=== PATIENT | female | born 1950 | race Caucasian/White ===

== ENCOUNTER → 2020-03-12 12:50 | Outpatient (BNVA) | payer MEDICARE, SELFPAY | PROVIDERS: PCP Internal Medicine; Visit Provider Anesthesiology | DX: M17.0 Bilateral primary osteoarthritis of knee (principal); M47.816 Spondylosis without myelopathy or radiculopathy, lumbar region; G89.4 Chronic pain syndrome | CPT/HCPCS: 99202 ==

== ENCOUNTER 2020-03-24 09:38 | Outpatient (REF) | payer MEDICARE, SELFPAY ==
--- NOTE | 2020-03-24 10:48 | XR_ITS ---
EXAMINATION: BILATERAL KNEE X-RAY CLINICAL INFORMATION: Bilateral osteoarthritis COMPARISON: None TECHNIQUE: 3 views of each knee FINDINGS: Right: Bone alignment is normal. No fracture or dislocation is seen. There is mild medial femoral tibial joint space narrowing. Joint spaces are otherwise normal. There is no joint effusion. Left: Bone alignment is normal. No fracture or dislocation is seen. There is mild medial femoral tibial joint space narrowing. Joint spaces are otherwise normal. There is no joint effusion. XR/XR knee RT 3V IMPRESSION: Mild bilateral medial femoral tibial joint space narrowing.
--- NOTE | 2020-03-24 10:48 | XR_ITS ---
EXAMINATION: BILATERAL KNEE X-RAY CLINICAL INFORMATION: Bilateral osteoarthritis COMPARISON: None TECHNIQUE: 3 views of each knee FINDINGS: Right: Bone alignment is normal. No fracture or dislocation is seen. There is mild medial femoral tibial joint space narrowing. Joint spaces are otherwise normal. There is no joint effusion. Left: Bone alignment is normal. No fracture or dislocation is seen. There is mild medial femoral tibial joint space narrowing. Joint spaces are otherwise normal. There is no joint effusion. XR/XR knee LT 3V IMPRESSION: Mild bilateral medial femoral tibial joint space narrowing.
== END 2020-03-24 09:39 | disposition home or self-care (01) ==
LOC: HO.XRAY 09:38
PROVIDERS: PCP Internal Medicine; Visit Provider Anesthesiology
DX: M17.0 Bilateral primary osteoarthritis of knee (principal)
CPT/HCPCS: 73562; 99212

== ENCOUNTER 2020-04-08 07:41 | Outpatient (REF) | payer MEDICARE, SELFPAY ==
--- NOTE | 2020-04-08 08:02 | FL_ITS ---
EXAMINATION: XR FLUOROSCOPY WITH IMAGES CLINICAL INFORMATION: Spondylosis without myelopathy or radiculopathy, lumbar region COMPARISON: None. TECHNIQUE: Fluoroscopy time: 0.9 minutes DAP: 7.87 Gycm2 Images: 7 FINDINGS: Multiple intraoperative fluoroscopic images are submitted during injection of the lumbar spine. Correlation with operative report. Evaluation is limited secondary to fluoroscopic technique. FL/FL guidance in treatment room IMPRESSION: Intra-operative fluoroscopic imaging provided by radiology during injection of the lumbar spine. Please refer to operative note for further information.
== END 2020-04-08 07:42 | disposition home or self-care (01) ==
LOC: HO.RADIR 07:41
PROVIDERS: Visit Provider Anesthesiology
DX: M47.816 Spondylosis without myelopathy or radiculopathy, lumbar region (principal); M17.0 Bilateral primary osteoarthritis of knee; G89.4 Chronic pain syndrome; Z88.1 Allergy status to other antibiotic agents; Z88.2 Allergy status to sulfonamides
CPT/HCPCS: 64493; 64494; 64495; Q9967

== ENCOUNTER → 2020-04-09 10:18 | Outpatient (BNVA) | payer MEDICARE, SELFPAY | PROVIDERS: PCP Internal Medicine; Visit Provider Anesthesiology | DX: M17.0 Bilateral primary osteoarthritis of knee (principal); M47.816 Spondylosis without myelopathy or radiculopathy, lumbar region; G89.4 Chronic pain syndrome | CPT/HCPCS: 99212 ==

== ENCOUNTER → 2020-04-14 11:31 | Outpatient (BNVA) | payer MEDICARE, SELFPAY | PROVIDERS: PCP Internal Medicine; Visit Provider Anesthesiology | DX: M17.0 Bilateral primary osteoarthritis of knee (principal); M47.816 Spondylosis without myelopathy or radiculopathy, lumbar region; G89.4 Chronic pain syndrome | CPT/HCPCS: Q3014 ==

== ENCOUNTER → 2020-05-07 09:41 | Outpatient (BNVA) | payer MEDICARE, SELFPAY | PROVIDERS: PCP Internal Medicine; Visit Provider Anesthesiology | DX: M17.0 Bilateral primary osteoarthritis of knee (principal); M47.816 Spondylosis without myelopathy or radiculopathy, lumbar region; G89.4 Chronic pain syndrome; Z79.899 Other long term (current) drug therapy | CPT/HCPCS: 99212 ==

== ENCOUNTER → 2020-06-27 09:59 | Outpatient (BNVA) | payer MEDICARE, SELFPAY | PROVIDERS: PCP Internal Medicine; Visit Provider Nurse Practitioner Family | DX: M17.0 Bilateral primary osteoarthritis of knee (principal); M47.816 Spondylosis without myelopathy or radiculopathy, lumbar region; G89.4 Chronic pain syndrome | CPT/HCPCS: 99212 ==

== ENCOUNTER 2020-07-15 06:20 | Outpatient (REF) | payer MEDICARE, SELFPAY ==
--- NOTE | ~2020-07-15 | FL_ITS ---
EXAMINATION: XR FLUOROSCOPY WITH IMAGES CLINICAL INFORMATION: M47.816 - Spondylosis without myelopathy or radiculopathy COMPARISON: Fluoroscopic images 04/08/2020 TECHNIQUE: Fluoroscopy performed by Siena Bearden NP. Fluoroscopy time: 0.6 minutes DAP: 4.23 Gycm2 Images: 8 FINDINGS: There may be lumbar segmentation anomaly with transitional vertebrae lumbosacral junction. There are lumbar degenerative disc changes. There are surgical clips seen and possibly lumbosacral disc spacer again noted. There are spinal needles overlying the outer aspect left neural foramina at the first through fourth presacral disc spaces and also on the right fourth presacral disc space outer neural foramen. There is associated contrast in the nerve sheaths. FL/FL guidance in treatment room IMPRESSION: Fluoroscopy for pain management procedures.
== END 2020-07-15 06:21 | disposition home or self-care (01) ==
LOC: HO.RADIR 06:20
PROVIDERS: Visit Provider Anesthesiology
DX: M47.816 Spondylosis without myelopathy or radiculopathy, lumbar region (principal)
CPT/HCPCS: 64493; 64494; 64495; Q9967

== ENCOUNTER → 2020-07-21 10:58 | Outpatient (BNVA) | payer MEDICARE, SELFPAY | PROVIDERS: PCP Internal Medicine; Visit Provider Anesthesiology | DX: M54.5 Low back pain (principal) | CPT/HCPCS: 99211 ==

== ENCOUNTER → 2020-07-25 09:52 | Outpatient (BNVA) | payer MEDICARE, SELFPAY | PROVIDERS: PCP Internal Medicine; Visit Provider Nurse Practitioner Family | DX: M17.0 Bilateral primary osteoarthritis of knee (principal); M47.816 Spondylosis without myelopathy or radiculopathy, lumbar region; G89.4 Chronic pain syndrome | CPT/HCPCS: 99212 ==

== ENCOUNTER → 2020-08-22 09:27 | Outpatient (BNVA) | payer MEDICARE, SELFPAY | PROVIDERS: PCP Internal Medicine; Visit Provider Nurse Practitioner Family | DX: M47.816 Spondylosis without myelopathy or radiculopathy, lumbar region (principal); M17.0 Bilateral primary osteoarthritis of knee; G89.4 Chronic pain syndrome; Z79.899 Other long term (current) drug therapy | CPT/HCPCS: 99212 ==

== ENCOUNTER → 2020-09-18 10:12 | Outpatient (BNVA) | payer MEDICARE, SELFPAY | PROVIDERS: PCP Internal Medicine; Visit Provider Anesthesiology | DX: M17.0 Bilateral primary osteoarthritis of knee (principal); M47.816 Spondylosis without myelopathy or radiculopathy, lumbar region; G89.4 Chronic pain syndrome | CPT/HCPCS: 99212 ==

== ENCOUNTER → 2020-10-14 10:37 | Outpatient (BNVA) | payer MEDICARE, SELFPAY | PROVIDERS: PCP Internal Medicine; Visit Provider Nurse Practitioner Family | DX: M17.0 Bilateral primary osteoarthritis of knee (principal); M47.816 Spondylosis without myelopathy or radiculopathy, lumbar region; G89.4 Chronic pain syndrome | CPT/HCPCS: 99212 ==

== ENCOUNTER → 2020-11-12 09:55 | Outpatient (BNVA) | payer MEDICARE, SELFPAY | PROVIDERS: PCP Internal Medicine; Visit Provider Anesthesiology | DX: M17.0 Bilateral primary osteoarthritis of knee (principal); M47.816 Spondylosis without myelopathy or radiculopathy, lumbar region; G89.4 Chronic pain syndrome | CPT/HCPCS: 99212 ==

== ENCOUNTER 2020-12-05 11:24 | Day surgery (SDC) | payer MEDICARE, SELFPAY ==
[2020-12-01 14:21] VITALS: BMI 23.8
--- NOTE | ~2020-12-05 | FL_ITS ---
EXAMINATION: XR FLUOROSCOPY WITH IMAGES CLINICAL INFORMATION: Back pain. MBB ablation. COMPARISON: Fluoroscopic spot views 07/15/2020 TECHNIQUE: Fluoroscopy performed by Dr. Goran Crook. Fluoroscopy time: 1.14 minutes DAP: 9.43 Gycm2 Images: 3 FINDINGS: There are needles/electrodes overlying the bilateral outer L2, L3, L4, and L5 neural foramen. There are degenerative changes again noted lower lumbar spine. Surgical clips and probable lumbosacral disc space are again noted. FL/FL guidance in OR IMPRESSION: Fluoroscopy for pain management procedures.
--- NOTE | 2020-12-05 07:20 | MHC.SHP ---
Pre-Procedural Eval Section A Date of Service: 12/05/20 The patient is an INPATIENT: No Changes since office visit: Yes Patient answered all questions The History & Physical has been completed within 30 days and I have reviewed it.: No Section B Chief Complaint: Spondylosis of Lumbar Spine Details of Present Illness: as above Relevant Family History (Specify if Yes): No Relevant Social History: None Present Medications: see Short Stay Collaborative assessment Medical History: No relevant PMH History of Previous Operations: No relevant previous surgery Allergies: Allergies Allergy/AdvReac Type Severity Reaction Status Date / Time sulfamethoxazole Allergy anaphylaxis Verified 11/12/20 10:17 [From Bactrim] trimethoprim [From Bactrim] Allergy anaphylaxis Verified 11/12/20 10:17 Review of Systems Sugical H&P ROS: Negative: Constitution, Cardiovascular, Respiratory, Neurological, Psychiatric, Hem-Onc, Allergic/Immunologic, Gastrointestinal, Genitourinary, Musculoskeletal, Integumentary, Endocrine and Eyes/Ears/Nose/Throat Exam Surgical H&P Exam: Normal: HEENT, Normal: Heart, Normal: Lungs, Normal: Extremities, Normal: Abdomen, Normal: Skin and Normal: Neurological Plan Diagnosis/Plan: Unchanged I have reviewed the history and physical and performed a pertinent physical examination on my patient. No changes have occurred unless specified.
--- NOTE | 2020-12-05 07:35 | P.OP_ITS ---
Operative Note Operative Note Date of Service: 12/05/20 Narrative: ? Informed consent was explained to the patient. All questions were explained and answered.? The patient was taken inside of the operating room where she was positioned prone on the operating table.?ASA monitors applied and the patient was deeply sedated. ? Time-out was performed delineating patient's name and date of , correct site, side, the nature of the procedure, patient's allergy, preoperative antibiotic if needed.? All operating room staff was participating in OR time-out procedure.?? ? Her lower back was prepped with duraprep and draped with sterile towels.? Sterilely draped C-arm was brought over the operating field and sq picture of L3,L4-5 vertebra as and S1 vertebra were delineated on the screen.Significant scolyotic rotation of the spine was noted on the images.? Points of interest were delineated as connection of superior articular process of L3, L4 and L5 vertebra bilaterally with corresponding transverse processes as well as connection of the sacral alae bilaterally with superior articular process of S1.? The projection of the point of interest to the skin were injected with the small amount of local anesthetic lidocaine 2% 1-1.5 cc.? And after that 18 gauge 100 mm radiofrequency cannulas were driven to the point of interest in tunnel vision fashion under oblique view .? After needles gently contacted the bone at the point of interests the stylets were removed from the needles and electrodes were inserted into the needles.? Electrodes were connected to the radiofrequency machine and testing was performed for the patient's motor function.? There were no pathological motor response indicating stimulation of somatic nerves.? After that electrodes were removed and each needle was injected with small amount of bupivacaine 0.5% 1-1.5 cc mixed with trace amount of Kenalog.? Upon completion of the injections the electrodes were reinserted and energy of 80 degree centigrade for 90 seconds- was applied to each needle 1st on the left side and then on the right.? Upon completion of the energy application the needles were rotated 180? and energy applied with the same temperature and with the same time.? Upon completion of the injections needles were removed and sterile dress ings were applied. After performing procedure on the right side the procedure was repeated on the left. The technique was used the same. Patient recovered uneventfully and went home without immediate complications.
[2020-12-05 11:59] VITALS: BP 137/73; PULSE 74; RESP 15; TEMP 36.6; O2SAT 96; BMI 23.8
--- NOTE | 2020-12-05 12:11 | HO.ANESPROP2 ---
[facility] Active Problems Active Problems: All Active Problems (Updated 12/01/20 @ 14:15 by Silke Lara RN) Chronic pain syndrome (Acute) Spondylosis of lumbar spine (Acute) Osteoarthritis of knees, bilateral (Acute) Past Medical History Medical History Chronic pain syndrome HTN (hypertension) Hypothyroid Migraine Osteoarthritis of knees, bilateral Spondylosis of lumbar spine Surgical History History of Problems with Anesthesia: No Social History Social History Advance Directives Information Provided: Yes (informational brochure mailed to patient) Meds Allergies Allergy/AdvReac Type Severity Reaction Status Date / Time sulfamethoxazole Allergy anaphylaxis Verified 11/12/20 10:17 [From Bactrim] trimethoprim [From Bactrim] Allergy anaphylaxis Verified 11/12/20 10:17 Home Medications Medication Instructions Recorded Confirmed Last Taken Type cyclobenzaprine 10 mg tablet 10 mg PO TID 06/27/20 10/14/20 Unknown History amlodipine 5 mg tablet 5 mg PO DAILY tab 10/14/20 10/14/20 Unknown History [id number]-gnlqfgwx 1 cap PO ONCE PRN cap 10/14/20 10/14/20 Unknown History 50 mg-300 mg-40 mg capsule levothyroxine 125 mcg tablet 125 mcg PO DAILY tab 10/14/20 10/14/20 12/05/20 History 125 mcg trazodone 100 mg tablet 100 mg PO BEDTIME tab 10/14/20 10/14/20 Unknown History lisinopril 10 mg tablet mg PO 11/12/20 Unknown History Exam Exam Date and Time: December 05, 2020 1211 Height,Weight and Vital Signs: Height 5 ft 2 in Weight 58.967 kg Last Vital Signs Temp 97.9 F 12/05/20 11:59 Pulse 74 12/05/20 11:59 Resp 15 12/05/20 11:59 BP 137/73 12/05/20 11:59 Pulse Ox 96 12/05/20 11:59 Airway Mallampati Class: II TM Dist: >3cm Neck ROM: Full Loose/Missing/Broken Teeth: No Heart: RRR Lungs: CTA Assessment and Plan Assessment Anesthesia Assessment: Anesthesia Plan Discussed and Chart Reviewed Final Anesthetic Review History of Problems with Anesthesia: No NPO: Yes ASA Class: II Final Preanesthetic Review: Meds/Allgs Chart Reviewed, Consent Obtained/Reviewed and Anes Risks/Benef Reviewed Patient Risk: Low Procedure Risk: Intermediate Anesthetic Plan Anesthetic Plan: MAC: Disposition: Standard PACU
[2020-12-05 14:00] VITALS: BP 110/59; PULSE 79; RESP 11; TEMP 36.2; O2SAT 96
--- NOTE | 2020-12-05 14:06 | P.BOP_ITS ---
Brief Operative Note Date of Service: 12/05/20 Pre-op diagnosis: spondylosis and scoliosis lumbar spine. Post-op diagnosis: same Procedure: RFA L2, L3, L4, L5 bilateral median branches. Surgeon: Goran Crook MD Anesthesia: MAC Was an Anode Rebuilder used for this Procedure?: No Estimated blood loss (mL): 6 Pathology: none sent Condition: stable Disposition: PACU
[2020-12-05 14:15] VITALS: BP 121/69; PULSE 75; RESP 16; O2SAT 96
[2020-12-05 14:30] VITALS: BP 136/74; PULSE 77; RESP 16; TEMP 36.2; O2SAT 96
== END 2020-12-05 14:45 | disposition home or self-care (01) ==
PROVIDERS: PCP Internal Medicine; Visit Provider Anesthesiology
PROC: (CPT 64635; principal; 2020-12-05 12:50)
DX: M47.816 Spondylosis without myelopathy or radiculopathy, lumbar region (principal); G89.4 Chronic pain syndrome; M17.0 Bilateral primary osteoarthritis of knee; Z79.899 Other long term (current) drug therapy; Z88.2 Allergy status to sulfonamides; Z88.1 Allergy status to other antibiotic agents
CPT/HCPCS: 64635; 64636; J2250; J3010; J3300

== ENCOUNTER → 2020-12-10 10:14 | Outpatient (BNVA) | payer MEDICARE, SELFPAY | PROVIDERS: PCP Internal Medicine; Visit Provider Anesthesiology | DX: Z51.81 Encounter for therapeutic drug level monitoring (principal); M17.0 Bilateral primary osteoarthritis of knee; M47.816 Spondylosis without myelopathy or radiculopathy, lumbar region; G89.4 Chronic pain syndrome | CPT/HCPCS: 99212 ==

== ENCOUNTER → 2021-01-07 10:28 | Outpatient (BNVA) | payer MEDICARE, SELFPAY | PROVIDERS: PCP Internal Medicine; Visit Provider Anesthesiology | DX: Z51.81 Encounter for therapeutic drug level monitoring (principal); M17.0 Bilateral primary osteoarthritis of knee; M47.816 Spondylosis without myelopathy or radiculopathy, lumbar region; G89.4 Chronic pain syndrome | CPT/HCPCS: 99212 ==

== ENCOUNTER → 2021-02-11 10:22 | Outpatient (BNVA) | payer MEDICARE, SELFPAY | PROVIDERS: PCP Internal Medicine; Visit Provider Anesthesiology | DX: Z51.81 Encounter for therapeutic drug level monitoring (principal); M17.0 Bilateral primary osteoarthritis of knee; M47.816 Spondylosis without myelopathy or radiculopathy, lumbar region; G89.4 Chronic pain syndrome | CPT/HCPCS: 99212 ==

== ENCOUNTER → 2021-03-16 12:25 | Outpatient (BNVA) | payer MEDICARE, SELFPAY | PROVIDERS: PCP Internal Medicine; Visit Provider Anesthesiology | DX: Z51.81 Encounter for therapeutic drug level monitoring (principal); F11.20 Opioid dependence, uncomplicated | CPT/HCPCS: 99211 ==

== ENCOUNTER → 2021-04-13 13:57 | Outpatient (BNVA) | payer MEDICARE, SELFPAY | PROVIDERS: PCP Internal Medicine; Visit Provider Anesthesiology | DX: Z51.81 Encounter for therapeutic drug level monitoring (principal); F11.20 Opioid dependence, uncomplicated; M17.0 Bilateral primary osteoarthritis of knee; M47.816 Spondylosis without myelopathy or radiculopathy, lumbar region; G89.4 Chronic pain syndrome | CPT/HCPCS: 99212 ==

== ENCOUNTER → 2021-05-11 10:52 | Outpatient (BNVA) | payer MEDICARE, SELFPAY | PROVIDERS: PCP Internal Medicine; Visit Provider Anesthesiology | DX: Z51.81 Encounter for therapeutic drug level monitoring (principal); F11.20 Opioid dependence, uncomplicated; M17.0 Bilateral primary osteoarthritis of knee; M47.816 Spondylosis without myelopathy or radiculopathy, lumbar region; G89.4 Chronic pain syndrome | CPT/HCPCS: 99212 ==

== ENCOUNTER 2021-06-12 10:06 | Day surgery (SDC) | payer MEDICARE, SELFPAY ==
--- NOTE | 2021-06-11 12:37 | P.CONAN_ITS ---
Documented by User: Lynsey Polanco NP 06/11/21 12:42 HPI - Anesthesia Eval Consult details Narrative: 70yo F for Bilateral Medial Branch Radiofrequency AB s/p same 12/2020 with MAC Chronic opioids PMFSH Active Problems Active Problems: All Active Problems (Updated 12/01/20 @ 14:15 by Silke Lara RN) Chronic pain syndrome (Acute) Spondylosis of lumbar spine (Acute) Osteoarthritis of knees, bilateral (Acute) Past Medical History Medical History Chronic pain syndrome HTN (hypertension) Hypothyroid Migraine Osteoarthritis of knees, bilateral Spondylosis of lumbar spine Surgical History History of Problems with Anesthesia: No Social History Social History Patient Tobacco Use Status: Never used Tobacco Second Hand Smoke Exposure: No Use of substances other than those prescribed or required for medical reasons: No Are you DNR?: No Advance Directives: No Advance Directives Information Provided: Yes Advance Directives on File: No Meds Allergies Allergy/AdvReac Type Severity Reaction Status Date / Time sulfamethoxazole Allergy anaphylaxis Verified 05/11/21 11:11 [From Bactrim] trimethoprim [From Bactrim] Allergy anaphylaxis Verified 05/11/21 11:11 Home Medications Medication Instructions Recorded Confirmed Last Taken Type cyclobenzaprine 10 mg tablet 10 mg PO TID 06/27/20 03/16/21 Unknown History amlodipine 5 mg tablet 5 mg PO DAILY tab 10/14/20 03/16/21 06/12/21 History levothyroxine 125 mcg tablet 125 mcg PO DAILY tab 10/14/20 03/16/21 06/12/21 History trazodone 100 mg tablet 100 mg PO BEDTIME tab 10/14/20 03/16/21 Unknown History lisinopril 10 mg tablet mg PO 11/12/20 03/16/21 Unknown History Exam Exam Date and Time: June 11, 2021 123 Assessment and Plan Assessment Anesthesia Assessment: Chart Reviewed Final Anesthetic Review History of Problems with Anesthesia: No Documented by User: Kiara Mcnally MD 06/12/21 11:02 [facility] Past Medical History Medical History Chronic pain syndrome HTN (hypertension) Hypothyroid Migraine Osteoarthritis of knees, bilateral Spondylosis of lumbar spine Social History Social History Patient Tobacco Use Status: Never used Tobacco Second Hand Smoke Exposure: No Use of substances other than those prescribed or required for medical reasons: No Are you DNR?: No Advance Directives: No Advance Directives Information Provided: Yes Advance Directives on File: No Meds Allergies Allergy/AdvReac Type Severity Reaction Status Date / Time sulfamethoxazole Allergy anaphylaxis Verified 05/11/21 11:11 [From Bactrim] trimethoprim [From Bactrim] Allergy anaphylaxis Verified 05/11/21 11:11 Home Medications Medication Instructions Recorded Confirmed Last Taken Type cyclobenzaprine 10 mg tablet 10 mg PO TID 06/27/20 03/16/21 Unknown History amlodipine 5 mg tablet 5 mg PO DAILY tab 10/14/20 03/16/21 06/12/21 History levothyroxine 125 mcg tablet 125 mcg PO DAILY tab 10/14/20 03/16/21 06/12/21 History trazodone 100 mg tablet 100 mg PO BEDTIME tab 10/14/20 03/16/21 Unknown History lisinopril 10 mg tablet mg PO 11/12/20 03/16/21 Unknown History Exam Airway Mallampati Class: II TM Dist: >3cm Neck ROM: Full Loose/Missing/Broken Teeth: No Heart: RRR Lungs: CTA Assessment and Plan Final Anesthetic Review NPO: Yes ASA Class: II Final Preanesthetic Review: Meds/Allgs Chart Reviewed, Consent Obtained/Reviewed and Anes Risks/Benef Reviewed Patient Risk: Low Procedure Risk: Low Anesthetic Plan Anesthetic Plan: MAC: Disposition: Standard PACU
--- NOTE | ~2021-06-12 | FL_ITS ---
EXAMINATION: XR FLUOROSCOPY WITH IMAGES CLINICAL INFORMATION: Lumbar medial branch RFA COMPARISON: Fluoroscopic spot views lumbar spine 12/05/2020. TECHNIQUE: Fluoroscopy performed by Dr. Goran Crook. Fluoroscopy time: 0.9 minutes DAP: 5.12 Gycm2 Images: 3 FINDINGS: There are spinal needles/electrodes overlying the outer right L3, L4, and L5 neural foramen and the outer left L4, L5, and S1 neural foramen. There are degenerative changes in the lower lumbar spine with disc narrowing and vertebral spurring. FL/FL guidance in OR IMPRESSION: Fluoroscopy for pain management procedures.
[2021-06-12 10:20] VITALS: BMI 23.8
[2021-06-12 10:34] VITALS: BP 124/75; PULSE 78; RESP 16; TEMP 36.7; O2SAT 93
--- NOTE | 2021-06-12 10:41 | MHC.SHP ---
Pre-Procedural Eval Section A Date of Service: 06/12/21 Section B Chief Complaint: spondylosis Details of Present Illness: spondylosis lumbar spine without myelopathy or radiculopathy Relevant Family History (Specify if Yes): No Relevant Social History: None Present Medications: see Short Stay Collaborative assessment Medical History: No relevant PMH History of Previous Operations: No relevant previous surgery Allergies: Allergies Allergy/AdvReac Type Severity Reaction Status Date / Time sulfamethoxazole Allergy anaphylaxis Verified 05/11/21 11:11 [From Bactrim] trimethoprim [From Bactrim] Allergy anaphylaxis Verified 05/11/21 11:11 Review of Systems Sugical H&P ROS: Negative: Constitution, Cardiovascular, Respiratory, Neurological, Psychiatric, Hem-Onc, Allergic/Immunologic, Gastrointestinal, Genitourinary, Musculoskeletal, Integumentary, Endocrine and Eyes/Ears/Nose/Throat Exam Surgical H&P Exam: Normal: HEENT, Normal: Heart, Normal: Lungs, Normal: Extremities, Normal: Abdomen, Normal: Skin and Normal: Neurological Plan Diagnosis/Plan: Unchanged I have reviewed the history and physical and performed a pertinent physical examination on my patient. No changes have occurred unless specified.
[2021-06-12] MEDS: Lactated Ringers 1,000 ML 100 ML IVCONT (10:49)
--- NOTE | 2021-06-12 11:00 | W.PM.OPN ---
Operative Note Operative Note Date of Service: 06/12/21 Narrative: ? Informed consent was explained to the patient. All questions were explained and answered.? The patient was taken inside of the operating room where she was positioned prone on the operating table.?ASA monitors applied and the patient was deeply sedated. ? Time-out was performed delineating patient's name and date of , correct site, side, the nature of the procedure, patient's allergy, preoperative antibiotic if needed.? All operating room staff was participating in OR time-out procedure.?? ? Her lower back was prepped with duraprep and draped with sterile towels.? Sterilely draped C-arm was brought over the operating field and sq picture of L3,L4-5 vertebra as and S1 vertebra were delineated on the screen.Significant scolyotic rotation of the spine was noted on the images.? Points of interest were delineated as connection of superior articular process of L3, L4 and L5 vertebra bilaterally with corresponding transverse processes as well as connection of the sacral alae bilaterally with superior articular process of S1.? The projection of the point of interest to the skin were injected with the small amount of local anesthetic lidocaine 2% 1-1.5 cc.? And after that 18 gauge 100 mm radiofrequency cannulas were driven to the point of interest in tunnel vision fashion under oblique view .? After needles gently contacted the bone at the point of interests the stylets were removed from the needles and electrodes were inserted into the needles.? Electrodes were connected to the radiofrequency machine and testing was performed for the patient's motor function.? There were no pathological motor response indicating stimulation of somatic nerves.? After that electrodes were removed and each needle was injected with small amount of mixture of lidocain 2% and bupivacaine 0.5% 1:1 mixed with trace amount of Kenalog.? Upon completion of the injections the electrodes were reinserted and energy of 80 degree centigrade for 90 seconds- was applied to each needle 1st on the right side and then on the left.?Upon completion of the first application the cannulas were rotated 180 degrees and energy application were repeated at the same setting. Upon completion of the injections needles were removed and sterile dressings were applied. . Patient recovered uneventfully and went home without immediate complications.
[2021-06-12 12:30] VITALS: BP 102/58; PULSE 71; RESP 12; TEMP 36.3; O2SAT 98
--- NOTE | 2021-06-12 12:35 | PM.OP ---
Brief Operative Note Date of Service: 06/12/21 Pre-op diagnosis: Spondylosis lumbar spine without myolopathy or radiculopathy Post-op diagnosis: same Procedure: RFA b/l MB L3- L4- DRL5. Surgeon: Goran Crook MD Anesthesia: MAC Was an Information Security used for this Procedure?: No Estimated blood loss (mL): 1 Pathology: none sent Condition: stable Disposition: PACU
[2021-06-12 12:45] VITALS: BP 130/75; PULSE 68; RESP 16; O2SAT 98
[2021-06-12 13:00] VITALS: BP 130/76; PULSE 67; RESP 16; TEMP 36.7; O2SAT 98
== END 2021-06-12 14:00 | disposition home or self-care (01) ==
PROVIDERS: PCP Internal Medicine; Visit Provider Anesthesiology
PROC: (CPT 64635; principal; 2021-06-12 12:40)
DX: M47.816 Spondylosis without myelopathy or radiculopathy, lumbar region (principal); M54.50 Low back pain, unspecified; G89.4 Chronic pain syndrome; M51.46 Schmorl's nodes, lumbar region; M41.26 Other idiopathic scoliosis, lumbar region; M17.0 Bilateral primary osteoarthritis of knee; Z79.891 Long term (current) use of opiate analgesic; Z88.2 Allergy status to sulfonamides; I10 Essential (primary) hypertension
CPT/HCPCS: 64635; 64636 ×2; J2250; J2370; J3010; J3300

== ENCOUNTER → 2021-06-15 10:25 | Outpatient (BNVA) | payer MEDICARE, SELFPAY | PROVIDERS: PCP Internal Medicine; Visit Provider Anesthesiology | DX: M47.816 Spondylosis without myelopathy or radiculopathy, lumbar region (principal); G89.4 Chronic pain syndrome; M17.0 Bilateral primary osteoarthritis of knee; Z79.899 Other long term (current) drug therapy | CPT/HCPCS: 99212 ==

== ENCOUNTER → 2021-07-15 10:58 | Outpatient (BNVA) | payer MEDICARE, SELFPAY | PROVIDERS: PCP Internal Medicine; Visit Provider Nurse Practitioner Family | DX: Z51.81 Encounter for therapeutic drug level monitoring (principal); F11.20 Opioid dependence, uncomplicated; M17.0 Bilateral primary osteoarthritis of knee; M47.816 Spondylosis without myelopathy or radiculopathy, lumbar region; G89.4 Chronic pain syndrome | CPT/HCPCS: 99212 ==

== ENCOUNTER → 2021-08-12 10:26 | Outpatient (BNVA) | payer MEDICARE, SELFPAY | PROVIDERS: PCP Internal Medicine; Visit Provider Anesthesiology | DX: Z51.81 Encounter for therapeutic drug level monitoring (principal); F11.20 Opioid dependence, uncomplicated | CPT/HCPCS: 99211 ==

== ENCOUNTER → 2021-09-16 10:28 | Outpatient (BNVA) | payer MEDICARE, SELFPAY | PROVIDERS: PCP Internal Medicine; Visit Provider Anesthesiology | DX: Z51.81 Encounter for therapeutic drug level monitoring (principal); F11.20 Opioid dependence, uncomplicated; M17.0 Bilateral primary osteoarthritis of knee; M47.816 Spondylosis without myelopathy or radiculopathy, lumbar region; G89.4 Chronic pain syndrome | CPT/HCPCS: 99212 ==

== ENCOUNTER → 2021-10-14 10:09 | Outpatient (BNVA) | payer MEDICARE, SELFPAY | PROVIDERS: PCP Internal Medicine; Visit Provider Anesthesiology | DX: G89.4 Chronic pain syndrome (principal); M17.0 Bilateral primary osteoarthritis of knee; M47.816 Spondylosis without myelopathy or radiculopathy, lumbar region; Z79.891 Long term (current) use of opiate analgesic | CPT/HCPCS: 99212 ==

== ENCOUNTER → 2021-11-11 10:14 | Outpatient (BNVA) | payer MEDICARE, SELFPAY | PROVIDERS: PCP Internal Medicine; Visit Provider Anesthesiology | DX: Z51.81 Encounter for therapeutic drug level monitoring (principal); F11.20 Opioid dependence, uncomplicated | CPT/HCPCS: 99211 ==

== ENCOUNTER 2021-11-24 08:09 | Day surgery (SDC) | payer MEDICARE, SELFPAY ==
--- NOTE | ~2021-11-24 | FL_ITS ---
EXAMINATION: XR FLUOROSCOPY WITH IMAGES CLINICAL INFORMATION: Sprint lumbar L5 stimulator implant . COMPARISON: None. TECHNIQUE: Fluoroscopy performed by Dr.Yuri Crook. Fluoroscopy time: 0.3 minutes. Cumulative Dose: 3.40 mGy. DAP: 0.927 Gy-cm2. Images: 1. FINDINGS: There is a single image obtained under fluoroscopy revealing probes positioned inferior and medial to L5 pedicles. There is loss of L4-L5 disc height with endplate sclerosis and endplate spondylosis. FL/FL guidance in OR IMPRESSION: Fluoroscopy guidance was provided to referring physician for pain management.
--- NOTE | 2021-11-24 07:26 | MHC.SHP ---
Pre-Procedural Eval Section A Date of Service: 11/24/21 The patient is an INPATIENT: No Changes since office visit: Yes Patient answered all questions The History & Physical has been completed within 30 days and I have reviewed it.: No Section B Chief Complaint: Spondylosis without myelopathy or radiculopathy, l Details of Present Illness: as above Relevant Family History (Specify if Yes): No Relevant Social History: None Present Medications: see Short Stay Collaborative assessment Medical History: No relevant PMH History of Previous Operations: No relevant previous surgery Allergies: Allergies Allergy/AdvReac Type Severity Reaction Status Date / Time sulfamethoxazole Allergy anaphylaxis Verified 11/11/21 10:37 [From Bactrim] trimethoprim [From Bactrim] Allergy anaphylaxis Verified 11/11/21 10:37 Review of Systems Sugical H&P ROS: Negative: Constitution, Cardiovascular, Respiratory, Neurological, Psychiatric, Hem-Onc, Allergic/Immunologic, Gastrointestinal, Genitourinary, Musculoskeletal, Integumentary, Endocrine and Eyes/Ears/Nose/Throat Exam Surgical H&P Exam: Normal: HEENT, Normal: Heart, Normal: Lungs, Normal: Extremities, Normal: Abdomen, Normal: Skin and Normal: Neurological Plan Diagnosis/Plan: Unchanged I have reviewed the history and physical and performed a pertinent physical examination on my patient. No changes have occurred unless specified.
--- NOTE | 2021-11-24 08:32 | W.PM.OPN ---
Operative Note Operative Note Date of Service: 11/24/21 Narrative: Percutaneous implantation of peripheral nerve stimulation Sprint system. After the risks, benefits and alternatives were discussed with the patient and informed consent was obtained, patient was brought to the operating room and placed in the prone position. ? Time out was performed delineating correct site and side of the procedure , name and of the patient, patient participated in time out procedure.? Patient received antibiotics 2 g cefazolin approximately 30 minutes before the onset of the procedure. C-arm was brought over the operating field and clear picture of the L5 lamina on the right was delineated on the screen.? The lower back of the patient was prepped with ChloraPrep and draped with full body fenestrated drape. The upper central portion of the lamina was chosen as a target of the needle tip insertion . After identifying and marking the intended target, the skin around the planned entry point and the subcutaneous tissues were injected with local anesthetic forming skin wheal..A percutaneous sleeve and stimulating probe lead introduction system were assembled, inserted and advanced through the skin wheal to the? point of interest under C-arm view in tunnel vision fashion, the introducer needle was delivered to a location in proximity to the nerve. multiple stimulations were performed and? Nerve target acquisition was confirmed noting generation of? in the? corresponding to the nerve being stimulated. Various electrical parameter combinations were tested overlapping the distribution of the patient?s typical region of pain. After that the procedure was repeated at the left K5 lamina in the same very fashion The patient reported the timulation covering the painful area. The stimulating probes wereremoved from the introducer and a percutaneous leads was guided through the needle and delivered to a location in similar proximity to the nerve. Final location was verified with electrical stimulation. The introducer needle was removed, and the exposed end of the percutaneous lead was attached to an external stimulator unit. Various electrical parameter combinations were again tested until the patient indicated paresthesia or muscle tension overlapping the distribution of the patient?s typical region of pain. After confirming that lead impedance was in the normal range, the external unit was detached, the needle was removed, and the lead was anchored at the skin. The lead was threaded into the connector block and electrical continuity and desired patient response was confirmed. The connector block was attached to the external stimulator unit. ? The site was covered with a sterile occlusive dressing . Upon completion of the procedure the patient was taken outside the OR where she recovered uneventfully she went home without immediate complications.
[2021-11-24 08:53] VITALS: BP 131/70; PULSE 80; RESP 18; TEMP 36.6; O2SAT 98; BMI 23.8
--- NOTE | 2021-11-24 10:04 | P.BOP_ITS ---
Brief Operative Note Date of Service: 11/24/21 Pre-op diagnosis: spondylosis lumbar spine Post-op diagnosis: same Procedure: SPRINT PNS L5 bilateral Surgeon: Goran Crook MD Anesthesia: local Was an Sound Technician Supervisor used for this Procedure?: No Estimated blood loss (mL): 0 Pathology: none sent Condition: stable Disposition: PACU
[2021-11-24 10:11] VITALS: BP 127/64; PULSE 74; RESP 20; TEMP 36.6; O2SAT 97
== END 2021-11-24 10:40 | disposition home or self-care (01) ==
PROVIDERS: PCP Internal Medicine; Visit Provider Anesthesiology
PROC: (CPT 64555; principal; 2021-11-24 09:50)
DX: M47.816 Spondylosis without myelopathy or radiculopathy, lumbar region (principal); G89.4 Chronic pain syndrome; M17.0 Bilateral primary osteoarthritis of knee; I10 Essential (primary) hypertension; E03.9 Hypothyroidism, unspecified; G43.909 Migraine, unspecified, not intractable, without status migrainosus; Z79.899 Other long term (current) drug therapy; Z88.2 Allergy status to sulfonamides
CPT/HCPCS: 64555; C1778; J0690

== ENCOUNTER → 2021-12-02 14:25 | Outpatient (BNVA) | payer MEDICARE, SELFPAY | PROVIDERS: PCP Internal Medicine; Visit Provider Anesthesiology | DX: G89.4 Chronic pain syndrome (principal); M17.0 Bilateral primary osteoarthritis of knee; M47.816 Spondylosis without myelopathy or radiculopathy, lumbar region | CPT/HCPCS: 99212 ==

== ENCOUNTER → 2021-12-17 08:41 | Outpatient (BNVA) | payer MEDICARE, SELFPAY | PROVIDERS: PCP Internal Medicine; Visit Provider Anesthesiology | DX: Z51.81 Encounter for therapeutic drug level monitoring (principal); F11.20 Opioid dependence, uncomplicated; M17.0 Bilateral primary osteoarthritis of knee; M47.816 Spondylosis without myelopathy or radiculopathy, lumbar region; G89.4 Chronic pain syndrome | CPT/HCPCS: 99212 ==

== ENCOUNTER → 2022-01-25 13:25 | Outpatient (BNVA) | payer MEDICARE, SELFPAY | PROVIDERS: PCP Internal Medicine; Visit Provider Anesthesiology | DX: Z45.89 Encounter for adjustment and management of other implanted devices (principal) | CPT/HCPCS: 99211 ==

== ENCOUNTER → 2022-02-24 13:06 | Outpatient (BNVA) | payer MEDICARE, SELFPAY | PROVIDERS: PCP Internal Medicine; Visit Provider Anesthesiology | DX: G89.4 Chronic pain syndrome (principal); M17.0 Bilateral primary osteoarthritis of knee; M47.816 Spondylosis without myelopathy or radiculopathy, lumbar region; Z79.891 Long term (current) use of opiate analgesic | CPT/HCPCS: 99212 ==

== ENCOUNTER → 2022-03-31 09:09 | Outpatient (BNVA) | payer MEDICARE, SELFPAY | PROVIDERS: PCP Internal Medicine; Visit Provider Anesthesiology | DX: Z51.81 Encounter for therapeutic drug level monitoring (principal); F11.20 Opioid dependence, uncomplicated; M17.0 Bilateral primary osteoarthritis of knee; M47.816 Spondylosis without myelopathy or radiculopathy, lumbar region; G89.4 Chronic pain syndrome | CPT/HCPCS: 99212 ==

== ENCOUNTER → 2022-04-30 09:50 | Outpatient (BNVA) | payer MEDICARE, SELFPAY | PROVIDERS: PCP Internal Medicine; Visit Provider Anesthesiology | DX: Z13.89 Encounter for screening for other disorder (principal) ==

== ENCOUNTER 2022-05-23 22:22 | Emergency (ER) | payer OTHER, SELFPAY ==
[2022-05-23 22:33] VITALS: BP 160/80; BP 176/83; PULSE 100; PULSE 107; RESP 18; TEMP 36.3; O2SAT 100; O2SAT 94; BMI 24.7
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
[2022-05-23] MEDS: Ibuprofen 400 MG TABLET PO (23:36)
== END 2022-05-23 23:51 | disposition home or self-care (01) ==
PROVIDERS: Emergency Provider Emergency Medicine Emergency Medical Services; PCP Internal Medicine
DX: S09.90XA Unspecified injury of head, initial encounter (principal); M79.10 Myalgia, unspecified site; V43.52XA Car driver injured in collision with other type car in traffic accident, initial encounter; Y93.9 Activity, unspecified; Y92.410 Unspecified street and highway as the place of occurrence of the external cause; Y99.9 Unspecified external cause status; Z79.899 Other long term (current) drug therapy
CPT/HCPCS: 99283

== ENCOUNTER → 2022-05-27 09:15 | Outpatient (BNVA) | payer MEDICARE, SELFPAY | PROVIDERS: PCP Internal Medicine; Visit Provider Anesthesiology | DX: Z51.81 Encounter for therapeutic drug level monitoring (principal); F11.20 Opioid dependence, uncomplicated; M17.0 Bilateral primary osteoarthritis of knee; M47.816 Spondylosis without myelopathy or radiculopathy, lumbar region; G89.4 Chronic pain syndrome | CPT/HCPCS: 99212 ==

== ENCOUNTER → 2022-06-24 09:27 | Outpatient (BNVA) | payer MEDICARE, SELFPAY | PROVIDERS: PCP Internal Medicine; Visit Provider Anesthesiology | DX: Z51.81 Encounter for therapeutic drug level monitoring (principal); F11.20 Opioid dependence, uncomplicated | CPT/HCPCS: 99211 ==

== ENCOUNTER → 2022-08-04 14:56 | Outpatient (BNVA) | payer MEDICARE, SELFPAY | PROVIDERS: PCP Internal Medicine; Visit Provider Anesthesiology | DX: G89.4 Chronic pain syndrome (principal); M17.0 Bilateral primary osteoarthritis of knee; M47.816 Spondylosis without myelopathy or radiculopathy, lumbar region; Z79.891 Long term (current) use of opiate analgesic | CPT/HCPCS: 99212 ==

== ENCOUNTER → 2022-09-01 10:01 | Outpatient (BNVA) | payer MEDICARE, SELFPAY | PROVIDERS: PCP Internal Medicine; Visit Provider Anesthesiology | DX: G89.4 Chronic pain syndrome (principal); M17.0 Bilateral primary osteoarthritis of knee; M47.816 Spondylosis without myelopathy or radiculopathy, lumbar region | CPT/HCPCS: 99212 ==

== ENCOUNTER 2022-09-22 10:07 | Outpatient (AMB) | payer MEDICARE, SELFPAY ==
--- NOTE | 2022-09-22 10:19 | A.OFFVIS_ITS ---
Intake Vital Signs 09/22/22 10:25 Height 5 ft 2 in Weight 139 lb 2 oz BMI 25.4 BP 140/78 H Blood Pressure Location Rt brachial Position Sitting Pulse 78 Pulse Source Pulse Oximeter Pulse Oximetry (%) 94 Oxygen Delivery Method Room Air Intake Visit Reasons: Pill count, counted and correct Intake Note: Pt here for pill count. She presents Oxy 5mg tabs #31/should have #24, last taken this am 0700, pain rating 4/10 on pain scale Allergies sulfamethoxazole [From Bactrim] Allergy (Verified 09/22/22 10:27) anaphylaxis trimethoprim [From Bactrim] Allergy (Verified 09/22/22 10:27) anaphylaxis Medication List - Last Reconciled 09/22/22 by Kiara Mckenna RN amlodipine 5 mg PO DAILY cyclobenzaprine 10 mg PO TID ibuprofen 400 mg PO Q6H PRN levothyroxine 125 mcg PO DAILY lisinopril mg PO oxycodone 5 mg PO TID PRN 30 days trazodone 100 mg PO BEDTIME HPI HPI Comments History of Present Illness Details Marilyn is a pleasant 69-year-old female who is treated in my office chronic low back pain. She had good results from bilateral L5 sprint PNS she still enjoys reduced pain level which is reflected on the pill count as below. She had this procedure in January. She reports now that her pain is coming back she wants to repeat the procedure she wants to do it in November. Today she is here for a pill count. She is supposed to have 24 pills in her possession she presented with 31 pills. Her pill count is correct and demonstrates responsible attitude to were the opioid medications. She reports improved function and decrease in pain, with no noted side effects. Denies any constipation, sedation, nausea, dizziness or urinary retention. She states they have an increased ability to perform activities of daily living, interact socially and be more functional. [facility] Medical History Chronic pain syndrome HTN (hypertension) Hypothyroid Migraine Osteoarthritis of knees, bilateral Patent foramen ovale Spondylosis of lumbar spine Social History Patient Tobacco Use Status: Never used Tobacco Second Hand Smoke Exposure: No Review of Systems Const All systems reviewed & are unremarkable except as noted in HPI and below ENT Reports Normal hearing present Neuro Reports Normal hearing present, Denies Abnormal speech present and Denies confusion Psych Denies confusion Physical Exam Vital Signs: Last Vital Signs Pulse 78 09/22/22 10:25 BP 140/78 H 09/22/22 10:25 Pulse Ox 94 09/22/22 10:25 Oxygen Delivery Method Room Air 09/22/22 10:25 BMI result Body Mass Index 25.4 Const General: No confusion Orientation/consciousness: No confusion Limitations: no limitations HEENT Head: Yes normocephalic and Yes atraumatic Ears: hearing grossly normal bilaterally Eyes General: appearance normal, both eyes and all related structures Eyelids: Yes eyelids normal Pupils: Equal, round and reactive pupils present EOM: EOMs intact bilaterally Neck Neck: Yes normal visual inspection and Yes no JVD Resp Effort & Inspection: normal respiratory effort, able to speak in complete sentences and no audible wheezes Cardio Jugular venous distension: no JVD Back/Spine/Pelvis Other: Tenderness on palpation on paraspinal spinal region of the lumbar spine. Loading test is positive. Flexing forward and flexing backwards are painful however flexing backwards is more aggravating than flexing forward. Symmetrical bilateral strength of bilateral lower extremities. Neuro General: No confusion Cranial nerves: Yes Equal, round and reactive pupils present and Yes Normal hearing present Speech: No Abnormal speech present Assessment & Plan Assessment & Plan (1) Osteoarthritis of knees, bilateral: Code(s): M17.0 - Bilateral primary osteoarthritis of knee (2) Spondylosis of lumbar spine: Code(s): M47.816 - Spondylosis without myelopathy or radiculopathy, lumbar region (3) Chronic pain syndrome: Code(s): G89.4 - Chronic pain syndrome Plan Marilyn reports increased pain and decreased results of PNS print. She would like to schedule an appointment with me. I would need to schedule her for the procedure in November. It will be right- sided and 2 weeks after will be left-sided procedure. She is compliant with her opioid regimen her pill count is correct today. She has already the prescription in her pharmacy waiting for her to be picked up on 09/29/2022 Reported CBD oil intake, she reports that helps her with pain a little bit. Coding Level of Care Code Est Pt Level 4 (47821) Diagnoses Osteoarthritis of knees, bilateral M17.0 Spondylosis of lumbar spine M47.816 Chronic pain syndrome G89.4
[2022-09-22 10:25] VITALS: BP 140/78; PULSE 78; O2SAT 94; BMI 25.4
== END 2022-09-22 10:49 | disposition home or self-care (01) ==
PROVIDERS: PCP Internal Medicine; Visit Provider Anesthesiology
DX: M17.0 Bilateral primary osteoarthritis of knee (principal); M47.816 Spondylosis without myelopathy or radiculopathy, lumbar region; G89.4 Chronic pain syndrome; Z79.891 Long term (current) use of opiate analgesic
CPT/HCPCS: 99214

== ENCOUNTER → 2022-09-22 10:07 | Outpatient (BNVA) | payer MEDICARE, SELFPAY | PROVIDERS: PCP Internal Medicine; Visit Provider Anesthesiology | DX: Z51.81 Encounter for therapeutic drug level monitoring (principal); F11.20 Opioid dependence, uncomplicated; M17.0 Bilateral primary osteoarthritis of knee; M47.816 Spondylosis without myelopathy or radiculopathy, lumbar region; G89.4 Chronic pain syndrome | CPT/HCPCS: 99212 ==

== ENCOUNTER 2022-10-20 10:21 | Outpatient (AMB) | payer MEDICARE, SELFPAY ==
--- NOTE | 2022-10-20 10:25 | A.OFFVIS_ITS ---
Intake Vital Signs 10/20/22 10:35 Height 5 ft 2 in Weight 141 lb BMI 25.8 BP 140/72 H Blood Pressure Location Lt brachial Position Sitting Respiration 18 Pulse 75 Pulse Source Pulse Oximeter Pulse Oximetry (%) 96 Oxygen Delivery Method Room Air Intake Visit Reasons: Pill count Intake Note: Patient comes in for pill count to oxycodone. Allergies sulfamethoxazole [From Bactrim] Allergy (Verified 10/20/22 10:35) anaphylaxis trimethoprim [From Bactrim] Allergy (Verified 10/20/22 10:35) anaphylaxis HPI HPI Comments History of Present Illness Details Marilyn is a pleasant 69-year-old female who is treated in my office chronic low back pain. She had good results from bilateral L5 sprint PNS however now she reports that her pain is coming back. She had about 8 months of good pain relief. She is scheduled for the repeat of the procedure on November 05 and November 19 in the operating room. Today she is here for a pill count. She is supposed to have 30 pills in her possession she presented with 34 pills. Her pill count is correct and demonstrates responsible attitude to were the opioid medications. She r still demonstrates responsible attitude to were the opioid medications. Denies any constipation, sedation, nausea, dizziness or urinary retention. She states they have an increased ability to perform activities of daily living, interact socially and be more functional. [facility] Medical History Chronic pain syndrome HTN (hypertension) Hypothyroid Migraine Osteoarthritis of knees, bilateral Patent foramen ovale Spondylosis of lumbar spine Social History Patient Tobacco Use Status: Never used Tobacco Second Hand Smoke Exposure: No Review of Systems Const All systems reviewed & are unremarkable except as noted in HPI and below ENT Reports Normal hearing present Neuro Reports Normal hearing present and Denies Abnormal speech present Physical Exam Vital Signs: Last Vital Signs Pulse 75 10/20/22 10:35 Resp 18 10/20/22 10:35 BP 140/72 H 10/20/22 10:35 Pulse Ox 96 10/20/22 10:35 Oxygen Delivery Method Room Air 10/20/22 10:35 BMI result Body Mass Index 25.8 Const General: cooperative, healthy appearing, comfortable and no acute distress Orientation/consciousness: oriented to person, oriented to place and oriented to time Limitations: no limitations HEENT Head: Yes normocephalic and Yes atraumatic Ears: hearing grossly normal bilaterally Eyes General: appearance normal, both eyes and all related structures Eyelids: Yes eyelids normal Pupils: Equal, round and reactive pupils present EOM: EOMs intact bilaterally Neck Neck: Yes normal visual inspection and Yes no JVD Resp Effort & Inspection: normal respiratory effort, able to speak in complete sentences and no audible wheezes Cardio Jugular venous distension: no JVD GI Inspection: Yes normal to inspection Back/Spine/Pelvis Other: Tenderness on palpation on paraspinal spinal region of the lumbar spine. Loading test is positive. Flexing forward and flexing backwards are painful however flexing backwards is more aggravating than flexing forward. Symmetrical bilateral strength of bilateral lower extremities. Neuro General: oriented to person, oriented to place and oriented to time Cranial nerves: Yes Equal, round and reactive pupils present and Yes Normal hearing present Speech: No Abnormal speech present Results Reviewed Results Reviewed: MRI lumbar spine 08/24/2018.: Upper lumbar dextroscoliosis. Lower worst lumbar like vertebral body is a transitional segment and is being referred to as S1. S1 is to is a transitional intervertebral disc space and there is no significant canal or neural foraminal compromise at S1-S2 level. Lumbar spine is relative anatomic alignment in sagittal plane. Vertebral body heights are well maintained. There is no spondylosis or spondylolisthesis. The conus terminates at L1-L2 and unremarkable in morphology. No evidence of arachnoiditis the feel inter min alley and intradural nerves roots appear within normal limits. L5-S1: There is evidence of previous a LIF procedure at this level with metallic artifact in the intervertebral disc space with extensive type 2 marrow signal changes along the endplates. There is no significant facet arthrosis and there is no significant canal or neural foraminal stenosis. Mild and planed osteophyte noted on the right minimally encroaching on the inferior right neural foraminal is noted. L4-5: Severe disc space narrowing is noted with diffuse intradiscal high T2 signal intensity with extensive Schmorl's nodes for may hansen and endplate marrow edema with enhancement along the endplates within the adjustment bone marrow which could be secondary to type 1 marrow signal changes. This finding could be secondary to severe discogenic degenerative changes but they also can be spondyloarthropathy spondyloarthritis. Infectious decide is osteomyelitis is considered less likely. There is concentric disc osteophyte complex slightly asymmetric to the right with [id number] flattening of the dural sac and there is prominent dural epidural fat pad and ligamentum flavum thickening with moderate right-sided and mild left-sided facet arthrosis. There is jrrb-[id number] central canal stenosis without significant lateral recess stenosis and there is mqzk-[id number]-[id number] bilateral neural foraminal stenosis without neural impingement. There is some marrow edema on both sides of the right L4-L5 facet joints consistent with active facet inflammatory changes. There are small bilateral facet joint effusions. L3-L4 disc space height is mildly narrowed on the left with normal disc signal. There is a mild left paramedial disc protrusion with slight flattening of the left side of the dural sac without significant spondylosis. There is mild facet arthrosis and ligamentum flavum thickening with prominent dorsal epidural fat pad without significant canal or neural foraminal stenosis. L2-L3 disc space height is minimally narrowed on the left with normal disc signal and no significant disc bulge or herniation. No significant spondylosis facet arthrosis canal or neural foraminal stenosis. L1-L2 moderate to severe disc space narrowing is noted with Schmorl's nodes disc desiccation and predominantly type 2 degenerative bone marrow signal changes along the endplates with anterior marginal spondylosis. There is a mild left central to left paramedian disc protrusion with slight flattening of the dural sac on the left. No significant facet arthrosis canal or neural foraminal stenosis. Impression 1. Lumbar dextroscoliosis 2. Status post ALIF procedure at L5-S1 with S1 being transitional level with mild right posterior lateral in plane spurring without significant canal or foraminal compromise. 3. Severe disc space narrowing with intradiscal disc changes extensive Schmorl node formation and reactive marrow edema with enhancement along the endplates at L4-5. Concentric endplate spurring is also noted. These findings can be secondary to spondyloarthritis with severe discogenic degenerative changes and are associated with bilateral facet arthrosis right more than left with probable active inflammatory changes in the right facet joint as detailed above. Mild -to-moderate central canal stenosis and [id number] bilateral neural foraminal stenosis at this level without neural impingement. Suggest clinical follow-up and clinical correlation with inflammatory markers and CBC. Discogenic degenerative changes at L1-L2 with spondylosis and mild left paramedial disc protrusion. Mild left paramedial disc protrusion at L3-L4. Assessment & Plan Assessment & Plan (1) Osteoarthritis of knees, bilateral: Code(s): M17.0 - Bilateral primary osteoarthritis of knee (2) Spondylosis of lumbar spine: Code(s): M47.816 - Spondylosis without myelopathy or radiculopathy, lumbar region (3) Chronic pain syndrome: Code(s): G89.4 - Chronic pain syndrome Plan Marilyn reports increased pain and decreased results of PNS print. She reports that knee pains are mild and opioid medications appear to be helpful with knee pain. She is scheduled for an appointment on November 05 and November 19 for implantation of the spring PNS. She had a good month of pain relief on previous sprint PNS application. She reports currently on oxycodone 5 mg t.i.d.. She demonstrates responsible attitude to were the opioid medications. She is due for her medications on 10/30/2022. There is no sign of possible diversions, opioid abuse, opioid misuse, no signs of the addiction. Reported CBD oil intake, she reports that helps her with pain a little bit. Medications: Refilled oxycodone Partial Fill upon patient request. 5 mg PO TID PRN 90 tabs 0RF pain 30 days Coding Level of Care Code Est Pt Level 4 (14683) Diagnoses Osteoarthritis of knees, bilateral M17.0 Spondylosis of lumbar spine M47.816 Chronic pain syndrome G89.4
[2022-10-20 10:35] VITALS: BP 140/72; PULSE 75; RESP 18; O2SAT 96; BMI 25.8
== END 2022-10-20 10:48 | disposition home or self-care (01) ==
PROVIDERS: PCP Internal Medicine; Visit Provider Anesthesiology
DX: M17.0 Bilateral primary osteoarthritis of knee (principal); M47.816 Spondylosis without myelopathy or radiculopathy, lumbar region; G89.4 Chronic pain syndrome
CPT/HCPCS: 99214

== ENCOUNTER → 2022-10-20 10:21 | Outpatient (BNVA) | payer MEDICARE, SELFPAY | PROVIDERS: PCP Internal Medicine; Visit Provider Anesthesiology | DX: G89.4 Chronic pain syndrome (principal); M17.0 Bilateral primary osteoarthritis of knee; M47.816 Spondylosis without myelopathy or radiculopathy, lumbar region; Z79.891 Long term (current) use of opiate analgesic | CPT/HCPCS: 99212 ==

== ENCOUNTER 2022-11-05 12:06 | Day surgery (SDC) | payer MEDICARE, SELFPAY ==
--- NOTE | ~2022-11-05 | FL_ITS ---
EXAMINATION: XR FLUOROSCOPY WITH IMAGES CLINICAL INFORMATION: Lumbar sprint PNS COMPARISON: None available. TECHNIQUE: Fluoroscopy Supervised By: Dr. Goran Crook. Fluoroscopy Time: 0.1 minute. Cumulative Dose: 2.85 mGy. DAP: 0.487 Gycm2. Images: 1. FINDINGS: On this single image there is a radiopaque instrument projecting over the lower lumbar level in the right. FL/FL guidance in OR IMPRESSION: Fluoroscopic guidance over the lower lumbar spine. Please refer to procedural report for further information.
[2022-11-05 08:47] VITALS: BMI 26.3
[2022-11-05 12:49] VITALS: BP 134/79; PULSE 78; RESP 18; TEMP 36.6; O2SAT 95
--- NOTE | 2022-11-05 13:47 | P.BOP_ITS ---
Brief Operative Note Date of Service: 11/05/22 Pre-op diagnosis: spondylosis lumbar Post-op diagnosis: same Procedure: sprint PNS L5 on the right Implants: 60 days implant of sprint PNS Surgeon: Goran Crook MD Anesthesia: local Was an Patcher [employer]der used for this Procedure?: No Estimated blood loss (mL): 0 Condition: stable Disposition: PACU
--- NOTE | 2022-11-05 13:47 | W.PM.OPN ---
Operative Note Operative Note Date of Service: 11/05/22 Narrative: Percutaneous implantation of peripheral nerve stimulation Sprint system L5 right side. After the risks, benefits and alternatives were discussed with the patient and informed consent was obtained, patient was placed in the prone position and padded to foster comfort. Time out was performed delineating correct site and side of the procedure , name and of the patient, patient participated in time out procedure. Sterily draped C-arm was brought over the operating field and clear picture of the L5 lamina on the right was delineated on the screen. The upper central portion of the lamina was chosen as a target of the needle tip insertion . After identifying and marking the intended target, the skin around the planned entry point and the subcutaneous tissues were injected with local anesthetic forming skin wheal.. A percutaneous sleeve and stimulating probe lead introduction system were assembled, inserted and advanced through the skin wheal to the point of interest under C-arm view [id number] lamina., the introducer needle was delivered to a location in proximity to the nerve. Multiple stimulation parameters were used to deliver stimulation to the nerve in concert with stimulating at multiple positions around the nerve. The nerve target acquisition was confirmed noting generation of in the corresponding to the nerve being stimulated. Various electrical parameter combinations were tested, and the lead location was adjusted (physically relocated) until the patient indicated overlapping the distribution of the patient?s typical region of pain. The stimulating probe was removed from the introducer and a percutaneous lead was guided through the needle and delivered to a location in similar proximity to the nerve. Final location was verified with electrical stimulation. The introducer needle was removed, and the exposed end of the percutaneous lead was attached to an external stimulator unit. At the end of the case various electrical parameter combinations were again tested until the patient indicated paresthesia or muscle tension overlapping the distribution of the patient?s typical region of pain. After confirming that lead impedance was in the normal range, the external unit was detached, the needle was removed, and the lead was anchored at the skin. The lead was threaded into the connector block and electrical continuity and desired patient response was confirmed. The connector block was attached to the external stimulator unit. The site was covered with a sterile occlusive dressing and a image was taken to document final placement. Upon completion of the procedure the patient was taken outside the OR where she recovered uneventfully she went home without immediate complications.
[2022-11-05 13:52] VITALS: BP 123/59; PULSE 77; RESP 16; TEMP 36.9; O2SAT 97
== END 2022-11-05 14:11 | disposition home or self-care (01) ==
PROVIDERS: PCP Internal Medicine; Visit Provider Anesthesiology
PROC: (CPT 64555; principal; 2022-11-05 13:40)
DX: M47.816 Spondylosis without myelopathy or radiculopathy, lumbar region (principal); G89.4 Chronic pain syndrome; M17.0 Bilateral primary osteoarthritis of knee; M54.50 Low back pain, unspecified; I10 Essential (primary) hypertension; Q21.12 Patent foramen ovale; Z98.890 Other specified postprocedural states; Z88.2 Allergy status to sulfonamides
CPT/HCPCS: 64555; C1778

== ENCOUNTER → 2022-11-05 12:06 | Outpatient (BNV) | payer MEDICARE, SELFPAY | PROVIDERS: PCP Internal Medicine; Visit Provider Anesthesiology | DX: M47.816 Spondylosis without myelopathy or radiculopathy, lumbar region (principal) | CPT/HCPCS: 64555 ==

== ENCOUNTER 2022-11-10 09:33 | Outpatient (AMB) | payer MEDICARE, SELFPAY ==
--- NOTE | 2022-11-10 09:54 | MHC.OFFVIS ---
Intake Vital Signs 11/10/22 10:08 Height 5 ft 2 in Weight 139 lb 8 oz BMI 25.5 BP 140/72 H Blood Pressure Location Lt brachial Position Sitting Respiration 18 Pulse 75 Pulse Source Pulse Oximeter Pulse Oximetry (%) 94 Oxygen Delivery Method Room Air Intake Visit Reasons: S/p RIGHT L5 PNS Sprint 11/05/22 Intake Note: Site was cleared no redness/drainage/swelling at site. Site cleaned with alcohol prep pad, and new dsd/tegaderm applied. Allergies sulfamethoxazole [From Bactrim] Allergy (Verified 11/10/22 10:06) anaphylaxis trimethoprim [From Bactrim] Allergy (Verified 11/10/22 10:06) anaphylaxis HPI HPI Comments History of Present Illness Details Marilyn is a pleasant 69-year-old female who is treated in my office chronic low back pain. She had good results 8 months from bilateral L5 sprint PNS however now she reports that her pain is coming back. She went for right-sided implantation of the sprint PNS 2nd time around, she reports already pain improvement, her pain is 4/10. She is going for left-sided procedure on 11/19/2022. We will organized her pill count around that time as a nursing visit in the office. [facility] Medical History (Updated 11/05/22 @ 12:58 by Zulay Raygoza RN) Chronic pain syndrome Finger pain, left HTN (hypertension) Hypothyroid Migraine Osteoarthritis of knees, bilateral Patent foramen ovale Spondylosis of lumbar spine Surgical History (Updated 11/05/22 @ 12:58 by Zulay Raygoza RN) History of back surgery Hx laparoscopic cholecystectomy Hx of section Social History Patient Tobacco Use Status: Never used Tobacco Second Hand Smoke Exposure: No Review of Systems Const All systems reviewed & are unremarkable except as noted in HPI and below ENT Reports Normal hearing present Neuro Reports Normal hearing present and Denies Abnormal speech present Physical Exam Const General: cooperative, healthy appearing, comfortable and no acute distress Orientation/consciousness: oriented to person, oriented to place and oriented to time Limitations: no limitations HEENT Head: Yes normocephalic and Yes atraumatic Ears: hearing grossly normal bilaterally Eyes General: appearance normal, both eyes and all related structures Eyelids: Yes eyelids normal Pupils: Equal, round and reactive pupils present EOM: EOMs intact bilaterally Neck Neck: Yes normal visual inspection and Yes no JVD Resp Effort & Inspection: normal respiratory effort, able to speak in complete sentences and no audible wheezes Cardio Jugular venous distension: no JVD GI Inspection: Yes normal to inspection Back/Spine/Pelvis Other: Tenderness on palpation on paraspinal spinal region of the lumbar spine. Loading test is positive. Flexing forward and flexing backwards are painful however flexing backwards is more aggravating than flexing forward. Symmetrical bilateral strength of bilateral lower extremities. Neuro General: oriented to person, oriented to place and oriented to time Cranial nerves: Yes Equal, round and reactive pupils present and Yes Normal hearing present Speech: No Abnormal speech present Assessment & Plan Assessment & Plan (1) Osteoarthritis of knees, bilateral: Code(s): M17.0 - Bilateral primary osteoarthritis of knee (2) Spondylosis of lumbar spine: Code(s): M47.816 - Spondylosis without myelopathy or radiculopathy, lumbar region (3) Chronic pain syndrome: Code(s): G89.4 - Chronic pain syndrome Plan She is doing okay after right PNS insertion 2nd time around. The dressing was changed today. The insertion site is clean no pathological discharge and no redness, no swelling. She is scheduled for left-sided PNS insertion 11/19/2022. Nursing pill count on the same very day. Coding Level of Care Code Est Pt Level 3 (40226) Diagnoses Osteoarthritis of knees, bilateral M17.0 Spondylosis of lumbar spine M47.816 Chronic pain syndrome G89.4
[2022-11-10 10:08] VITALS: BP 140/72; PULSE 75; RESP 18; O2SAT 94; BMI 25.5
== END 2022-11-10 10:09 | disposition home or self-care (01) ==
PROVIDERS: PCP Internal Medicine; Visit Provider Anesthesiology
DX: M17.0 Bilateral primary osteoarthritis of knee (principal); M47.816 Spondylosis without myelopathy or radiculopathy, lumbar region; G89.4 Chronic pain syndrome
CPT/HCPCS: 99024

== ENCOUNTER → 2022-11-10 09:33 | Outpatient (BNVA) | payer MEDICARE, SELFPAY | PROVIDERS: PCP Internal Medicine; Visit Provider Anesthesiology | DX: G89.4 Chronic pain syndrome (principal); M17.0 Bilateral primary osteoarthritis of knee; M47.816 Spondylosis without myelopathy or radiculopathy, lumbar region; Z98.890 Other specified postprocedural states | CPT/HCPCS: 99212 ==

== ENCOUNTER 2022-11-19 11:32 | Day surgery (SDC) | payer MEDICARE, SELFPAY ==
--- NOTE | ~2022-11-19 | FL_ITS ---
EXAMINATION: XR FLUOROSCOPY WITH IMAGES CLINICAL INFORMATION: L5 medial branch SPRINT, left. COMPARISON: None available. TECHNIQUE: Fluoroscopy Supervised By: Dr. Goran Crook. Fluoroscopy Time: 0.1 minute. Cumulative Dose: 5.50 mGy. DAP: 0.684 Gycm2. Images: 2. FINDINGS: 2 views of the lower lumbar spine are submitted. One image demonstrates a surgical instrument projecting over the left lower lumbar spine FL/FL guidance in OR IMPRESSION: Fluoroscopy guidance for pain management procedure.
[2022-11-19 12:41] VITALS: BMI 24.7
--- NOTE | 2022-11-19 13:17 | MHC.SHP ---
Pre-Procedural Eval Section A Date of Service: 11/19/22 The patient is an INPATIENT: No Changes since office visit: Yes Patient answered all questions The History & Physical has been completed within 30 days and I have reviewed it.: No Section B Chief Complaint: Spondylosis without myelopathy or radiculopathy, Details of Present Illness: Spondylosis without myelo or radiculopathy Relevant Family History (Specify if Yes): No Relevant Social History: None Present Medications: None Medical History: No relevant PMH History of Previous Operations: No relevant previous surgery Allergies: Allergies Allergy/AdvReac Type Severity Reaction Status Date / Time sulfamethoxazole Allergy anaphylaxis Verified 11/10/22 10:06 [From Bactrim] trimethoprim [From Bactrim] Allergy anaphylaxis Verified 11/10/22 10:06 Review of Systems Sugical H&P ROS: Negative: Constitution, Cardiovascular, Respiratory, Neurological, Psychiatric, Hem-Onc, Allergic/Immunologic, Gastrointestinal, Genitourinary, Musculoskeletal, Integumentary, Endocrine and Eyes/Ears/Nose/Throat Exam Surgical H&P Exam: Normal: HEENT, Normal: Heart, Normal: Lungs, Normal: Extremities, Normal: Abdomen, Normal: Skin and Normal: Neurological Plan Diagnosis/Plan: Unchanged I have reviewed the history and physical and performed a pertinent physical examination on my patient. No changes have occurred unless specified. Time Spent With Patient Time: Total time managing care of this patient today ____ minutes.
--- NOTE | 2022-11-19 13:21 | P.BOP_ITS ---
Brief Operative Note Date of Service: 11/19/22 Pre-op diagnosis: spondylosis lumbar Post-op diagnosis: same Procedure: sprint PNS L5 on the left Implants: 60 days implant of sprint PNS Surgeon: Goran Crook MD Anesthesia: local Was an Elementary Teacher used for this Procedure?: No Estimated blood loss (mL): 0 Condition: stable Disposition: PACU
--- NOTE | 2022-11-19 13:25 | W.PM.OPN ---
Operative Note Operative Note Date of Service: 11/19/22 Narrative: Percutaneous implantation of peripheral nerve stimulation Sprint system L5 left side. After the risks, benefits and alternatives were discussed with the patient and informed consent was obtained, patient was placed in the prone position and padded to foster comfort. Time out was performed delineating correct site and side of the procedure , name and of the patient, patient participated in time out procedure. Sterily draped C-arm was brought over the operating field and clear picture of the L5 lamina on the left was delineated on the screen. The upper central portion of the lamina was chosen as a target of the needle tip insertion . After identifying and marking the intended target, the skin around the planned entry point and the subcutaneous tissues were injected with local anesthetic forming skin wheal.. A percutaneous sleeve and stimulating probe lead introduction system were assembled, inserted and advanced through the skin wheal to the point of interest under C-arm view L5 left lamina., the introducer needle was delivered to a location in proximity to the nerve. Multiple stimulation parameters were used to deliver stimulation to the nerve in concert with stimulating at multiple positions around the nerve. The nerve target acquisition was confirmed noting generation of in the corresponding to the nerve being stimulated. Various electrical parameter combinations were tested, and the lead location was adjusted (physically relocated) until the patient indicated overlapping the distribution of the patient?s typical region of pain. The stimulating probe was removed from the introducer and a percutaneous lead was guided through the needle and delivered to a location in similar proximity to the nerve. Final location was verified with electrical stimulation. The introducer needle was removed, and the exposed end of the percutaneous lead was attached to an external stimulator unit. At the end of the case various electrical parameter combinations were again tested until the patient indicated paresthesia or muscle tension overlapping the distribution of the patient?s typical region of pain. After confirming that lead impedance was in the normal range, the external unit was detached, the needle was removed, and the lead was anchored at the skin. The lead was threaded into the connector block and electrical continuity and desired patient response was confirmed. The connector block was attached to the external stimulator unit. The site was covered with a sterile occlusive dressing and a image was taken to document final placement. Upon completion of the procedure the patient was taken outside the OR where she recovered uneventfully she went home without immediate complications.
[2022-11-19 14:05] VITALS: BP 127/72; PULSE 68; RESP 20; TEMP 36.8; O2SAT 97
== END 2022-11-19 14:35 | disposition home or self-care (01) ==
PROVIDERS: PCP Internal Medicine; Visit Provider Anesthesiology
PROC: (CPT 64555; principal; 2022-11-19 13:20)
DX: M47.816 Spondylosis without myelopathy or radiculopathy, lumbar region (principal); G89.4 Chronic pain syndrome; I10 Essential (primary) hypertension; M54.50 Low back pain, unspecified; M17.0 Bilateral primary osteoarthritis of knee; G43.909 Migraine, unspecified, not intractable, without status migrainosus; E03.9 Hypothyroidism, unspecified; Q21.12 Patent foramen ovale; Z98.890 Other specified postprocedural states; Z88.2 Allergy status to sulfonamides
CPT/HCPCS: 64555; C1778; J2795

== ENCOUNTER → 2022-11-19 11:32 | Outpatient (BNV) | payer MEDICARE, SELFPAY | PROVIDERS: PCP Internal Medicine; Visit Provider Anesthesiology | DX: M47.816 Spondylosis without myelopathy or radiculopathy, lumbar region (principal) | CPT/HCPCS: 64555 ==

== ENCOUNTER 2022-11-25 09:40 | Outpatient (AMB) | payer MEDICARE, SELFPAY ==
--- NOTE | 2022-11-25 09:56 | A.OFFVIS_ITS ---
Intake Vital Signs 11/25/22 10:24 Height 5 ft 2 in Weight 141 lb BMI 25.8 BP 133/68 Blood Pressure Location Rt brachial Position Sitting Respiration 16 Pulse 65 Pulse Source Pulse Oximeter Pulse Oximetry (%) 97 Oxygen Delivery Method Room Air Intake Visit Reasons: S/p LEFT L5 PNS Sprint 11/19/22/Confirmed Intake Note: patient comes for post-op appointment. Site was cleared no redness/drainage/swelling at site. Site cleaned with alcohol prep pad, and new dsd/tegaderm applied. I notice right sided lead was a little longer than the left side. patient still feels stimulation, has setting set to 60. Allergies sulfamethoxazole [From Bactrim] Allergy (Verified 12/17/22 10:14) anaphylaxis trimethoprim [From Bactrim] Allergy (Verified 12/17/22 10:14) anaphylaxis HPI HPI Comments History of Present Illness Details Marilyn is a pleasant 69-year-old female who is treated in my office chronic low back pain. She is here today for dressing change for bilateral PNS print. She reports good stimulation from bilateral wires. She reports better mobility and better activities of daily living. She observes a mobility limitations related to the procedure. This is her 2nd sprint PNS insertion. She has someone at home who will be able to change her dressings in the future. Her right lead appears to be slightly longer than the left 1 however she feel stimulation on both sides appropriately. She is here today for the follow-up her last pill count was performed in the operating room and the pills will be sent to her pharmacy today as below. She had good results 8 months from bilateral L5 sprint PNS however now she reports that her pain is coming back. She went for right-sided implantation of the sprint PNS 2nd time around, she reports already pain improvement, her pain is 4/10. She is going for left-sided procedure on 11/19/2022. [facility] Medical History (Updated 11/05/22 @ 12:58 by Zulya Raygoza RN) Finger pain, left Patent foramen ovale Migraine Hypothyroid HTN (hypertension) Chronic pain syndrome Spondylosis of lumbar spine Osteoarthritis of knees, bilateral Surgical History (Updated 11/05/22 @ 12:58 by Zulay Raygoza RN) History of back surgery Hx of section Hx laparoscopic cholecystectomy Social History Patient Tobacco Use Status: Never used Tobacco Second Hand Smoke Exposure: No Review of Systems Const All systems reviewed & are unremarkable except as noted in HPI and below ENT Reports Normal hearing present Neuro Reports Normal hearing present and Denies Abnormal speech present Physical Exam Vital Signs: Last Vital Signs Pulse 65 11/25/22 10:24 Resp 16 11/25/22 10:24 BP 133/68 11/25/22 10:24 Pulse Ox 97 11/25/22 10:24 Oxygen Delivery Method Room Air 11/25/22 10:24 BMI result Body Mass Index 25.8 Const General: cooperative, healthy appearing, comfortable and no acute distress Orientation/consciousness: oriented to person, oriented to place and oriented to time Limitations: no limitations HEENT Head: Yes normocephalic and Yes atraumatic Ears: hearing grossly normal bilaterally Eyes General: appearance normal, both eyes and all related structures Eyelids: Yes eyelids normal Pupils: Equal, round and reactive pupils present EOM: EOMs intact bilaterally Neck Neck: Yes normal visual inspection and Yes no JVD Resp Effort & Inspection: normal respiratory effort, able to speak in complete se ntences and no audible wheezes Cardio Jugular venous distension: no JVD GI Inspection: Yes normal to inspection Back/Spine/Pelvis Other: Tenderness on palpation on paraspinal spinal region of the lumbar spine. Loading test is positive. Flexing forward and flexing backwards are painful however flexing backwards is more aggravating than flexing forward. Symmetrical bilateral strength of bilateral lower extremities. Neuro General: oriented to person, oriented to place and oriented to time Cranial nerves: Yes Equal, round and reactive pupils present and Yes Normal hearing present Speech: No Abnormal speech present Assessment & Plan Assessment & Plan (1) Osteoarthritis of knees, bilateral: Code(s): M17.0 - Bilateral primary osteoarthritis of knee (2) Spondylosis of lumbar spine: Code(s): M47.816 - Spondylosis without myelopathy or radiculopathy, lumbar region (3) Chronic pain syndrome: Code(s): G89.4 - Chronic pain syndrome Plan She is doing okay after right PNS insertion 2nd time around. The dressing was changed today. The insertion site is clean no pathological discharge and no redness, no swelling. Right-sided cable is slightly longer than the left 1 but she feels stimulation bilaterally. Next dressing changes at home. She will continue for next 6 weeks with PNS. After that it will be removed. Next appointment in December 19 or before for her next pill count.. The medication was sent to her pharmacy to be filled on 12/01/2022. Medications: New oxycodone Partial Fill upon patient request. 5 mg PO TID PRN 90 tabs 0RF pain 30 days Coding Level of Care Code Est Pt Level 3 (26632) Diagnoses Osteoarthritis of knees, bilateral M17.0 Spondylosis of lumbar spine M47.816 Chronic pain syndrome G89.4
[2022-11-25 10:24] VITALS: BP 133/68; PULSE 65; RESP 16; O2SAT 97; BMI 25.8
== END 2022-11-25 10:16 | disposition home or self-care (01) ==
PROVIDERS: PCP Internal Medicine; Visit Provider Anesthesiology
DX: G89.4 Chronic pain syndrome (principal); M47.816 Spondylosis without myelopathy or radiculopathy, lumbar region; Z96.82 Presence of neurostimulator
CPT/HCPCS: 99024

== ENCOUNTER → 2022-11-25 09:40 | Outpatient (BNVA) | payer MEDICARE, SELFPAY | PROVIDERS: PCP Internal Medicine; Visit Provider Anesthesiology | DX: M17.0 Bilateral primary osteoarthritis of knee (principal); M47.816 Spondylosis without myelopathy or radiculopathy, lumbar region; G89.4 Chronic pain syndrome | CPT/HCPCS: 99212 ==

== ENCOUNTER 2022-12-17 10:04 | Outpatient (AMB) | payer MEDICARE, SELFPAY ==
[2022-12-17 10:14] VITALS: BP 148/73; PULSE 80; RESP 16; O2SAT 97; BMI 25.7
--- NOTE | 2022-12-17 10:14 | MHC.OFFVIS ---
Intake Vital Signs 12/17/22 10:14 Height 5 ft 2 in Weight 140 lb 8 oz BMI 25.7 BP 148/73 H Blood Pressure Location Lt brachial Position Left Lateral Respiration 16 Pulse 80 Pulse Source Pulse Oximeter Pulse Oximetry (%) 97 Oxygen Delivery Method Room Air Intake Visit Reasons: Medication Count/random UDS Allergies sulfamethoxazole [From Bactrim] Allergy (Verified 12/17/22 10:14) anaphylaxis trimethoprim [From Bactrim] Allergy (Verified 12/17/22 10:14) anaphylaxis HPI HPI Comments History of Present Illness Details Marilyn is a very pleasant 71 year old female who presents to the office for follow up chronic pain and chronic opioid therapy management. Patient is prescribed Oxycodone 5mg po TID PRN. Patient arrived today with the expectation of having 42 pills, she presented 52 pills which were counted in the presence of two staff members and returned to the patient in the original prescription bottle. This demonstrates responsible attitude toward patient's opioid medications. Pain is reported today as 3/10 and last dose of pain medication was taken at 08:00 this morning. Pain is adequately managed on current opioid regimen. Patient denies any recent changes or exacerbations of chronic back pain and states she is able to engage in activities of daily living with minimal interruption due to chronic pain. Patient denies side effects including somnolence, constipation, itching, dyspnea, rash, dizziness or weakness. Patient was given req for random UDS today. Patient s/p Bilateral L5 PNS Sprint, she reports improvement in her pain, mobility and function with Sprint. She is able to titrate the stimulation and perform dressing changes without difficulty. Prior: Marilyn is a pleasant 69-year-old female who is treated in my office chronic low back pain. She is here today for dressing change for bilateral PNS print. She reports good stimulation from bilateral wires. She reports better mobility and better activities of daily living. She observes a mobility limitations related to the procedure. This is her 2nd sprint PNS insertion. She has someone at home who will be able to change her dressings in the future. Her right lead appears to be slightly longer than the left 1 however she feel stimulation on both sides appropriately. She is here today for the follow-up her last pill count was performed in the operating room and the pills will be sent to her pharmacy today as below. She had good results 8 months from bilateral L5 sprint PNS however now she reports that her pain is coming back. She went for right-sided implantation of the sprint PNS 2nd time around, she reports already pain improvement, her pain is 4/10. She is going for left-sided procedure on 11/19/2022. 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, bilateral Surgical History (Updated 11/05/22 @ 12:58 by Zulay Raygoza RN) History of back surgery Hx of section Hx laparoscopic cholecystectomy Social History Patient Tobacco Use Status: Never used Tobacco Second Hand Smoke Exposure: No Review of Systems Const All systems reviewed & are unremarkable except as noted in HPI and below Physical Exam Vital Signs: Last Vital Signs Pulse 80 12/17/22 10:14 Resp 16 12/17/22 10:14 BP 148/73 H 12/17/22 10:14 Pulse Ox 97 12/17/22 10:14 Oxygen Delivery Method Room Air 12/17/22 10:14 BMI result Body Mass Index 25.7 General: awake, alert, oriented. Answers questions appropriately. Fully engaged in examination. Skin: warm, dry, intact HEENT: Normocephalic. Hearing intact. Cardiac: External chest normal in appearance. Respiratory: No cough, audible wheezing or stridor. Abdomen: without gross distension. MS: No obvious swelling or deformities. Able to transition from sit to stand unassisted. Ambulates with bilaterally normal heel strike and toe off Neurological: Oriented to person, place, time and situation. Thought process intact. No gait abnormalities appreciated. Psychiatric: Appropriate mood and affect. Good judgment and insight. Assessment & Plan Assessment & Plan (1) Osteoarthritis of knees, bilateral: Code(s): M17.0 - Bilateral primary osteoarthritis of knee (2) Spondylosis of lumbar spine: Code(s): M47.816 - Spondylosis without myelopathy or radiculopathy, lumbar region (3) Chronic pain syndrome: Code(s): G89.4 - Chronic pain syndrome [facility]. No obvious signs of diversion, abuse or misuse of the opioid medications. Will send in prescription for Oxycodone 5mg po TID with an advanced date of 12/31/2022. Req provided for random uds, patient advised to complete after visit. Patient to follow-up in the office as scheduled for Sprint removal, sooner if needed. All questions and concerns have been answered and patient agrees with the plan. Medications: Refilled oxycodone Partial Fill upon patient request. 5 mg PO TID 30 days PRN 90 tabs 0RF pain Coding Level of Care Code Est Pt Level 3 (30400) Diagnoses Osteoarthritis of knees, bilateral M17.0 Spondylosis of lumbar spine M47.816 Chronic pain syndrome G89.4
== END 2022-12-17 10:19 | disposition home or self-care (01) ==
PROVIDERS: PCP Internal Medicine; Visit Provider Registered Nurse Emergency
DX: G89.4 Chronic pain syndrome (principal); M17.0 Bilateral primary osteoarthritis of knee; M47.816 Spondylosis without myelopathy or radiculopathy, lumbar region
CPT/HCPCS: 99213

== ENCOUNTER → 2022-12-17 10:04 | Outpatient (BNVA) | payer MEDICARE, SELFPAY | PROVIDERS: PCP Internal Medicine; Visit Provider Registered Nurse Emergency | DX: Z51.81 Encounter for therapeutic drug level monitoring (principal); F11.20 Opioid dependence, uncomplicated; M17.0 Bilateral primary osteoarthritis of knee; M47.816 Spondylosis without myelopathy or radiculopathy, lumbar region; G89.4 Chronic pain syndrome | CPT/HCPCS: 99212 ==

== ENCOUNTER → 2022-12-23 08:54 | Outpatient (BNVA) | payer MEDICARE, SELFPAY | PROVIDERS: PCP Internal Medicine; Visit Provider Anesthesiology ==

== ENCOUNTER 2023-01-03 09:31 | Outpatient (AMB) | payer MEDICARE, SELFPAY ==
--- NOTE | 2023-01-03 09:35 | A.OFFVIS_ITS ---
Intake Vital Signs 01/03/23 09:45 Height 5 ft 2 in Weight 140 lb BMI 25.6 BP 138/72 Blood Pressure Location Rt brachial Position Sitting Respiration 16 Pulse 94 Pulse Source Pulse Oximeter Pulse Oximetry (%) 97 Oxygen Delivery Method Room Air Intake Visit Reasons: 60 Day Sprint REMOVAL (RIGHT)/CONFIRMED Allergies sulfamethoxazole [From Bactrim] Allergy (Verified 01/03/23 09:46) anaphylaxis trimethoprim [From Bactrim] Allergy (Verified 01/03/23 09:46) anaphylaxis HPI HPI Comments History of Present Illness Details Marilyn is a very pleasant 71 year old female who presents to the office for follow up chronic pain and chronic opioid therapy management. Patient s/p Bilateral L5 PNS Sprint, she reports improvement in her pain, mobility and function with Sprint. She is able to titrate the stimulation and perform dressing changes without difficulty. She is here today to remove the stimulating leads. She reports her pain 3/10. She reports better mobility better activities of daily living better social interactions. Next appointment for pill count is on 01/19/2023. The relating leads and the dressings were removed without complications. No evidence of infection, no drainage, no redness, no swelling. Prior: Marilyn is a pleasant 69-year-old female who is treated in my office chronic low back pain. She is here today for dressing change for bilateral PNS print. She reports good stimulation from bilateral wires. She reports better mobility and better activities of daily living. She observes a mobility limitations related to the procedure. This is her 2nd sprint PNS insertion. She has someone at home who will be able to change her dressings in the future. Her right lead appears to be slightly longer than the left 1 however she feel stimulation on both sides appropriately. She is here today for the follow-up her last pill count was performed in the operating room and the pills will be sent to her pharmacy today as below. She had good results 8 months from bilateral L5 sprint PNS however now she reports that her pain is coming back. She went for right-sided implantation of the sprint PNS 2nd time around, she reports already pain improvement, her pain i s 4/10. She is going for left-sided procedure on 11/19/2022. 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, bilateral Surgical History (Updated 11/05/22 @ 12:58 by Zulay Raygoza RN) History of back surgery Hx of section Hx laparoscopic cholecystectomy Social History Patient Tobacco Use Status: Never used Tobacco Second Hand Smoke Exposure: No Review of Systems Const All systems reviewed & are unremarkable except as noted in HPI and below ENT Reports Normal hearing present Neuro Reports Normal hearing present and Denies Abnormal speech present Physical Exam Vital Signs: Last Vital Signs Pulse 94 01/03/23 09:45 Resp 16 01/03/23 09:45 BP 138/72 01/03/23 09:45 Pulse Ox 97 01/03/23 09:45 Oxygen Delivery Method Room Air 01/03/23 09:45 BMI result Body Mass Index 25.6 Const General: cooperative, healthy appearing, comfortable and no acute distress Orientation/consciousness: oriented to person, oriented to place and oriented to time Limitations: no limitations HEENT Head: Yes normocephalic and Yes atraumatic Ears: hearing grossly normal bilaterally Eyes General: appearance normal, both eyes and all related structures Eyelids: Yes eyelids normal Pupils: Equal, round and reactive pupils present EOM: EOMs intact bilaterally Neck Neck: Yes normal visual inspection and Yes no JVD Resp Effort & Inspection: normal respiratory effort, able to speak in complete sentences and no audible wheezes Cardio Jugular venous distension: no JVD GI Inspection: Yes normal to inspection Back/Spine/Pelvis Other: Tenderness on palpation on paraspinal spinal region of the lumbar spine. Loading test is positive. Flexing forward and flexing backwards are painful however flexing backwards is more aggravating than flexing forward. Symmetrical bilateral strength of bilateral lower extremities. Neuro General: oriented to person, oriented to place and oriented to time Cranial nerves: Yes Equal, round and reactive pupils present and Yes Normal hearing present Speech: No Abnormal speech present Assessment & Plan Assessment & Plan (1) Osteoarthritis of knees, bilateral: Code(s): M17.0 - Bilateral primary osteoarthritis of knee (2) Spondylosis of lumbar spine: Code(s): M47.816 - Spondylosis without myelopathy or radiculopathy, lumbar region (3) Chronic pain syndrome: Code(s): G89.4 - Chronic pain syndrome Plan Good results of spleen PNS 2nd time around. Patient enjoys low level of pain. She reports pain is 3/10 today peer Next pill count 01/19/2023. Appointment after that in 1 month. Coding Level of Care Code Est Pt Level 3 (87774) Diagnoses Osteoarthritis of knees, bilateral M17.0 Spondylosis of lumbar spine M47.816 Chronic pain syndrome G89.4
[2023-01-03 09:45] VITALS: BP 138/72; PULSE 94; RESP 16; O2SAT 97; BMI 25.6
== END 2023-01-03 10:02 | disposition home or self-care (01) ==
PROVIDERS: PCP Internal Medicine; Visit Provider Anesthesiology
DX: G89.4 Chronic pain syndrome (principal); M17.0 Bilateral primary osteoarthritis of knee; M47.816 Spondylosis without myelopathy or radiculopathy, lumbar region
CPT/HCPCS: 64585

== ENCOUNTER → 2023-01-03 09:31 | Outpatient (BNVA) | payer MEDICARE, SELFPAY | PROVIDERS: PCP Internal Medicine; Visit Provider Anesthesiology | DX: M17.0 Bilateral primary osteoarthritis of knee (principal); G89.4 Chronic pain syndrome; M47.816 Spondylosis without myelopathy or radiculopathy, lumbar region | CPT/HCPCS: 64585 ==

== ENCOUNTER → 2023-01-19 09:35 | Outpatient (BNVA) | payer MEDICARE, SELFPAY | PROVIDERS: PCP Internal Medicine; Visit Provider Anesthesiology | DX: Z51.81 Encounter for therapeutic drug level monitoring (principal); F11.20 Opioid dependence, uncomplicated | CPT/HCPCS: 99211 ==

== ENCOUNTER 2023-02-16 09:55 | Outpatient (AMB) | payer MEDICARE, SELFPAY ==
--- NOTE | 2023-02-16 10:18 | MHC.OFFVIS ---
Intake Vital Signs 02/16/23 10:19 Height 5 ft 2 in Weight 141 lb 2 oz BMI 25.8 BP 144/70 H Blood Pressure Location Lt brachial Position Sitting Respiration 16 Pulse 88 Pulse Source Pulse Oximeter Pulse Oximetry (%) 95 Oxygen Delivery Method Room Air Intake Visit Reasons: Medication Count/confirmed Intake Note: Patient comes in for pill count to Oxycodone 5 mg tablets. She reports pain level of 3/10. Allergies sulfamethoxazole [From Bactrim] Allergy (Verified 02/16/23 10:18) anaphylaxis trimethoprim [From Bactrim] Allergy (Verified 02/16/23 10:18) anaphylaxis HPI HPI Comments History of Present Illness Details Marilyn is a very pleasant 71 year old female who presents to the office for follow up chronic pain and chronic opioid therapy management. Patient is prescribed Oxycodone 5mg po TID PRN. Patient arrived today with the expectation of having 42 pills, she presented 55 pills which were counted in the presence of two staff members and returned to the patient in the original prescription bottle. This demonstrates responsible attitude toward patient's opioid medications. Pain is reported today as 3/10 and last dose of pain medication was taken at 07:30 this morning. Pain is adequately managed on current opioid regimen. Patient denies any recent changes or exacerbations of chronic back pain and states she is able to engage in activities of daily living with minimal interruption due to chronic pain. Patient denies side effects including somnolence, constipation, itching, dyspnea, rash, dizziness or weakness. Patient had recent L5 Sprint PNS, was removed last month. She reports continued improvement in her pain since device removal. Prior visit with Dr Crook: Marilyn is a very pleasant 71 year old female who presents to the office for follow up chronic pain and chronic opioid therapy management. Patient s/p Bilateral L5 PNS Sprint, she reports improvement in her pain, mobility and function with Sprint. She is able to titrate the stimulation and perform dressing changes without difficulty. She is here today to remove the stimulating leads. She reports her pain 3/10. She reports better mobility better activities of daily living better social interactions. Next appointment for pill count is on 01/19/2023. The relating leads and the dressings were removed without complications. No evidence of infection, no drainage, no redness, no swelling. Prior: Marilyn is a pleasant 69-year-old female who is treated in my office chronic low back pain. She is here today for dressing change for bilateral PNS print. She reports good stimulation from bilateral wires. She reports better mobility and better activities of daily living. She observes a mobility limitations related to the procedure. This is her 2nd sprint PNS insertion. She has someone at home who will be able to change her dressings in the future. Her right lead appears to be slightly longer than the left 1 however she feel stimulation on both sides appropriately. She is here today for the follow-up her last pill count was performed in the operating room and the pills will be sent to her pharmacy today as below. She had good results 8 months from bilateral L5 sprint PNS however now she reports that her pain is coming back. She went for right-sided implantation of the sprint PNS 2nd time around, she reports already pain improvement, her pain is 4/10. She is going for left-sided procedure on 11/19/2022. [facility] Medical History (Updated 11/05/22 @ 12:58 by Zulay Raygoza RN) Finger pain, left Patent foramen ovale Migraine Hypothyroid HTN (hypertension) Chronic pain syndrome Spondylosis of lumbar spine Osteoarthritis of knees, bilateral Surgical History (Updated 11/05/22 @ 12:58 by Zulay Raygoza RN) History of back surgery Hx of section Hx laparoscopic cholecystectomy Social History Patient Tobacco Use Status: Never used Tobacco Second Hand Smoke Exposure: No Review of Systems Const All systems reviewed & are unremarkable except as noted in HPI and below Physical Exam Vital Signs: Last Vital Signs Pulse 88 02/16/23 10:19 Resp 16 02/16/23 10:19 BP 144/70 H 02/16/23 10:19 Pulse Ox 95 02/16/23 10:19 Oxygen Delivery Method Room Air 02/16/23 10:19 BMI result Body Mass Index 25.8 General: awake, alert, oriented. Answers questions appropriately. Fully engaged in examination. Skin: warm, dry, intact HEENT: Normocephalic. Hearing intact. Cardiac: External chest normal in appearance. Respiratory: No cough, audible wheezing or stridor. Abdomen: without gross distension. MS: No obvious swelling or deformities. Able to transition from sit to stand unassisted. Ambulates with bilaterally normal heel strike and toe off Neurological: Oriented to person, place, time and situation. Thought process intact. No gait abnormalities appreciated. Psychiatric: Appropriate mood and affect. Good judgment and insight. Assessment & Plan Assessment & Plan (1) Osteoarthritis of knees, bilateral: Code(s): M17.0 - Bilateral primary osteoarthritis of knee (2) Spondylosis of lumbar spine: Code(s): M47.816 - Spondylosis without myelopathy or radiculopathy, lumbar region (3) Chronic pain syndrome: Code(s): G89.4 - Chronic pain syndrome Plan Masspat was reviewed and without concerns. No obvious signs of diversion, abuse or misuse of the opioid medications. Will send in prescription for Oxycodone 5mg po TID with an advanced date of 03/01/2023. Req provided for random uds, patient advised to complete after visit. Patient to follow-up in the office in 1 month, sooner if needed. All questions and concerns have been answered and patient agrees with the plan. Medications: Refilled oxycodone Partial Fill upon patient request. 5 mg PO TID PRN 90 tabs 0RF pain 30 days Coding Level of Care Code Est Pt Level 4 (37472) Diagnoses Osteoarthritis of knees, bilateral M17.0 Spondylosis of lumbar spine M47.816 Chronic pain syndrome G89.4
[2023-02-16 10:19] VITALS: BP 144/70; PULSE 88; RESP 16; O2SAT 95; BMI 25.8
== END 2023-02-16 10:36 | disposition home or self-care (01) ==
PROVIDERS: PCP Internal Medicine; Visit Provider Anesthesiology
DX: M17.0 Bilateral primary osteoarthritis of knee (principal); M47.816 Spondylosis without myelopathy or radiculopathy, lumbar region; G89.4 Chronic pain syndrome
CPT/HCPCS: 99214

== ENCOUNTER → 2023-02-16 09:55 | Outpatient (BNVA) | payer MEDICARE, SELFPAY | PROVIDERS: PCP Internal Medicine; Visit Provider Anesthesiology | DX: Z51.81 Encounter for therapeutic drug level monitoring (principal); M17.0 Bilateral primary osteoarthritis of knee; M47.816 Spondylosis without myelopathy or radiculopathy, lumbar region; G89.4 Chronic pain syndrome | CPT/HCPCS: 99212 ==

== ENCOUNTER 2023-03-16 10:13 | Outpatient (AMB) | payer MEDICARE, SELFPAY ==
--- NOTE | 2023-03-16 10:15 | A.OFFVIS_ITS ---
Intake Vital Signs 03/16/23 10:26 Height 5 ft 2 in Weight 142 lb 4 oz BMI 26.0 BP 114/62 Blood Pressure Location Lt brachial Position Sitting Respiration 14 Pulse 94 Pulse Source Pulse Oximeter Pulse Oximetry (%) 95 Oxygen Delivery Method Room Air Intake Visit Reasons: Medication Count/confirmed Intake Note: Patient comes in for pill count to Oxycodone 5 mg tablets. Allergies sulfamethoxazole [From Bactrim] Allergy (Verified 03/16/23 10:25) anaphylaxis trimethoprim [From Bactrim] Allergy (Verified 03/16/23 10:25) anaphylaxis HPI HPI Comments History of Present Illness Details Marilyn is a very pleasant 71 year old female who presents to the office for follow up chronic pain and chronic opioid therapy management. Patient is prescribed Oxycodone 5mg po TID PRN. Patient arrived today with the expectation of having 51 pills, she presented 66 pills which were counted in the presence of two staff members and returned to the patient in the original prescription bottle. This demonstrates responsible attitude toward patient's opioid medications. Last time she was sent for urine drug screen we received the results and the results are concordant with the medications she is receiving. She denies side effects of the opioid medications. She presents herself today with complains on new pain generator. She is complaining on pain in bilateral shoulders. Physical exam is as below. She complains on pain in the neck as well but does not feel that pain in the neck is increased when shoulder pain is increased. I will send her for the x-ray of bilateral shoulders. I can offer her intra-articular shoulder injections. Patient had recent L5 Sprint PNS, was removed last month. She reports continued improvement in her pain since device removal. Prior visit with Dr Crook: Marilyn is a very pleasant 71 year old female who presents to the office for follow up chronic pain and chronic opioid therapy management. Patient s/p Bilateral L5 PNS Sprint, she reports improvement in her pain, mobility and function with Sprint. She is able to titrate the stimulation and perform dressing changes without difficulty. She is here today to remove the stimulating leads. She reports her pain 3/10. She reports better mobility better activities of daily living better social interactions. Next appointment for pill count is on 01/19/2023. The relating leads and the dressings were removed without complications. No evidence of infection, no drainage, no redness, no swelling. Prior: Marilyn is a pleasant 69-year-old female who is treated in my office chronic low back pain. She is here today for dressing change for bilateral PNS print. She reports good stimulation from bilateral wires. She reports better mobility and better activities of daily living. She observes a mobility limitations related to the procedure. This is her 2nd sprint PNS insertion. She has someone at home who will be able to change her dressings in the future. Her right lead appears to be slightly longer than the left 1 however she feel stimulation on both sides appropriately. She is here today for the follow-up her last pill count was performed in the operating room and the pills will be sent to her pharmacy today as below. She had good results 8 months from bilateral L5 sprint PNS however now she reports that her pain is coming back. She went for right-sided implantation of the sprint PNS 2nd time around, she reports already pain improvement, her pain is 4/10. She is going for left-sided procedure on 11/19/2022. [facility] Medical History (Updated 03/16/23 @ 10:38 by Goran Crook MD) Finger pain, left Patent foramen ovale Migraine Hypothyroid HTN (hypertension) Chronic pain syndrome Spondylosis of lumbar spine Osteoarthritis of knees, bilateral Surgical History (Updated 11/05/22 @ 12:58 by Zulay Raygoza RN) History of back surgery Hx of section Hx laparoscopic cholecystectomy Social History Patient Tobacco Use Status: Never used Tobacco Second Hand Smoke Exposure: No Review of Systems Const All systems reviewed & are unremarkable except as noted in HPI and below Physical Exam Vital Signs: Last Vital Signs Pulse 94 03/16/23 10:26 Resp 14 03/16/23 10:26 BP 114/62 03/16/23 10:26 Pulse Ox 95 03/16/23 10:26 Oxygen Delivery Method Room Air 03/16/23 10:26 BMI result Body Mass Index 26.0 General: awake, alert, oriented. Answers questions appropriately. Fully engaged in examination. Skin: warm, dry, intact HEENT: Normocephalic. Hearing intact. Cardiac: External chest normal in appearance. Respiratory: No cough, audible wheezing or stridor. Abdomen: without gross distension. MS: No obvious swelling or deformities. Able to transition from sit to stand unassisted. Ambulates with bilaterally normal heel strike and toe off Neurological: Oriented to person, place, time and situation. Thought process intact. No gait abnormalities appreciated. Psychiatric: Appropriate mood and affect. Good judgment and insight. Extrem Other: Good range of motion of bilateral shoulder joints. No signs of shoulder exam evident of rotator cuff tear. No signs of frozen shoulder. No cracking on palpation. No crepitus with motion. Assessment & Plan Assessment & Plan (1) Osteoarthritis of knees, bilateral: Code(s): M17.0 - Bilateral primary osteoarthritis of knee (2) Spondylosis of lumbar spine: Code(s): M47.816 - Spondylosis without myelopathy or radiculopathy, lumbar region (3) Chronic pain syndrome: Code(s): G89.4 - Chronic pain syndrome (4) Bilateral shoulder region arthritis: Code(s): M19.011 - Primary osteoarthritis, right shoulder; M19.012 - Primary osteoarthritis, left shoulder Plan Masspat was reviewed and without concerns. No obvious signs of diversion, abuse or misuse of the opioid medications. Will send in prescription for Oxycodone 5mg po TID with an advanced date of 04/02/2023. UDS is compliant with the medication she is prescribed. New pain generator is presented. Looks like it is shoulder arthritis, I will send her for x-ray of bilateral shoulders. Patient to follow-up in the office in 1 month, sooner if needed. All questions and concerns have been answered and patient agrees with the plan. Orders: Orders XR shoulder LT min 2V Today M19.011 - Primary osteoarthritis, right shoulder, M19.012 - Primary osteoarthritis, left shoulder XR shoulder RT min 2V Today M19.011 - Primary osteoarthritis, right shoulder, M19.012 - Primary osteoarthritis, left shoulder Medications: Refilled oxycodone Partial Fill upon patient request. 5 mg PO TID PRN 90 tabs 0RF pain 30 days Coding Level of Care Code Est Pt Level 3 (63566) Diagnoses Osteoarthritis of knees, bilateral M17.0 Spondylosis of lumbar spine M47.816 Chronic pain syndrome G89.4 Bilateral shoulder region arthritis M19.011; M19.012
[2023-03-16 10:26] VITALS: BP 114/62; PULSE 94; RESP 14; O2SAT 95; BMI 26.0
== END 2023-03-16 10:33 | disposition home or self-care (01) ==
PROVIDERS: PCP Internal Medicine; Visit Provider Anesthesiology
DX: G89.4 Chronic pain syndrome (principal); M17.0 Bilateral primary osteoarthritis of knee; M47.816 Spondylosis without myelopathy or radiculopathy, lumbar region; Z79.891 Long term (current) use of opiate analgesic; M19.011 Primary osteoarthritis, right shoulder; M19.012 Primary osteoarthritis, left shoulder
CPT/HCPCS: 99213

== ENCOUNTER 2023-03-16 10:13 | Outpatient (REF) | payer MEDICARE, SELFPAY ==
--- NOTE | ~2023-03-16 | XR_ITS ---
EXAMINATION: XR SHOULDER, RIGHT CLINICAL INFORMATION: Pain in right shoulder COMPARISON: None available. TECHNIQUE: AP external rotation, Grashey, scapular Y, and axillary views of the right shoulder. FINDINGS: The bones and soft tissues are normal. No fracture. Glenohumeral and acromioclavicular alignment is anatomic with normal joint space. No abnormal soft tissue calcifications. XR/XR shoulder RT min 2V IMPRESSION: Normal right shoulder.
--- NOTE | ~2023-03-16 | XR_ITS ---
EXAMINATION: XR SHOULDER, LEFT CLINICAL INFORMATION: Pain in left shoulder COMPARISON: None available. TECHNIQUE: AP external rotation, Grashey, scapular Y, and axillary views of the left shoulder. FINDINGS: The bones and soft tissues are normal. No fracture. Glenohumeral and acromioclavicular alignment is anatomic with normal joint space. No abnormal soft tissue calcifications. XR/XR shoulder LT min 2V IMPRESSION: Normal left shoulder.
== END 2023-03-16 10:14 | disposition home or self-care (01) ==
LOC: HO.XRAY 10:13
PROVIDERS: PCP Internal Medicine; Visit Provider Anesthesiology
DX: M19.011 Primary osteoarthritis, right shoulder (principal); M19.012 Primary osteoarthritis, left shoulder; M17.0 Bilateral primary osteoarthritis of knee; M47.816 Spondylosis without myelopathy or radiculopathy, lumbar region; G89.4 Chronic pain syndrome
CPT/HCPCS: 73030; 99212

== ENCOUNTER 2023-04-13 10:12 | Outpatient (AMB) | payer MEDICARE, SELFPAY ==
--- NOTE | 2023-04-13 10:17 | A.OFFVIS_ITS ---
Intake Vital Signs 04/13/23 10:26 Height 5 ft 2 in Weight 142 lb BMI 26.0 BP 138/66 Blood Pressure Location Lt brachial Position Sitting Respiration 16 Pulse 91 Pulse Source Pulse Oximeter Pulse Oximetry (%) 95 Oxygen Delivery Method Room Air Intake Visit Reasons: Medication Count/lvm Intake Note: Patient comes in for pill count to Oxycodone 5 mg tablets. Allergies sulfamethoxazole [From Bactrim] Allergy (Verified 04/13/23 10:17) anaphylaxis trimethoprim [From Bactrim] Allergy (Verified 04/13/23 10:17) anaphylaxis HPI HPI Comments History of Present Illness Details Marilyn is a very pleasant 71 year old female who presents to the office for follow up chronic pain and chronic opioid therapy management. Patient is prescribed Oxycodone 5mg po TID PRN. Patient supposed to have 57 pills in her possession, she presented with 72 pills. This demonstrates responsible attitude to were the opioid medications. She was diagnosed with obstructive sleep apnea. Narcan was discussed with the patient. Taking medications no later than 2 hours before HS was explained to the patient. Last time she complained on pain in bilateral shoulders. I sent her for the shoulder x-rays which were completely normal. Most likely it is myofascial pain syndrome, I offered her to go for physical therapy for her shoulders but she refused. Patient had recent L5 Sprint PNS, was removed last month. She reports continued improvement in her pain since device removal. She does not want to repeat sprint PNS. The procedure was done in November of 2022. Prior: Marilyn is a pleasant 69-year-old female who is treated in my office chronic low back pain. She is here today for dressing change for bilateral PNS print. She reports good stimulation from bilateral wires. She reports better mobility and better activities of daily living. She observes a mobility limitations related to the procedure. This is her 2nd sprint PNS insertion. She has someone at home who will be able to change her dressings in the future. Her right lead appears to be slightly longer than the left 1 however she feel stimulation on both sides appropriately. She is here today for the follow-up her last pill count was performed in the operating room and the pills will be sent to her pharmacy today as below. She had good results 8 months from bilateral L5 sprint PNS however now she reports that her pain is coming back. [facility] Medical History (Updated 03/16/23 @ 10:38 by Goran Crook MD) Finger pain, left Patent foramen ovale Migraine Hypothyroid HTN (hypertension) Chronic pain syndrome Spondylosis of lumbar spine Osteoarthritis of knees, bilateral Surgical History (Updated 11/05/22 @ 12:58 by Zulay Raygoza RN) History of back surgery Hx of section Hx laparoscopic cholecystectomy Social History Patient Tobacco Use Status: Never used Tobacco Second Hand Smoke Exposure: No Review of Systems Const All systems reviewed & are unremarkable except as noted in HPI and below Physical Exam Vital Signs: Last Vital Signs Pulse 91 04/13/23 10:26 Resp 16 04/13/23 10:26 BP 138/66 04/13/23 10:26 Pulse Ox 95 04/13/23 10:26 Oxygen Delivery Method Room Air 04/13/23 10:26 BMI result Body Mass Index 26.0 General: awake, alert, oriented. Answers questions appropriately. Fully engaged in examination. Skin: warm, dry, intact HEENT: Normocephalic. Hearing intact. Cardiac: External chest normal in appearance. Respiratory: No cough, audible wheezing or stridor. Abdomen: without gross distension. MS: No obvious swelling or deformities. Able to transition from sit to stand unassisted. Ambulates with bilaterally normal heel strike and toe off Neurological: Oriented to person, place, time and situation. Thought process intact. No gait abnormalities appreciated. Psychiatric: Appropriate mood and affect. Good judgment and insight. Resp Effort & Inspection: normal respiratory effort, able to speak in complete sentences, normal respiratory pattern, no audible wheezes and no cough Cardio Jugular venous distension: no JVD GI Inspection: Yes normal to inspection Extrem Other: Good range of motion of bilateral shoulder joints. No signs of shoulder exam evident of rotator cuff tear. No signs of frozen shoulder. No cracking on palpation. No crepitus with motion. Assessment & Plan Assessment & Plan (1) Osteoarthritis of knees, bilateral: Code(s): M17.0 - Bilateral primary osteoarthritis of knee (2) Spondylosis of lumbar spine: Code(s): M47.816 - Spondylosis without myelopathy or radiculopathy, lumbar region (3) Chronic pain syndrome: Code(s): G89.4 - Chronic pain syndrome (4) Bilateral shoulder region arthritis: Code(s): M19.011 - Primary osteoarthritis, right shoulder; M19.012 - Primary osteoarthritis, left shoulder Plan [facility] was reviewed and without concerns. No obvious signs of diversion, abuse or misuse of the opioid medications. Will send in prescription for Oxycodone 5mg po TID with an advanced date of 05/02/2023 Diagnosed with KYLE. I will issue Narcan. I warned her not to take her opioids 2 hours before HS. New pain generator is presented. Looks like it is shoulder arthritis, I will send her for x-ray of bilateral shoulders. Patient to follow-up in the office in 1 month, sooner if needed. Narcan will be prescribed intranasally. She said that she will speak with her daughter about Narcan application in case of emergency. Medications: New naloxone 4 mg/actuation spray 1 dose into ONE nostril; alternate nostrils w each dose until help arrives 4 mg intranasal Q3M PRN 2 ea 1RF opioid overdose Refilled oxycodone Partial Fill upon patient request. 5 mg PO TID PRN 90 tabs 0RF pain 30 days Patient Instructions: I here by testify that I spent 35 minutes in conversation with this patient as well as evaluating her records planning her care and organizing her note. Coding Level of Care Code Est Pt Level 4 (08870) Diagnoses Osteoarthritis of knees, bilateral M17.0 Spondylosis of lumbar spine M47.816 Chronic pain syndrome G89.4 Bilateral shoulder region arthritis M19.011; M19.012
[2023-04-13 10:26] VITALS: BP 138/66; PULSE 91; RESP 16; O2SAT 95; BMI 26.0
== END 2023-04-13 10:36 | disposition home or self-care (01) ==
PROVIDERS: PCP Internal Medicine; Visit Provider Anesthesiology
DX: G89.4 Chronic pain syndrome (principal); M17.0 Bilateral primary osteoarthritis of knee; M47.816 Spondylosis without myelopathy or radiculopathy, lumbar region; Z79.891 Long term (current) use of opiate analgesic; M19.011 Primary osteoarthritis, right shoulder; M19.012 Primary osteoarthritis, left shoulder
CPT/HCPCS: 99214

== ENCOUNTER → 2023-04-13 10:12 | Outpatient (BNVA) | payer MEDICARE, SELFPAY | PROVIDERS: PCP Internal Medicine; Visit Provider Anesthesiology | DX: Z51.81 Encounter for therapeutic drug level monitoring (principal); F11.20 Opioid dependence, uncomplicated; M17.0 Bilateral primary osteoarthritis of knee; M47.816 Spondylosis without myelopathy or radiculopathy, lumbar region; M19.011 Primary osteoarthritis, right shoulder; M19.012 Primary osteoarthritis, left shoulder | CPT/HCPCS: 99212 ==

== ENCOUNTER 2023-05-11 10:21 | Outpatient (AMB) | payer MEDICARE, SELFPAY ==
--- NOTE | 2023-05-11 10:27 | MHC.OFFVIS ---
Intake Vital Signs 05/11/23 10:31 Height 5 ft 2 in Weight 142 lb BMI 26.0 BP 130/68 Blood Pressure Location Lt brachial Position Sitting Respiration 16 Pulse 87 Pulse Source Pulse Oximeter Pulse Oximetry (%) 95 Oxygen Delivery Method Room Air Intake Visit Reasons: PILL COUNT/CONFIRM Intake Note: Patient comes in for pill count. Reports pain 05/14. Allergies sulfamethoxazole [From Bactrim] Allergy (Verified 05/11/23 10:31) anaphylaxis trimethoprim [From Bactrim] Allergy (Verified 05/11/23 10:31) anaphylaxis HPI HPI Comments History of Present Illness Details Marilyn is a very pleasant 71 year old female who presents to the office for follow up chronic pain and chronic opioid therapy management. Patient is prescribed Oxycodone 5mg po TID PRN. Patient supposed to have 72 pills in her possession, she presented with 80 pills. This demonstrates responsible attitude to were the opioid medications. She was diagnosed with obstructive sleep apnea. Narcan intranasal was prescribed to the patient. She explained her daughter how to use the Narcan. She has an appointment for CPAP machine on . Normal shoulder x-ray no procedures are indicated regarding the shoulder pain. Patient had recent L5 Sprint PNS, was removed last month. She reports continued improvement in her pain since device removal. She does not want to repeat sprint PNS. The procedure was done in November of 2022. Prior: Marilyn is a pleasant 69-year-old female who is treated in my office chronic low back pain. She is here today for dressing change for bilateral PNS print. She reports good stimulation from bilateral wires. She reports better mobility and better activities of daily living. She observes a mobility limitations related to the procedure. This is her 2nd sprint PNS insertion. She has someone at home who will be able to change her dressings in the future. Her right lead appears to be slightly longer than the left 1 however she feel stimulation on both sides appropriately. She is here today for the follow-up her last pill count was performed in the operating room and the pills will be sent to her pharmacy today as below. She had good results 8 months from bilateral L5 sprint PNS however now she reports that her pain is coming back. [facility] Medical History (Updated 03/16/23 @ 10:38 by Goran Crook MD) Finger pain, left Patent foramen ovale Migraine Hypothyroid HTN (hypertension) Chronic pain syndrome Spondylosis of lumbar spine Osteoarthritis of knees, bilateral Surgical History (Updated 11/05/22 @ 12:58 by Zulay Raygoza RN) History of back surgery Hx of section Hx laparoscopic cholecystectomy Social History Patient Tobacco Use Status: Never used Tobacco Second Hand Smoke Exposure: No Review of Systems Const All systems reviewed & are unremarkable except as noted in HPI and below Physical Exam Vital Signs: Last Vital Signs Pulse 87 05/11/23 10:31 Resp 16 05/11/23 10:31 BP 130/68 05/11/23 10:31 Pulse Ox 95 05/11/23 10:31 Oxygen Delivery Method Room Air 05/11/23 10:31 BMI result Body Mass Index 26.0 General: awake, alert, oriented. Answers questions appropriately. Fully engaged in examination. Skin: warm, dry, intact HEENT: Normocephalic. Hearing intact. Cardiac: External chest normal in appearance. Respiratory: No cough, audible wheezing or stridor. Abdomen: without gross distension. MS: No obvious swelling or deformities. Able to transition from sit to stand unassisted. Ambulates with bilaterally normal heel strike and toe off Neurological: Oriented to person, place, time and situation. Thought process intact. No gait abnormalities appreciated. Psychiatric: Appropriate mood and affect. Good judgment and insight. Resp Effort & Inspection: normal respiratory effort, able to speak in complete sentences, normal respiratory pattern, no audible wheezes and no cough Cardio Jugular venous distension: no JVD GI Inspection: Yes normal to inspection Extrem Other: Good range of motion of bilateral shoulder joints. No signs of shoulder exam evident of rotator cuff tear. No signs of frozen shoulder. No cracking on palpation. No crepitus with motion. Assessment & Plan Assessment & Plan (1) Osteoarthritis of knees, bilateral: Code(s): M17.0 - Bilateral primary osteoarthritis of knee (2) Spondylosis of lumbar spine: Code(s): M47.816 - Spondylosis without myelopathy or radiculopathy, lumbar region (3) Chronic pain syndrome: Code(s): G89.4 - Chronic pain syndrome (4) Bilateral shoulder region arthritis: Code(s): M19.011 - Primary osteoarthritis, right shoulder; M19.012 - Primary osteoarthritis, left shoulder Plan [facility] was reviewed and without concerns. No obvious signs of diversion, abuse or misuse of the opioid medications. Will send in prescription for Oxycodone 5mg po TID with an advanced date of 06/03/2023 Diagnosed with KYLE. Narcan is prescribed on 04/13/2023. Shoulder x-rays negative, no follow-up is needed on this her level of pain is 3/10 total anyway. Patient to follow-up in the office in 1 month, sooner if needed. Narcan will be prescribed intranasally. She said that she will speak with her daughter about Narcan application in case of emergency. Medications: Refilled oxycodone Partial Fill upon patient request. 5 mg PO TID 30 days PRN 90 tabs 0RF pain Coding Level of Care Code Est Pt Level 3 (62396) Diagnoses Osteoarthritis of knees, bilateral M17.0 Spondylosis of lumbar spine M47.816 Chronic pain syndrome G89.4 Bilateral shoulder region arthritis M19.011; M19.012
[2023-05-11 10:31] VITALS: BP 130/68; PULSE 87; RESP 16; O2SAT 95; BMI 26.0
== END 2023-05-11 10:49 | disposition home or self-care (01) ==
PROVIDERS: PCP Internal Medicine; Visit Provider Anesthesiology
DX: M17.0 Bilateral primary osteoarthritis of knee (principal); M47.816 Spondylosis without myelopathy or radiculopathy, lumbar region; Z79.891 Long term (current) use of opiate analgesic; G89.4 Chronic pain syndrome; M19.011 Primary osteoarthritis, right shoulder; M19.012 Primary osteoarthritis, left shoulder
CPT/HCPCS: 99213

== ENCOUNTER → 2023-05-11 10:21 | Outpatient (BNVA) | payer MEDICARE, SELFPAY | PROVIDERS: PCP Internal Medicine; Visit Provider Anesthesiology | DX: Z51.81 Encounter for therapeutic drug level monitoring (principal); F11.20 Opioid dependence, uncomplicated; M17.0 Bilateral primary osteoarthritis of knee; M47.816 Spondylosis without myelopathy or radiculopathy, lumbar region; M19.011 Primary osteoarthritis, right shoulder; M19.012 Primary osteoarthritis, left shoulder; G89.4 Chronic pain syndrome | CPT/HCPCS: 99212 ==

== ENCOUNTER 2023-06-15 10:23 | Outpatient (AMB) | payer MEDICARE, SELFPAY ==
--- NOTE | 2023-06-15 10:24 | MHC.OFFVIS ---
Intake Vital Signs 06/15/23 10:31 Height 5 ft 2 in Weight 141 lb 6 oz BMI 25.9 BP 142/72 H Blood Pressure Location Lt brachial Position Sitting Respiration 14 Pulse 82 Pulse Source Pulse Oximeter Pulse Oximetry (%) 96 Oxygen Delivery Method Room Air Intake Visit Reasons: Pill Count Intake Note: Patient comes in for pill count. Reports pain 06/14. Allergies sulfamethoxazole [From Bactrim] Allergy (Verified 06/15/23 10:31) anaphylaxis trimethoprim [From Bactrim] Allergy (Verified 06/15/23 10:31) anaphylaxis HPI HPI Comments History of Present Illness Details Marilyn is a very pleasant 71 year old female who presents to the office for follow up chronic pain and chronic opioid therapy management. Patient is prescribed Oxycodone 5mg po TID PRN. Patient supposed to have 60 pills in her possession, she presented with 69 pills. This demonstrates responsible attitude to were the opioid medications. She was diagnosed with obstructive sleep apnea. Narcan intranasal was prescribed to the patient. She explained her daughter how to use the Narcan. She had an appointment to fit for CPAP machine however the patient was told that she can not have CPAP machine, Medicare will not pay for CPAP because her KYLE is mild Patient had recent L5 Sprint PNS, was removed last month. She reports continued improvement in her pain since device removal. She does not want to repeat sprint PNS. The procedure was done in November of 2022. She reports that with warmer weather coming her pain is better. Prior: Marilyn is a pleasant 69-year-old female who is treated in my office chronic low back pain. She is here today for dressing change for bilateral PNS print. She reports good stimulation from bilateral wires. She reports better mobility and better activities of daily living. She observes a mobility limitations related to the procedure. This is her 2nd sprint PNS insertion. She has someone at home who will be able to change her dressings in the future. Her right lead appears to be slightly longer than the left 1 however she feel stimulation on both sides appropriately. She is here today for the follow-up her last pill count was performed in the operating room and the pills will be sent to her pharmacy today as below. She had good results 8 months from bilateral L5 sprint PNS however now she reports that her pain is coming back. [facility] Medical History (Updated 03/16/23 @ 10:38 by Goran Crook MD) Finger pain, left Patent foramen ovale Migraine Hypothyroid HTN (hypertension) Chronic pain syndrome Spondylosis of lumbar spine Osteoarthritis of knees, bilateral Surgical History (Updated 11/05/22 @ 12:58 by Zulay Raygoza RN) History of back surgery Hx of section Hx laparoscopic cholecystectomy Social History Patient Tobacco Use Status: Never used Tobacco Second Hand Smoke Exposure: No Review of Systems Const All systems reviewed & are unremarkable except as noted in HPI and below Physical Exam Vital Signs: Last Vital Signs Pulse 82 06/15/23 10:31 Resp 14 06/15/23 10:31 BP 142/72 H 06/15/23 10:31 Pulse Ox 96 06/15/23 10:31 Oxygen Delivery Method Room Air 06/15/23 10:31 BMI result Body Mass Index 25.9 General: awake, alert, oriented. Answers questions appropriately. Fully engaged in examination. Skin: warm, dry, intact HEENT: Normocephalic. Hearing intact. Cardiac: External chest normal in appearance. Respiratory: No cough, audible wheezing or stridor. Abdomen: without gross distension. MS: No obvious swelling or deformities. Able to transition from sit to stand unassisted. Ambulates with bilaterally normal heel strike and toe off Neurological: Oriented to person, place, time and situation. Thought process intact. No gait abnormalities appreciated. Psychiatric: Appropriate mood and affect. Good judgment and insight. Resp Effort & Inspection: normal respiratory effort, able to speak in complete sentences, normal respiratory pattern, no audible wheezes and no cough Cardio Jugular venous distension: no JVD GI Inspection: Yes normal to inspection Extrem Other: Good range of motion of bilateral shoulder joints. No signs of shoulder exam evident of rotator cuff tear. No signs of frozen shoulder. No cracking on palpation. No crepitus with motion. Assessment & Plan Assessment & Plan (1) Osteoarthritis of knees, bilateral: Code(s): M17.0 - Bilateral primary osteoarthritis of knee (2) Spondylosis of lumbar spine: Code(s): M47.816 - Spondylosis without myelopathy or radiculopathy, lumbar region (3) Chronic pain syndrome: Code(s): G89.4 - Chronic pain syndrome (4) Bilateral shoulder region arthritis: Code(s): M19.011 - Primary osteoarthritis, right shoulder; M19.012 - Primary osteoarthritis, left shoulder [facility]. No obvious signs of diversion, abuse or misuse of the opioid medications. Will send in prescription for Oxycodone 5mg po TID with an advanced date of 07/05/2023 Diagnosed with KYLE. Medicare does not cover the cost of KYLE because it is mild. Narcan is prescribed on 04/13/2023. Her relatives are aware of function and the way to use it. With warmer weather onset she does not want to repeat sprint PNS. Patient to follow-up in the office in 1 month, sooner if needed. Medications: Refilled oxycodone Partial Fill upon patient request. 5 mg PO TID 30 days PRN 90 tabs 0RF pain Coding Level of Care Code Est Pt Level 3 (82015) Diagnoses Osteoarthritis of knees, bilateral M17.0 Spondylosis of lumbar spine M47.816 Chronic pain syndrome G89.4 Bilateral shoulder region arthritis M19.011; M19.012
[2023-06-15 10:31] VITALS: BP 142/72; PULSE 82; RESP 14; O2SAT 96; BMI 25.9
== END 2023-06-15 10:45 | disposition home or self-care (01) ==
PROVIDERS: PCP Internal Medicine; Visit Provider Anesthesiology
DX: G89.4 Chronic pain syndrome (principal); M17.0 Bilateral primary osteoarthritis of knee; M47.816 Spondylosis without myelopathy or radiculopathy, lumbar region; M19.011 Primary osteoarthritis, right shoulder; M19.012 Primary osteoarthritis, left shoulder
CPT/HCPCS: 99213

== ENCOUNTER → 2023-06-15 10:23 | Outpatient (BNVA) | payer MEDICARE, SELFPAY | PROVIDERS: PCP Internal Medicine; Visit Provider Anesthesiology | DX: Z51.81 Encounter for therapeutic drug level monitoring (principal); F11.20 Opioid dependence, uncomplicated; M17.0 Bilateral primary osteoarthritis of knee; M47.816 Spondylosis without myelopathy or radiculopathy, lumbar region; M19.011 Primary osteoarthritis, right shoulder; M19.012 Primary osteoarthritis, left shoulder; G89.4 Chronic pain syndrome | CPT/HCPCS: 99212 ==

== ENCOUNTER 2023-07-13 10:55 | Outpatient (AMB) | payer MEDICARE, SELFPAY ==
--- NOTE | 2023-07-13 11:00 | MHC.OFFVIS ---
Vital Signs 07/13/23 11:11 Height 5 ft 2 in Weight 142 lb BMI 26.0 BP 134/70 Blood Pressure Location Lt brachial Position Sitting Respiration 16 Pulse 81 Pulse Source Pulse Oximeter Pulse Oximetry (%) 95 Oxygen Delivery Method Room Air Intake Visit Reasons: PILL COUNT Intake Note: Patient comes in for pill count. Reports pain 4/10. Allergies sulfamethoxazole [From Bactrim] Allergy (Verified 07/13/23 11:10) anaphylaxis trimethoprim [From Bactrim] Allergy (Verified 07/13/23 11:10) anaphylaxis HPI Comments Details: Marilyn is a very pleasant 71 year old female who presents to the office for follow up chronic pain and chronic opioid therapy management. Patient is prescribed Oxycodone 5mg po TID PRN. Patient supposed to have 66 pills in her possession, she presented with 71 pills. This demonstrates responsible attitude to were the opioid medications. She reports opioid medications allow her to stay more active perform better activities of daily living performed by the social interactions. She has obstructive sleep apnea. She has Narcan prescribed for her at home. The medication is start in her household and her relatives know how to use it. Patient had recent L5 Sprint PNS. She reports continued improvement in her pain since device removal. She does not want to repeat sprint PNS. The procedure was done in November of 2022. She reports that with warmer weather coming her pain is better. Prior: Marilyn is a pleasant 69-year-old female who is treated in my office chronic low back pain. She is here today for dressing change for bilateral PNS print. She reports good stimulation from bilateral wires. She reports better mobility and better activities of daily living. She observes a mobility limitations related to the procedure. This is her 2nd sprint PNS insertion. She has someone at home who will be able to change her dressings in the future. Her right lead appears to be slightly longer than the left 1 however she feel stimulation on both sides appropriately. She is here today for the follow-up her last pill count was performed in the operating room and the pills will be sent to her pharmacy today as below. She had good results 8 months from bilateral L5 sprint PNS however now she reports that her pain is coming back. [facility] Medical History (Updated 03/16/23 @ 10:38 by Goran Crook MD) Finger pain, left Patent foramen ovale Migraine Hypothyroid HTN (hypertension) Chronic pain syndrome Spondylosis of lumbar spine Osteoarthritis of knees, bilateral Surgical History (Updated 11/05/22 @ 12:58 by Zulay Raygoza RN) History of back surgery Hx of section Hx laparoscopic cholecystectomy Social History Patient Tobacco Use Status: Never used Tobacco Second Hand Smoke Exposure: No Review of Systems Const All systems reviewed & are unremarkable except as noted in HPI and below Physical Exam Vital Signs: Last Vital Signs Pulse 81 07/13/23 11:11 Resp 16 07/13/23 11:11 BP 134/70 07/13/23 11:11 Pulse Ox 95 07/13/23 11:11 Oxygen Delivery Method Room Air 07/13/23 11:11 BMI result Body Mass Index 26.0 General: awake, alert, oriented. Answers questions appropriately. Fully engaged in examination. Skin: warm, dry, intact HEENT: Normocephalic. Hearing intact. Cardiac: External chest normal in appearance. Respiratory: No cough, audible wheezing or stridor. Abdomen: without gross distension. MS: No obvious swelling or deformities. Able to transition from sit to stand unassisted. Ambulates with bilaterally normal heel strike and toe off Neurological: Oriented to person, place, time and situation. Thought process intact. No gait abnormalities appreciated. Psychiatric: Appropriate mood and affect. Good judgment and insight. Resp Effort & Inspection: normal respiratory effort, able to speak in complete sentences, normal respiratory pattern, no audible wheezes and no cough Cardio Jugular venous distension: no JVD GI Inspection: Yes normal to inspection Extrem Other: Good range of motion of bilateral shoulder joints. No signs of shoulder exam evident of rotator cuff tear. No signs of frozen shoulder. No cracking on palpation. No crepitus with motion. Assessment & Plan Assessment & Plan (1) Osteoarthritis of knees, bilateral: Code(s): M17.0 - Bilateral primary osteoarthritis of knee Category: Medical (2) Spondylosis of lumbar spine: Code(s): M47.816 - Spondylosis without myelopathy or radiculopathy, lumbar region Category: Medical (3) Chronic pain syndrome: Code(s): G89.4 - Chronic pain syndrome Category: Medical (4) Bilateral shoulder region arthritis: Code(s): M19.011 - Primary osteoarthritis, right shoulder; M19.012 - Primary osteoarthritis, left shoulder Category: [facility]. No obvious signs of diversion, abuse or misuse of the opioid medications. Will send in prescription for Oxycodone 5mg po TID with an advanced date of 08/04/2023 Diagnosed with KYLE. Medicare does not cover the cost of CPAP machine because it is mild. Narcan is prescribed on 04/13/2023. Her relatives are aware of function and the way to use it. With warmer weather onset she does not want to repeat sprint PNS. Patient to follow-up in the office in 1 month, sooner if needed. Medications: Refilled oxycodone Partial Fill upon patient request. 5 mg PO TID 30 days PRN 90 tabs 0RF pain Coding Level of Care Code Est Pt Level 3 (69873) Diagnoses Osteoarthritis of knees, bilateral M17.0 Spondylosis of lumbar spine M47.816 Chronic pain syndrome G89.4 Bilateral shoulder region arthritis M19.011; M19.012
[2023-07-13 11:11] VITALS: BP 134/70; PULSE 81; RESP 16; O2SAT 95; BMI 26.0
== END 2023-07-13 11:20 | disposition home or self-care (01) ==
PROVIDERS: PCP Internal Medicine; Visit Provider Anesthesiology
DX: G89.4 Chronic pain syndrome (principal); M17.0 Bilateral primary osteoarthritis of knee; M47.816 Spondylosis without myelopathy or radiculopathy, lumbar region; Z79.891 Long term (current) use of opiate analgesic; M19.011 Primary osteoarthritis, right shoulder; M19.012 Primary osteoarthritis, left shoulder
CPT/HCPCS: 99213

== ENCOUNTER → 2023-07-13 10:55 | Outpatient (BNVA) | payer MEDICARE, SELFPAY | PROVIDERS: PCP Internal Medicine; Visit Provider Anesthesiology | DX: Z51.81 Encounter for therapeutic drug level monitoring (principal); F11.20 Opioid dependence, uncomplicated; M17.0 Bilateral primary osteoarthritis of knee; M47.816 Spondylosis without myelopathy or radiculopathy, lumbar region; M19.011 Primary osteoarthritis, right shoulder; M19.012 Primary osteoarthritis, left shoulder; G89.4 Chronic pain syndrome | CPT/HCPCS: 99212 ==

== ENCOUNTER 2023-08-11 11:12 | Outpatient (AMB) | payer MEDICARE, SELFPAY ==
--- NOTE | 2023-08-11 11:13 | MHC.OFFVIS ---
Vital Signs 08/11/23 11:28 Height 5 ft 2 in Weight 140 lb 8 oz BMI 25.7 BP 130/72 Blood Pressure Location Lt brachial Position Sitting Respiration 14 Pulse 77 Pulse Source Pulse Oximeter Pulse Oximetry (%) 94 Oxygen Delivery Method Room Air Intake Visit Reasons: PILL COUNT Intake Note: Patient comes in for pill count. Reports pain 4/10. Allergies sulfamethoxazole [From Bactrim] Allergy (Verified 08/11/23 11:28) anaphylaxis trimethoprim [From Bactrim] Allergy (Verified 08/11/23 11:28) anaphylaxis HPI Comments Details: Marilyn is a very pleasant 71 year old female who presents to the office for follow up chronic pain and chronic opioid therapy management. She presented today for pill count she is on oxycodone 5 mg t.i.d. she supposed to have 69 pills in her possession, she presented with 78 pills. This demonstrates responsible attitude of the patient to were the opioid medications. She reports her pain is 4/10. She reports in the summertime her pain usually is better. She was a subject of L5 sprint PNS the past she reported good pain relief. She requests me to consider to repeat her PNS sprint in November closer to wet and cold weather time of the year. She has obstructive sleep apnea. She has Narcan prescribed for her at home. The medication is stored her household and her relatives know how to use it. Patient had recent L5 Sprint PNS. She reports continued improvement in her pain since device removal. She does not want to repeat sprint PNS. The procedure was done in November of 2022. She reports that with warmer weather coming her pain is better. Prior: Marilyn is a pleasant 69-year-old female who is treated in my office chronic low back pain. She is here today for dressing change for bilateral PNS print. She reports good stimulation from bilateral wires. She reports better mobility and better activities of daily living. She observes a mobility limitations related to the procedure. This is her 2nd sprint PNS insertion. She has someone at home who will be able to change her dressings in the future. Her right lead appears to be slightly longer than the left 1 however she feel stimulation on both sides appropriately. She is here today for the follow-up her last pill count was performed in the operating room and the pills will be sent to her pharmacy today as below. She had good results 8 months from bilateral L5 sprint PNS however now she reports that her pain is coming back. 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 Answers questions appropriately. Fully engaged in examination. Skin: warm, dry, intact HEENT: Normocephalic. Hearing intact. Cardiac: External chest normal in appearance. Respiratory: No cough, audible wheezing or stridor. Abdomen: without gross distension. MS: No obvious swelling or deformities. Able to transition from sit to stand unassisted. Ambulates with bilaterally normal heel strike and toe off Neurological: Oriented to person, place, time and situation. Thought process intact. No gait abnormalities appreciated. Psychiatric: Appropriate mood and affect. Good judgment and insight. Resp Effort & Inspection: normal respiratory effort, able to speak in complete sentences, normal respiratory pattern, no audible wheezes and no cough Cardio Jugular venous distension: no JVD GI Inspection: Yes normal to inspection Extrem Other: Good range of motion of bilateral shoulder joints. No signs of shoulder exam evident of rotator cuff tear. No signs of frozen shoulder. No cracking on palpation. No crepitus with motion. Assessment & Plan Assessment & Plan (1) Osteoarthritis of knees, bilateral: Code(s): M17.0 - Bilateral primary osteoarthritis of knee Category: Medical (2) Spondylosis of lumbar spine: Code(s): M47.816 - Spondylosis without myelopathy or radiculopathy, lumbar region Category: Medical (3) Chronic pain syndrome: Code(s): G89.4 - Chronic pain syndrome Category: Medical (4) Bilateral shoulder region arthritis: Code(s): M19.011 - Primary osteoarthritis, right shoulder; M19.012 - Primary osteoarthritis, left shoulder Category: Medical Plan Masspat was reviewed and without concerns. No obvious signs of diversion, abuse or misuse of the opioid medications. Will send in prescription for Oxycodone 5mg po TID with an advanced date of 09/03/2023 Diagnosed with KYLE. Medicare does not cover the cost of CPAP machine because it is mild. Narcan is prescribed on 04/13/2023. Her relatives are aware of function and the way to use it. With warmer weather onset she does not want to repeat sprint PNS. We will schedule sprint PNS L5 in November. Patient to follow-up in the office in 1 month, sooner if needed. Medications: Refilled oxycodone Partial Fill upon patient request. 5 mg PO TID 30 days PRN 90 tabs 0RF pain oxycodone Partial Fill upon patient request. 5 mg PO TID 30 days PRN 90 tabs 0RF pain Patient Instructions: I here by testify that I spent 30 minutes in conversation with this patient as well as planning her care and organizing this note. Coding Level of Care Code Est Pt Level 4 (38523) Diagnoses Osteoarthritis of knees, bilateral M17.0 Spondylosis of lumbar spine M47.816 Chronic pain syndrome G89.4 Bilateral shoulder region arthritis M19.011; M19.012
[2023-08-11 11:28] VITALS: BP 130/72; PULSE 77; RESP 14; O2SAT 94; BMI 25.7
== END 2023-08-11 11:42 | disposition home or self-care (01) ==
PROVIDERS: PCP Internal Medicine; Visit Provider Anesthesiology
DX: G89.4 Chronic pain syndrome (principal); M17.0 Bilateral primary osteoarthritis of knee; M47.816 Spondylosis without myelopathy or radiculopathy, lumbar region; Z79.891 Long term (current) use of opiate analgesic; M19.011 Primary osteoarthritis, right shoulder; M19.012 Primary osteoarthritis, left shoulder
CPT/HCPCS: 99214

== ENCOUNTER → 2023-08-11 11:12 | Outpatient (BNVA) | payer MEDICARE, SELFPAY | PROVIDERS: PCP Internal Medicine; Visit Provider Anesthesiology | DX: Z51.81 Encounter for therapeutic drug level monitoring (principal); F11.20 Opioid dependence, uncomplicated; M17.0 Bilateral primary osteoarthritis of knee; M47.816 Spondylosis without myelopathy or radiculopathy, lumbar region; M19.011 Primary osteoarthritis, right shoulder; M19.012 Primary osteoarthritis, left shoulder; G89.4 Chronic pain syndrome | CPT/HCPCS: 99212 ==

== ENCOUNTER 2023-09-07 10:57 | Outpatient (AMB) | payer MEDICARE, SELFPAY ==
--- NOTE | 2023-09-07 11:01 | MHC.OFFVIS ---
Vital Signs 09/07/23 11:02 Height 5 ft 2 in BP 131/77 Blood Pressure Location Lt brachial Position Sitting Respiration 14 Pulse 81 Pulse Source Pulse Oximeter Pulse Oximetry (%) 95 Oxygen Delivery Method Room Air Intake Visit Reasons: PILL COUNT Intake Note: Pt states she last took oxycodone 09/07/23 @ 8:30am Allergies sulfamethoxazole [From Bactrim] Allergy (Verified 09/07/23 11:04) anaphylaxis trimethoprim [From Bactrim] Allergy (Verified 09/07/23 11:04) anaphylaxis Medication List - Last Reconciled 09/07/23 by Mari Diaz LPN amlodipine 5 mg PO BEDTIME cyclobenzaprine 10 mg PO TID levothyroxine 125 mcg PO DAILY lisinopril 10 mg PO DAILY naloxone 4 mg/actuation 4 mg intranasal Q3M PRN oxycodone 5 mg PO TID PRN 30 days trazodone 100 mg PO BEDTIME HPI Comments Details: Marilyn is a very pleasant 71 year old female who presents to the office for follow up chronic pain and chronic opioid therapy management. She presented today for pill count she is on oxycodone 5 mg t.i.d. she presented today for the pill count: She had 86 pills in her possession. She supposed to have 84 pills in her possession. This demonstrates responsible attitude of the patient to were the opioid medications. She reports her pain is 5/10 to 6/10. She reports that her pain is getting worse and she would like to reconsider the sprint PNS procedures. She would like to schedule them now with sedation. She has obstructive sleep apnea. She has Narcan prescribed for her at home. The medication is stored her household and her relatives know how to use it. Sprint PNS in November of 2022 resulted on very good prolonged pain relief up to 8-9 months. [facility] Medical History (Updated 03/16/23 @ 10:38 by Goran Crook MD) Finger pain, left Patent foramen ovale Migraine Hypothyroid HTN (hypertension) Chronic pain syndrome Spondylosis of lumbar spine Osteoarthritis of knees, bilateral Surgical History (Updated 11/05/22 @ 12:58 by Zulay Raygoza RN) History of back surgery Hx of section Hx laparoscopic cholecystectomy Social History Patient Tobacco Use Status: Never used Tobacco Second Hand Smoke Exposure: No Review of Systems Const All systems reviewed & are unremarkable except as noted in HPI and below Physical Exam Vital Signs: Last Vital Signs Pulse 81 09/07/23 11:02 Resp 14 09/07/23 11:02 BP 131/77 09/07/23 11:02 Pulse Ox 95 09/07/23 11:02 Oxygen Delivery Method Room Air 09/07/23 11:02 General: awake, alert, oriented. Answers questions appropriately. Fully engaged in examination. Skin: warm, dry, intact HEENT: Normocephalic. Hearing intact. Cardiac: External chest normal in appearance. Respiratory: No cough, audible wheezing or stridor. Abdomen: without gross distension. MS: No obvious swelling or deformities. Able to transition from sit to stand unassisted. Ambulates with bilaterally normal heel strike and toe off Neurological: Oriented to person, place, time and situation. Thought process intact. No gait abnormalities appreciated. Psychiatric: Appropriate mood and affect. Good judgment and insight. Resp Effort & Inspection: normal respiratory effort, able to speak in complete sentences, normal respiratory pattern, no audible wheezes and no cough Cardio Jugular venous distension: no JVD GI Inspection: Yes normal to inspection Extrem Other: Good range of motion of bilateral shoulder joints. No signs of shoulder exam evident of rotator cuff tear. No signs of frozen shoulder. No cracking on palpation. No crepitus with motion. Assessment & Plan Assessment & Plan (1) Osteoarthritis of knees, bilateral: Code(s): M17.0 - Bilateral primary osteoarthritis of knee Category: Medical (2) Spondylosis of lumbar spine: Code(s): M47.816 - Spondylosis without myelopathy or radiculopathy, lumbar region Category: Medical (3) Chronic pain syndrome: Code(s): G89.4 - Chronic pain syndrome Category: Medical (4) Bilateral shoulder region arthritis: Code(s): M19.011 - Primary osteoarthritis, right shoulder; M19.012 - Primary osteoarthritis, left shoulder Category: Medical Plan Masspat was reviewed and without concerns. No obvious signs of diversion, abuse or misuse of the opioid medications. Will send in prescription for Oxycodone 5mg po TID with an advanced date of 10/05/2023 Diagnosed with KYLE. Medicare does not cover the cost of CPAP machine because it is mild. Narcan is prescribed on 04/13/2023. Her relatives are aware of function and the way to use it. Her pain is getting worse and she would like me to repeat sprint PNS for her. I will schedule her for the 2 procedures 2 weeks apart under sedation in the operating room. Medications: Refilled oxycodone Partial Fill upon patient request. 5 mg PO TID PRN 90 tabs 0RF pain 30 days Patient Instructions: I here by testify that I spent 30 minutes in conversation with this patient as well as planning her care and organizing this note. Coding Level of Care Code Est Pt Level 4 (56447) Diagnoses Osteoarthritis of knees, bilateral M17.0 Spondylosis of lumbar spine M47.816 Chronic pain syndrome G89.4 Bilateral shoulder region arthritis M19.011; M19.012
[2023-09-07 11:02] VITALS: BP 131/77; PULSE 81; RESP 14; O2SAT 95
== END 2023-09-07 11:12 | disposition home or self-care (01) ==
PROVIDERS: PCP Internal Medicine; Visit Provider Anesthesiology
DX: G89.4 Chronic pain syndrome (principal); M17.0 Bilateral primary osteoarthritis of knee; M47.816 Spondylosis without myelopathy or radiculopathy, lumbar region; M19.011 Primary osteoarthritis, right shoulder; M19.012 Primary osteoarthritis, left shoulder
CPT/HCPCS: 99214

== ENCOUNTER → 2023-09-07 10:57 | Outpatient (BNVA) | payer MEDICARE, SELFPAY | PROVIDERS: PCP Internal Medicine; Visit Provider Anesthesiology | DX: G89.4 Chronic pain syndrome (principal); M17.0 Bilateral primary osteoarthritis of knee; M47.816 Spondylosis without myelopathy or radiculopathy, lumbar region; M19.011 Primary osteoarthritis, right shoulder; M19.012 Primary osteoarthritis, left shoulder; Z79.891 Long term (current) use of opiate analgesic | CPT/HCPCS: 99212 ==

== ENCOUNTER 2023-10-05 10:52 | Outpatient (AMB) | payer MEDICARE, SELFPAY ==
[2023-10-05 10:56] VITALS: BP 130/68; PULSE 73; O2SAT 95; BMI 25.4
--- NOTE | 2023-10-05 10:56 | MHC.OFFVIS ---
Vital Signs 10/05/23 10:56 Height 5 ft 2 in Weight 139 lb BMI 25.4 BP 130/68 Blood Pressure Location Rt brachial Position Sitting Pulse 73 Pulse Source Pulse Oximeter Pulse Oximetry (%) 95 Oxygen Delivery Method Room Air Intake Visit Reasons: PILL COUNT Intake Note: Marilyn is a 72 year old female who presents to the office today for a pill count. Pt states she took a pill at 8:00am this morning. Allergies sulfamethoxazole [From Bactrim] Allergy (Verified 10/05/23 10:58) anaphylaxis trimethoprim [From Bactrim] Allergy (Verified 10/05/23 10:58) anaphylaxis HPI Comments Details: Marilyn is a very pleasant 71 year old female who presents to the office for follow up chronic pain and chronic opioid therapy management. She presented today for pill count she is on oxycodone 5 mg t.i.d. she presented today for the pill count: She does not supposed to have any pills in her possession. She has 5 pills in her possession. She has prescription waiting for her for 10/05/2023 and her pharmacy. 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 She is scheduled for sprint PNS she would like to repeat the procedure. She reports her pain is 6/10. She reports that her pain is getting worse. She has obstructive sleep apnea. She has Narcan prescribed for her at home. The medication is stored her household and her relatives know how to use it. Sprint PNS in November of 2022 resulted on very good prolonged pain relief up to 8-9 months. [facility] Medical History (Updated 03/16/23 @ 10:38 by Goran Crook MD) Finger pain, left Patent foramen ovale Migraine Hypothyroid HTN (hypertension) Chronic pain syndrome Spondylosis of lumbar spine Osteoarthritis of knees, bilateral Surgical History (Updated 11/05/22 @ 12:58 by Zulay Raygoza RN) History of back surgery Hx of section Hx laparoscopic cholecystectomy Social History Patient Tobacco Use Status: Never used Tobacco Second Hand Smoke Exposure: No Review of Systems Const All systems reviewed & are unremarkable except as noted in HPI and below Physical Exam Vital Signs: Last Vital Signs Pulse 73 10/05/23 10:56 BP 130/68 10/05/23 10:56 Pulse Ox 95 10/05/23 10:56 Oxygen Delivery Method Room Air 10/05/23 10:56 BMI result Body Mass Index 25.4 General: awake, alert, oriented. Answers questions appropriately. Fully engaged in examination. Skin: warm, dry, intact HEENT: Normocephalic. Hearing intact. Cardiac: External chest normal in appearance. Respiratory: No cough, audible wheezing or stridor. Abdomen: without gross distension. MS: No obvious swelling or deformities. Able to transition from sit to stand unassisted. Ambulates with bilaterally normal heel strike and toe off Neurological: Oriented to person, place, time and situation. Thought process intact. No gait abnormalities appreciated. Psychiatric: Appropriate mood and affect. Good judgment and insight. Resp Effort & Inspection: normal respiratory effort, able to speak in complete sentences, normal respiratory pattern, no audible wheezes and no cough Cardio Jugular venous distension: no JVD GI Inspection: Yes normal to inspection Extrem Other: Good range of motion of bilateral shoulder joints. No signs of shoulder exam evident of rotator cuff tear. No signs of frozen shoulder. No cracking on palpation. No crepitus with motion. Assessment & Plan Assessment & Plan (1) Osteoarthritis of knees, bilateral: Code(s): M17.0 - Bilateral primary osteoarthritis of knee Category: Medical (2) Spondylosis of lumbar spine: Code(s): M47.816 - Spondylosis without myelopathy or radiculopathy, lumbar region Category: Medical (3) Chronic pain syndrome: Code(s): G89.4 - Chronic pain syndrome Category: Medical (4) Bilateral shoulder region arthritis: Code(s): M19.011 - Primary osteoarthritis, right shoulder; M19.012 - Primary osteoarthritis, left shoulder Category: Medical Plan Masspat was reviewed and without concerns. No obvious signs of diversion, abuse or misuse of the opioid medications. Oxycodone 5mg po TID available as of today 10/05/2023 Diagnosed with KYLE. Medicare does not cover the cost of CPAP machine because it is mild. Narcan is prescribed on 04/13/2023. Her relatives are aware of function and the way to use it. She is scheduled for repeated sprint PNS. Coding Level of Care Code Est Pt Level 3 (00378) Diagnoses Osteoarthritis of knees, bilateral M17.0 Spondylosis of lumbar spine M47.816 Chronic pain syndrome G89.4 Bilateral shoulder region arthritis M19.011; M19.012
== END 2023-10-05 11:32 | disposition home or self-care (01) ==
PROVIDERS: PCP Internal Medicine; Visit Provider Anesthesiology
DX: M17.0 Bilateral primary osteoarthritis of knee (principal); M47.816 Spondylosis without myelopathy or radiculopathy, lumbar region; G89.4 Chronic pain syndrome; M19.011 Primary osteoarthritis, right shoulder; M19.012 Primary osteoarthritis, left shoulder
CPT/HCPCS: 99213

== ENCOUNTER → 2023-10-05 10:52 | Outpatient (BNVA) | payer MEDICARE, SELFPAY | PROVIDERS: PCP Internal Medicine; Visit Provider Anesthesiology | DX: Z51.81 Encounter for therapeutic drug level monitoring (principal); F11.20 Opioid dependence, uncomplicated; M17.0 Bilateral primary osteoarthritis of knee; M47.816 Spondylosis without myelopathy or radiculopathy, lumbar region; M19.011 Primary osteoarthritis, right shoulder; M19.012 Primary osteoarthritis, left shoulder; G89.4 Chronic pain syndrome | CPT/HCPCS: 99212 ==

== ENCOUNTER 2023-11-08 14:46 | Outpatient (AMB) | payer MEDICARE, SELFPAY ==
[2023-11-08 15:05] VITALS: BP 143/71; PULSE 79; O2SAT 96; BMI 25.4
--- NOTE | 2023-11-08 15:05 | A.OFFVIS_ITS ---
Vital Signs 11/08/23 15:05 Height 5 ft 2 in Weight 139 lb BMI 25.4 BP 143/71 H Blood Pressure Location Lt brachial Position Sitting Pulse 79 Pulse Source Pulse Oximeter Pulse Oximetry (%) 96 Oxygen Delivery Method Room Air Intake Visit Reasons: pill count Allergies sulfamethoxazole [From Bactrim] Allergy (Verified 11/08/23 15:05) anaphylaxis trimethoprim [From Bactrim] Allergy (Verified 11/08/23 15:05) anaphylaxis Medication List - Last Reconciled 11/08/23 by Nicole Foley amlodipine 5 mg PO BEDTIME cyclobenzaprine 10 mg PO TID levothyroxine 125 mcg PO DAILY lisinopril 10 mg PO DAILY naloxone 4 mg/actuation 4 mg intranasal Q3M PRN oxycodone 5 mg PO TID PRN 30 days trazodone 100 mg PO BEDTIME HPI Comments Details: Marilyn is a very pleasant 72 year old female who presents to the office for follow up chronic pain and chronic opioid therapy management. Patient is prescribed Oxycodone 5mg po TID PRN. Patient arrived today with the expectation of having 0 pills, she presented 0 pills which were counted in the presence of two staff members and returned to the patient in the original prescription bottle. This demonstrates responsible attitude toward patient's opioid medications. Pain is reported today as 8/10 and last dose of pain medication was taken at 08:00 this morning. Patient denies side effects including somnolence, constipation, itching, dyspnea, rash, dizziness or weakness. Sprint PNS appointment pending. Prior: Marilyn is a very pleasant 71 year old female who presents to the office for follow up chronic pain and chronic opioid therapy management. She presented today for pill count she is on oxycodone 5 mg t.i.d. she presented today for the pill count: She does not supposed to have any pills in her possession. She has 5 pills in her possession. She has prescription waiting for her for 10/05/2023 and her pharmacy. 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 She is scheduled for sprint PNS she would like to repeat the procedure. She reports her pain is 6/10. She reports that her pain is getting worse. She has obstructive sleep apnea. She has Narcan prescribed for her at home. The medication is stored her household and her relatives know how to use it. Sprint PNS in November of 2022 resulted on very good prolonged pain relief up to 8-9 months. [facility] Medical History (Updated 03/16/23 @ 10:38 by Goran Crook MD) Finger pain, left Patent foramen ovale Migraine Hypothyroid HTN (hypertension) Chronic pain syndrome Spondylosis of lumbar spine Osteoarthritis of knees, bilateral Surgical History (Updated 11/05/22 @ 12:58 by Zulay Raygoza RN) History of back surgery Hx of section Hx laparoscopic cholecystectomy Social History Patient Tobacco Use Status: Never used Tobacco Second Hand Smoke Exposure: No Review of Systems Const All systems reviewed & are unremarkable except as noted in HPI and below Physical Exam Vital Signs: Last Vital Signs Pulse 79 11/08/23 15:05 BP 143/71 H 11/08/23 15:05 Pulse Ox 96 11/08/23 15:05 Oxygen Delivery Method Room Air 11/08/23 15:05 BMI result Body Mass Index 25.4 General: awake, alert, oriented. Answers questions appropriately. Fully engaged in examination. Skin: warm, dry, intact HEENT: Normocephalic. Hearing intact. Cardiac: External chest normal in appearance. Respiratory: No cough, audible wheezing or stridor. Abdomen: without gross distension. MS: No obvious swelling or deformities. Able to transition from sit to stand unassisted. Ambulates with bilaterally normal heel strike and toe off Neurological: Oriented to person, place, time and situation. Thought process intact. No gait abnormalities appreciated. Psychiatric: Appropriate mood and affect. Good judgment and insight. Results Reviewed Results Reviewed: MRI lumbar spine 08/24/2018.: Upper lumbar dextroscoliosis. Lower worst lumbar like vertebral body is a transitional segment and is being referred to as S1. S1 is to is a transitional intervertebral disc space and there is no significant canal or neural foraminal compromise at S1-S2 level. Lumbar spine is relative anatomic alignment in sagittal plane. Vertebral body heights are well maintained. There is no spondylosis or spondylolisthesis. The conus terminates at L1-L2 and unremarkable in morphology. No evidence of arachnoiditis the feel inter min alley and intradural nerves roots appear within normal limits. L5-S1: There is evidence of previous a LIF procedure at this level with metallic artifact in the intervertebral disc space with extensive type 2 marrow signal changes along the endplates. There is no significant facet arthrosis and there is no significant canal or neural foraminal stenosis. Mild and planed osteophyte noted on the right minimally encroaching on the inferior right neural foraminal is noted. L4-5: Severe disc space narrowing is noted with diffuse intradiscal high T2 signal intensity with extensive Schmorl's nodes for may hansen and endplate marrow edema with enhancement along the endplates within the adjustment bone marrow which could be secondary to type 1 marrow signal changes. This finding could be secondary to severe discogenic degenerative changes but they also can be spondyloarthropathy spondyloarthritis. Infectious decide is osteomyelitis is considered less likely. There is concentric disc osteophyte complex slightly asymmetric to the right with [id number] flattening of the dural sac and there is prominent dural epidural fat pad and ligamentum flavum thickening with moderate right-sided and mild left-sided facet arthrosis. There is affv-cu-jddeifei central canal stenosis without significant lateral recess stenosis and there is drgq-fi-ijftwnsb bilateral neural foraminal stenosis without neural impingement. There is some marrow edema on both sides of the right L4-L5 facet joints consistent with active facet inflammatory changes. There are small bilateral facet joint effusions. L3-L4 disc space height is mildly narrowed on the left with normal disc signal. There is a mild left paramedial disc protrusion with slight flattening of the left side of the dural sac without significant spondylosis. There is mild facet arthrosis and ligamentum flavum thickening with prominent dorsal epidural fat pad without significant canal or neural foraminal stenosis. L2-L3 disc space height is minimally narrowed on the left with normal disc signal and no significant disc bulge or herniation. No significant spondylosis facet arthrosis canal or neural foraminal stenosis. L1-L2 moderate to severe disc space narrowing is noted with Schmorl's nodes disc desiccation and predominantly type 2 degenerative bone marrow signal changes along the endplates with anterior marginal spondylosis. There is a mild left central to left paramedian disc protrusion with slight flattening of the dural sac on the left. No significant facet arthrosis canal or neural foraminal stenosis. Impression 1. Lumbar dextroscoliosis 2. Status post ALIF procedure at L5-S1 with S1 being transitional level with mild right posterior lateral in plane spurring without significant canal or foraminal compromise. 3. Severe disc space narrowing with intradiscal disc changes extensive Schmorl node formation and reactive marrow edema with enhancement along the endplates at L4-5. Concentric endplate spurring is also noted. These findings can be secondary to spondyloarthritis with severe discogenic degenerative changes and are associated with bilateral facet arthrosis right more than left with probable active inflammatory changes in the right facet joint as detailed above. Xrpx-ol-jfglruii central canal stenosis and xnxa-np-geikizwh bilateral neural foraminal stenosis at this level without neural impingement. Suggest clinical follow-up and clinical correlation with inflammatory markers and CBC. Discogenic degenerative changes at L1-L2 with spondylosis and mild left paramedial disc protrusion. Mild left paramedial disc protrusion at L3-L4. Assessment & Plan Assessment & Plan (1) Osteoarthritis of knees, bilateral: Code(s): M17.0 - Bilateral primary osteoarthritis of knee Category: Medical (2) Spondylosis of lumbar spine: Code(s): M47.816 - Spondylosis without myelopathy or radiculopathy, lumbar region Category: Medical (3) Chronic pain syndrome: Code(s): G89.4 - Chronic pain syndrome Category: Medical Plan Masspat was reviewed and without concerns. No obvious signs of diversion, abuse or misuse of the opioid medications. Will send in prescription for Oxycodone 5mg po TID She has narcan at home, family trained in use All questions and concerns have been answered and patient agrees with the plan. Patient to follow-up in the office as scheduled for Sprint device placement. Coding Level of Care Code Tele Est Pt Level 4 (94375) Complex EM visit Add On G2211 Diagnoses Osteoarthritis of knees, bilateral M17.0 Spondylosis of lumbar spine M47.816 Chronic pain syndrome G89.4
== END 2023-11-08 15:39 | disposition home or self-care (01) ==
PROVIDERS: PCP Internal Medicine; Visit Provider Registered Nurse Emergency
DX: G89.4 Chronic pain syndrome (principal); M17.0 Bilateral primary osteoarthritis of knee; M47.816 Spondylosis without myelopathy or radiculopathy, lumbar region; Z79.891 Long term (current) use of opiate analgesic
CPT/HCPCS: 99214; G2211

== ENCOUNTER → 2023-11-08 14:46 | Outpatient (BNVA) | payer MEDICARE, SELFPAY | PROVIDERS: PCP Internal Medicine; Visit Provider Registered Nurse Emergency | DX: Z51.81 Encounter for therapeutic drug level monitoring (principal); F11.20 Opioid dependence, uncomplicated; M17.0 Bilateral primary osteoarthritis of knee; M47.816 Spondylosis without myelopathy or radiculopathy, lumbar region; G89.4 Chronic pain syndrome | CPT/HCPCS: 99212 ==

== ENCOUNTER 2023-12-01 10:23 | Outpatient (AMB) | payer MEDICARE, SELFPAY ==
--- NOTE | 2023-12-01 10:47 | A.OFFVIS_ITS ---
Vital Signs 12/01/23 10:59 Height 5 ft 2 in Weight 136 lb 8 oz BMI 25.0 BP 140/77 H Blood Pressure Location Lt brachial Position Sitting Respiration 14 Pulse 80 Pulse Source Pulse Oximeter Pulse Oximetry (%) 96 Oxygen Delivery Method Room Air Intake Visit Reasons: PILL COUNT Intake Note: Patient comes in for pill count. Reports pain 6/10. Allergies sulfamethoxazole [From Bactrim] Allergy (Verified 12/01/23 11:00) anaphylaxis trimethoprim [From Bactrim] Allergy (Verified 12/01/23 11:00) anaphylaxis HPI Comments Details: Marilyn is a very pleasant 72 year old female who presents to the office for follow up chronic pain and chronic opioid therapy management. Patient is prescribed Oxycodone 5mg po TID PRN. Patient arrived today with the expectation of having 21 pills, she presented 22 pills which were counted in the presence of two staff members and returned to the patient in the original prescription bottle. This demonstrates responsible attitude toward patient's opioid medications. Pain is reported today as 6/10 and last dose of pain medication was taken at 09:00 this morning. Patient denies side effects including somnolence, constipation, itching, dyspnea, rash, dizziness or weakness. Sprint PNS appointment scheduled for 12/13/2023 Prior: Marilyn is a very pleasant 71 year old female who presents to the office for follow up chronic pain and chronic opioid therapy management. She presented today for pill count she is on oxycodone 5 mg t.i.d. she presented today for the pill count: She does not supposed to have any pills in her possession. She has 5 pills in her possession. She has prescription waiting for her for 10/05/2023 and her pharmacy. 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 She is scheduled for sprint PNS she would like to repeat the procedure. She reports her pain is 6/10. She reports that her pain is getting worse. She has obstructive sleep apnea. She has Narcan prescribed for her at home. The medication is stored her household and her relatives know how to use it. Sprint PNS in November of 2022 resulted on very good prolonged pain relief up to 8-9 months. [facility] Medical History (Updated 03/16/23 @ 10:38 by Goran Crook MD) Finger pain, left Patent foramen ovale Migraine Hypothyroid HTN (hypertension) Chronic pain syndrome Spondylosis of lumbar spine Osteoarthritis of knees, bilateral Surgical History (Updated 11/05/22 @ 12:58 by Zulay Raygoza RN) History of back surgery Hx of section Hx laparoscopic cholecystectomy Social History Patient Tobacco Use Status: Never used Tobacco Second Hand Smoke Exposure: No Review of Systems Const All systems reviewed & are unremarkable except as noted in HPI and below Physical Exam Vital Signs: Last Vital Signs Pulse 80 12/01/23 10:59 Resp 14 12/01/23 10:59 BP 140/77 H 12/01/23 10:59 Pulse Ox 96 12/01/23 10:59 Oxygen Delivery Method Room Air 12/01/23 10:59 BMI result Body Mass Index 25.0 General: awake, alert, oriented. Answers questions appropriately. Fully engaged in examination. Skin: warm, dry, intact HEENT: Normocephalic. Hearing intact. Cardiac: External chest normal in appearance. Respiratory: No cough, audible wheezing or stridor. Abdomen: without gross distension. MS: No obvious swelling or deformities. Able to transition from sit to stand unassisted. Ambulates with bilaterally normal heel strike and toe off Neurological: Oriented to person, place, time and situation. Thought process intact. No gait abnormalities appreciated. Psychiatric: Appropriate mood and affect. Good judgment and insight. Resp Effort & Inspection: normal respiratory effort, able to speak in complete sentences, normal respiratory pattern, no audible wheezes and no cough Cardio Jugular venous distension: no JVD GI Inspection: Yes normal to inspection Extrem Other: Good range of motion of bilateral shoulder joints. No signs of shoulder exam evident of rotator cuff tear. No signs of frozen shoulder. No cracking on palpation. No crepitus with motion. Assessment & Plan Assessment & Plan (1) Osteoarthritis of knees, bilateral: Code(s): M17.0 - Bilateral primary osteoarthritis of knee Category: Medical (2) Spondylosis of lumbar spine: Code(s): M47.816 - Spondylosis without myelopathy or radiculopathy, lumbar region Category: Medical (3) Chronic pain syndrome: Code(s): G89.4 - Chronic pain syndrome Category: Medical Plan Masspat was reviewed and without concerns. No obvious signs of diversion, abuse or misuse of the opioid medications. Will send in prescription for Oxycodone 5mg po TID the prescription will be due on 12/08/2023. She has narcan at home, family understand the use of Narcan. All questions and concerns have been answered and patient agrees with the plan. Sprint PNS is scheduled on 12/13/2023 Medications: Refilled oxycodone Partial Fill upon patient request. 5 mg PO TID PRN 90 tabs 0RF pain 30 days Coding Level of Care Code Est Pt Level 3 (07882) Diagnoses Osteoarthritis of knees, bilateral M17.0 Spondylosis of lumbar spine M47.816 Chronic pain syndrome G89.4
[2023-12-01 10:59] VITALS: BP 140/77; PULSE 80; RESP 14; O2SAT 96; BMI 25.0
== END 2023-12-01 10:56 | disposition home or self-care (01) ==
PROVIDERS: PCP Internal Medicine; Visit Provider Anesthesiology
DX: M17.0 Bilateral primary osteoarthritis of knee (principal); M47.816 Spondylosis without myelopathy or radiculopathy, lumbar region; G89.4 Chronic pain syndrome
CPT/HCPCS: 99213

== ENCOUNTER → 2023-12-01 10:23 | Outpatient (BNVA) | payer MEDICARE, SELFPAY | PROVIDERS: PCP Internal Medicine; Visit Provider Anesthesiology | DX: M17.0 Bilateral primary osteoarthritis of knee (principal); M47.816 Spondylosis without myelopathy or radiculopathy, lumbar region; G89.4 Chronic pain syndrome; Z51.81 Encounter for therapeutic drug level monitoring; Z79.891 Long term (current) use of opiate analgesic | CPT/HCPCS: 99212 ==

== ENCOUNTER 2023-12-13 06:02 | Outpatient (REF) | payer MEDICARE, SELFPAY | END 2023-12-13 06:03 | disposition home or self-care (01) | LOC: CF 06:02 | PROVIDERS: Visit Provider Anesthesiology | DX: M47.816 Spondylosis without myelopathy or radiculopathy, lumbar region (principal); M17.0 Bilateral primary osteoarthritis of knee; G89.4 Chronic pain syndrome; Z45.42 Encounter for adjustment and management of neurostimulator | CPT/HCPCS: 64555; J2003 ==

== ENCOUNTER 2023-12-13 07:25 | Outpatient (AMB) | payer MEDICARE, SELFPAY ==
[2023-12-13 07:30] VITALS: BP 141/64; PULSE 75; O2SAT 96
--- NOTE | 2023-12-13 07:34 | MHC.OFFVIS ---
Vital Signs 12/13/23 07:30 12/13/23 08:01 BP 141/64 H Blood Pressure Location Lt brachial Position Sitting Pulse 75 Pulse Source Pulse Oximeter Pulse Oximetry (%) 96 Oxygen Delivery Method Room Air Comment Pre-op Post-op Intake Visit Reasons: RIGHT L5 SPRINT PNS TRIAL Allergies sulfamethoxazole [From Bactrim] Allergy (Verified 12/13/23 08:01) anaphylaxis trimethoprim [From Bactrim] Allergy (Verified 12/13/23 08:01) anaphylaxis Medication List - Last Reconciled 12/13/23 by Nicole Foley amlodipine 5 mg PO BEDTIME cyclobenzaprine 10 mg PO TID levothyroxine 125 mcg PO DAILY lisinopril 10 mg PO DAILY naloxone 4 mg/actuation 4 mg intranasal Q3M PRN oxycodone 5 mg PO TID PRN 30 days trazodone 100 mg PO BEDTIME PFSH Medical History (Updated 03/16/23 @ 10:38 by Goran Crook MD) Finger pain, left Patent foramen ovale Migraine Hypothyroid HTN (hypertension) Chronic pain syndrome Spondylosis of lumbar spine Osteoarthritis of knees, bilateral Surgical History (Updated 11/05/22 @ 12:58 by Zulay Raygoza RN) History of back surgery Hx of section Hx laparoscopic cholecystectomy Social History Patient Tobacco Use Status: Never used Tobacco Second Hand Smoke Exposure: No Physical Exam Vital Signs: Last Vital Signs Pulse 75 12/13/23 07:30 BP 141/64 H 12/13/23 07:30 Pulse Ox 96 12/13/23 07:30 Oxygen Delivery Method Room Air 12/13/23 07:30 Assessment & Plan Assessment & Plan (1) Osteoarthritis of knees, bilateral: Code(s): M17.0 - Bilateral primary osteoarthritis of knee Category: Medical (2) Spondylosis of lumbar spine: Code(s): M47.816 - Spondylosis without myelopathy or radiculopathy, lumbar region Category: Medical (3) Chronic pain syndrome: Code(s): G89.4 - Chronic pain syndrome Category: Medical Plan Percutaneous implantation of peripheral nerve stimulation Sprint system L5 right side. After the risks, benefits and alternatives were discussed with the patient and informed consent was obtained, patient was placed in the prone position and padded to foster comfort. Time out was performed delineating correct site and side of the procedure , name and of the patient, patient participated in time out procedure. C-arm was brought over the operating field and clear picture of the L5 lamina on the right was delineated on the screen. The upper central portion of the lamina was chosen as a target of the needle tip insertion . After identifying and marking the intended target, the skin around the planned entry point and the subcutaneous tissues were injected with local anesthetic forming skin wheal.. A percutaneous sleeve and stimulating probe lead introduction system were assembled, inserted and advanced through the skin wheal to the point of interest under C-arm view L5 right lamina., the introducer needle was delivered to a location in proximity to the nerve. Multiple stimulation parameters were used to deliver stimulation to the nerve in concert with stimulating at multiple positions around the nerve. The nerve target acquisition was confirmed noting generation of in the corresponding to the nerve being stimulated. Various electrical parameter combinations were tested, and the lead location was adjusted (physically relocated) until the patient indicated overlapping the distribution of the patient?s typical region of pain. The stimulating probe was removed from the introducer and a percutaneous lead was guided through the needle and delivered to a location in similar proximity to the nerve. Final location was verified with electrical stimulation. The introducer needle was removed, and the exposed end of the percutaneous lead was attached to an external stimulator unit. At the end of the case various electrical parameter combinations were again tested until the patient indicated paresthesia or muscle tension overlapping the distribution of the patient?s typical region of pain. After confirming that lead impedance was in the normal range, the external unit was detached, the needle was removed, and the lead was anchored at the skin. The lead was threaded into the connector block and electrical continuity and desired patient response was confirmed. The connector block was attached to the external stimulator unit. The site was covered with a sterile occlusive dressing and a image was taken to document final placement. Upon completion of the procedure the patient was taken outside the OR where she recovered uneventfully she went home without immediate complications. Orders: Orders [place] guidance in treatment room Today M47.816 - Spondylosis without myelopathy or radiculopathy, lumbar region Coding Level of Care Code Procedure Only Diagnoses Osteoarthritis of knees, bilateral M17.0 Spondylosis of lumbar spine M47.816 Chronic pain syndrome G89.4
== END 2023-12-13 08:06 | disposition home or self-care (01) ==
LOC: HO.PMCPRC 07:26
PROVIDERS: PCP Internal Medicine; Visit Provider Anesthesiology
DX: G89.4 Chronic pain syndrome (principal); M17.0 Bilateral primary osteoarthritis of knee; M47.816 Spondylosis without myelopathy or radiculopathy, lumbar region
CPT/HCPCS: 64555

== ENCOUNTER 2023-12-21 08:55 | Outpatient (AMB) | payer MEDICARE, SELFPAY ==
--- NOTE | 2023-12-21 08:56 | A.OFFVIS_ITS ---
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 She is also treated for her lower back pain with the sprint PNS. Sprint PNS on the right L5 accomplished on 12/13/2023. The patient is feeling well. The dressing was changed and it is without signs of inflammation or infection. The patient is scheduled for left L5 in 2 weeks. Prior: Marilyn is a very pleasant 71 year old female who presents to the office for follow up chronic pain and chronic opioid therapy management. She presented today for pill count she is on oxycodone 5 mg t.i.d. she presented today for the pill count: She does not supposed to have any pills in her possession. She has 5 pills in her possession. She has prescription waiting for her for 10/05/2023 and her pharmacy. She needs to go and bulk picker the script. She is scheduled for sprint PNS she would like to repeat the procedure. She reports her pain is 6/10. She reports that her pain is getting worse. She has obstructive sleep apnea. She has Narcan prescribed for her at home. The medication is stored her household and her relatives know how to use it. Sprint PNS in November of 2022 resulted on very good prolonged pain relief up t o 8-9 months. [facility] Medical History (Updated 03/16/23 @ 10:38 by Goran Crook MD) Finger pain, left Patent foramen ovale Migraine Hypothyroid HTN (hypertension) Chronic pain syndrome Spondylosis of lumbar spine Osteoarthritis of knees, bilateral Surgical History (Updated 11/05/22 @ 12:58 by Zulay Raygoza RN) History of back surgery Hx of section Hx laparoscopic cholecystectomy Social History Patient Tobacco Use Status: Never used Tobacco Second Hand Smoke Exposure: No Review of Systems Const All systems reviewed & are unremarkable except as noted in HPI and below Physical Exam Vital Signs: Last Vital Signs Pulse 75 12/21/23 09:03 BP 148/71 H 12/21/23 09:03 Pulse Ox 96 12/21/23 09:03 Oxygen Delivery Method Room Air 12/21/23 09:03 BMI result Body Mass Index 24.7 General: awake, alert, oriented. Answers questions appropriately. Fully engaged in examination. Skin: warm, dry, intact HEENT: Normocephalic. Hearing intact. Cardiac: External chest normal in appearance. Respiratory: No cough, audible wheezing or stridor. Abdomen: without gross distension. MS: No obvious swelling or deformities. Able to transition from sit to stand unassisted. Ambulates with bilaterally normal heel strike and toe off Neurological: Oriented to person, place, time and situation. Thought process intact. No gait abnormalities appreciated. Psychiatric: Appropriate mood and affect. Good judgment and insight. Resp Effort & Inspection: normal respiratory effort, able to speak in complete sentences, normal respiratory pattern, no audible wheezes and no cough Cardio Jugular venous distension: no JVD GI Inspection: Yes normal to inspection Extrem Other: Good range of motion of bilateral shoulder joints. No signs of shoulder exam evident of rotator cuff tear. No signs of frozen shoulder. No cracking on palpation. No crepitus with motion. Results Reviewed Results Reviewed: MRI lumbar spine 08/24/2018.: Upper lumbar dextroscoliosis. Lower worst lumbar like vertebral body is a transitional segment and is being referred to as S1. S1 is to is a transitional intervertebral disc space and there is no significant canal or neural foraminal compromise at S1-S2 level. Lumbar spine is relative anatomic alignment in sagittal plane. Vertebral body heights are well maintained. There is no spondylosis or spondylolisthesis. The conus terminates at L1-L2 and unremarkable in morphology. No evidence of arachnoiditis the feel inter min alley and intradural nerves roots appear within normal limits. L5-S1: There is evidence of previous a LIF procedure at this level with metallic artifact in the intervertebral disc space with extensive type 2 marrow signal changes along the endplates. There is no significant facet arthrosis and there is no significant canal or neural foraminal stenosis. Mild and planed osteophyte noted on the right minimally encroaching on the inferior right neural foraminal is noted. L4-5: Severe disc space narrowing is noted with diffuse intradiscal high T2 signal intensity with extensive Schmorl's nodes for may hansen and endplate marrow edema with enhancement along the endplates within the adjustment bone marrow which could be secondary to type 1 marrow signal changes. This finding could be secondary to severe discogenic degenerative changes but they also can be spo ndyloarthropathy spondyloarthritis. Infectious decide is osteomyelitis is considered less likely. There is concentric disc osteophyte complex slightly asymmetric to the right with [id number] flattening of the dural sac and there is prominent dural epidural fat pad and ligamentum flavum thickening with moderate right-sided and mild left-sided facet arthrosis. There is fhep-tf-[id number] central canal stenosis without significant lateral recess stenosis and there is oxgd-eu-vhoapjng bilateral neural foraminal stenosis without neural impingement. There is some marrow edema on both sides of the right L4-L5 facet joints consistent with active facet inflammatory changes. There are small bilateral facet joint effusions. L3-L4 disc space height is mildly narrowed on the left with normal disc signal. There is a mild left paramedial disc protrusion with slight flattening of the left side of the dural sac without significant spondylosis. There is mild facet arthrosis and ligamentum flavum thickening with prominent dorsal epidural fat pad without significant canal or neural foraminal stenosis. L2-L3 disc space height is minimally narrowed on the left with normal disc signal and no significant disc bulge or herniation. No significant spondylosis facet arthrosis canal or neural foraminal stenosis. L1-L2 moderate to severe disc space narrowing is noted with Schmorl's nodes disc desiccation and predominantly type 2 degenerative bone marrow signal changes along the endplates with anterior marginal spondylosis. There is a mild left central to left paramedian disc protrusion with slight flattening of the dural sac on the left. No significant facet arthrosis canal or neural foraminal stenosis. Impression 1. Lumbar dextroscoliosis 2. Status post ALIF procedure at L5-S1 with S1 being transitional level with mild right posterior lateral in plane spurring without significant canal or foraminal compromise. 3. Severe disc space narrowing with intradiscal disc changes extensive Schmorl node formation and reactive marrow edema with enhancement along the endplates at L4-5. Concentric endplate spurring is also noted. These findings can be sec ondary to spondyloarthritis with severe discogenic degenerative changes and are associated with bilateral facet arthrosis right more than left with probable active inflammatory changes in the right facet joint as detailed above. Izff-gs-nnjhnhkt central canal stenosis and lipr-ni-qcwodmmr bilateral neural foraminal stenosis at this level without neural impingement. Suggest clinical follow-up and clinical correlation with inflammatory markers and CBC. Discogenic degenerative changes at L1-L2 with spondylosis and mild left paramedial disc protrusion. Mild left paramedial disc protrusion at L3-L4. Assessment & Plan Assessment & Plan (1) Osteoarthritis of knees, bilateral: Code(s): M17.0 - Bilateral primary osteoarthritis of knee Category: Medical (2) Spondylosis of lumbar spine: Code(s): M47.816 - Spondylosis without myelopathy or radiculopathy, lumbar region Category: Medical (3) Chronic pain syndrome: Code(s): G89.4 - Chronic pain syndrome Category: Medical Plan Sprint PNS is performed on 12/13/2023 she already starting to feel pain relief. It was L5 placement. The patient will receive into weeks left L5. We will continue for 6 7 weeks after that. Patient also will continue with her regular pain medication refills. I will see her on the injection and after that for the pill count. Coding Level of Care Code Est Pt Level 3 (11578) Diagnoses Osteoarthritis of knees, bilateral M17.0 Spondylosis of lumbar spine M47.816 Chronic pain syndrome G89.4
[2023-12-21 09:03] VITALS: BP 148/71; PULSE 75; O2SAT 96; BMI 24.7
== END 2023-12-21 09:06 | disposition home or self-care (01) ==
PROVIDERS: PCP Internal Medicine; Visit Provider Anesthesiology
DX: M17.0 Bilateral primary osteoarthritis of knee (principal); M47.816 Spondylosis without myelopathy or radiculopathy, lumbar region; G89.4 Chronic pain syndrome
CPT/HCPCS: 99213

== ENCOUNTER → 2023-12-21 08:55 | Outpatient (BNVA) | payer MEDICARE, SELFPAY | PROVIDERS: PCP Internal Medicine; Visit Provider Anesthesiology | DX: M17.0 Bilateral primary osteoarthritis of knee (principal); M47.816 Spondylosis without myelopathy or radiculopathy, lumbar region; G89.4 Chronic pain syndrome; Z51.81 Encounter for therapeutic drug level monitoring; Z79.891 Long term (current) use of opiate analgesic | CPT/HCPCS: 99212 ==

== ENCOUNTER 2023-12-27 06:09 | Outpatient (REF) | payer MEDICARE, SELFPAY | END 2023-12-27 06:10 | disposition home or self-care (01) | LOC: CF 06:09 | PROVIDERS: Visit Provider Anesthesiology | DX: M47.816 Spondylosis without myelopathy or radiculopathy, lumbar region (principal); M17.0 Bilateral primary osteoarthritis of knee; G89.4 Chronic pain syndrome; Z45.42 Encounter for adjustment and management of neurostimulator | CPT/HCPCS: 64555; J2003 ==

== ENCOUNTER 2023-12-27 12:52 | Outpatient (AMB) | payer MEDICARE, SELFPAY ==
--- NOTE | 2023-12-27 12:58 | MHC.OFFVIS ---
Vital Signs 12/27/23 14:00 12/27/23 14:00 Height 5 ft 2 in 5 ft 2 in Weight 135 lb 135 lb BMI 24.7 24.7 BP 135/73 132/74 Blood Pressure Location Lt brachial Lt brachial Position Sitting Sitting Respiration 16 16 Pulse 74 77 Pulse Source Pulse Oximeter Pulse Oximeter Pulse Oximetry (%) 99 100 Oxygen Delivery Method Room Air Room Air Comment pre-op post-op Intake Visit Reasons: LEFT L5 SPRINT PNS TRIAL Allergies sulfamethoxazole [From Bactrim] Allergy (Verified 12/27/23 14:01) anaphylaxis trimethoprim [From Bactrim] Allergy (Verified 12/27/23 14:01) anaphylaxis PFSH Medical History (Updated 03/16/23 @ 10:38 by Goran Crook MD) Finger pain, left Patent foramen ovale Migraine Hypothyroid HTN (hypertension) Chronic pain syndrome Spondylosis of lumbar spine Osteoarthritis of knees, bilateral Surgical History (Updated 11/05/22 @ 12:58 by Zulay Raygoza RN) History of back surgery Hx of section Hx laparoscopic cholecystectomy Social History Patient Tobacco Use Status: Never used Tobacco Second Hand Smoke Exposure: No Physical Exam Vital Signs: Last Vital Signs Pulse 77 12/27/23 14:00 Resp 16 12/27/23 14:00 BP 132/74 12/27/23 14:00 Pulse Ox 100 12/27/23 14:00 Oxygen Delivery Method Room Air 12/27/23 14:00 BMI result Body Mass Index 24.7 Assessment & Plan Assessment & Plan (1) Osteoarthritis of knees, bilateral: Code(s): M17.0 - Bilateral primary osteoarthritis of knee Category: Medical (2) Spondylosis of lumbar spine: Code(s): M47.816 - Spondylosis without myelopathy or radiculopathy, lumbar region Category: Medical (3) Chronic pain syndrome: Code(s): G89.4 - Chronic pain syndrome Category: Medical Plan Percutaneous implantation of peripheral nerve stimulation Sprint system L5 left side as well as replacement of the dislodged L5 sprint PNS right side the risks, benefits and alternatives were discussed with the patient and informed consent was obtained, patient was placed in the prone position and padded to foster comfort. Time out was performed delineating correct site and side of the procedure , name and of the patient, patient participated in time out procedure. The lower back of the patient was prepped with ChloraPrep and draped with sterile self adhesive utility towels. C-arm was brought over the operating field and clear picture of the L5 lamina on the right was delineated on the screen. It was noted that the tip of the right-sided stimulation wire got dislodged and decision was made to replace the L5 wire in the right and simultaneous total perform the same procedure on the left. The right-sided wire was removed and the back was prepped with ChloraPrep and draped again with sterile utility towels. After that sterilely draped C-arm was again was brought over the operating field and sq picture of L5 vertebra was delineated on the screen. The upper central portion of the lamina was chosen as a target of the needle tip insertion . After identifying and marking the intended target, the skin around the planned entry point and the subcutaneous tissues were injected with local anesthetic forming skin wheal.. A percutaneous sleeve and stimulating probe lead introduction system were assembled, inserted and advanced through the skin wheal to the point of interest under C-arm view L5 right lamina., the introducer needle was delivered to a location in proximity to the nerve. Multiple stimulation parameters were used to deliver stimulation to the nerve in concert with stimulating at multiple positions around the nerve. The nerve target acquisition was confirmed noting generation of in the corresponding to the nerve being stimulated. Various electrical parameter combinations were tested, and the lead location was adjusted (physically relocated) until the patient indicated overlapping the distribution of the patient?s typical region of pain. The stimulating probe was removed from the introducer and a percutaneous lead was guided through the needle and delivered to a location in similar proximity to the nerve. Final location was verified with electrical stimulation. The introducer needle was removed, and the exposed end of the percutaneous lead was attached to an external stimulator unit. After that the procedure was repeated on L5 left lamina in the mirroring fashion. At the end of the case various electrical parameter combinations were again tested until the patient indicated paresthesia or muscle tension overlapping the distribution of the patient?s typical region of pain. After confirming that lead impedance was in the normal range, the external unit was detached, the needle was removed, and the lead was anchored at the skin. The leads were threaded into the connector block and electrical continuity and desired patient response was confirmed. The connector block was attached to the external stimulator unit. The site was covered with a sterile occlusive dressing and a image was taken to document final placement. Upon completion of the procedure the patient was taken outside the OR where she recovered uneventfully she went home without immediate complications. Orders: Orders FL guidance in treatment room Today M47.816 - Spondylosis without myelopathy or radiculopathy, lumbar region Coding Level of Care Code Procedure Only Diagnoses Osteoarthritis of knees, bilateral M17.0 Spondylosis of lumbar spine M47.816 Chronic pain syndrome G89.4
[2023-12-27 14:00] VITALS: BP 132/74; BP 135/73; PULSE 74; PULSE 77; RESP 16; O2SAT 100; O2SAT 99; BMI 24.7
== END 2023-12-27 13:56 | disposition home or self-care (01) ==
LOC: HO.PMCPRC 12:52
PROVIDERS: PCP Internal Medicine; Visit Provider Anesthesiology
DX: M47.816 Spondylosis without myelopathy or radiculopathy, lumbar region (principal); M17.0 Bilateral primary osteoarthritis of knee; G89.4 Chronic pain syndrome
CPT/HCPCS: 64555

== ENCOUNTER 2023-12-29 10:23 | Outpatient (AMB) | payer MEDICARE, SELFPAY ==
--- NOTE | 2023-12-29 10:32 | MHC.OFFVIS ---
Vital Signs 12/29/23 10:38 Height 5 ft 2 in Weight 145 lb BMI 26.5 BP 131/74 Blood Pressure Location Rt brachial Position Sitting Pulse 73 Pulse Source Pulse Oximeter Pulse Oximetry (%) 98 Oxygen Delivery Method Room Air Intake Visit Reasons: Pill Count Intake Note: Marilyn comes in today for a pill count to oxycodone, patient should have 27 tablets and presents with 29 tablets which she last took today 12/29/23 at 8am. 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 She is also treated for her axial lower back pain with this Sprint PNS. She recently underwent left L5 Sprint PNS and also revised right L4 Sprint PNS due to dislodgement on 12/27/[address] Crook. Patient reports good pain relief with peripheral nerve stimulation treatment with significant improvement in her daily activities and functioning, mobility, sleep, and social interactions. Patient takes oxycodone 5 mg t.i.d. p.r.n. She was expected to have#27 pills and in her possession presents with# 29 pills. She reports a bowel analgesia without significant side effects except occasional constipation which is relieved with dietary fiber, hydration, Metamucil or Smooth Move tea. Patient reports medication current regime allows her to be less symptomatic and more functional. Denies any fever or chills, abdominal pain, cough, shortness of breaths, chest pain, nausea, sedation, dizziness, or urinary retention. Prior: Marilyn is a very pleasant 71 year old female who presents to the office for follow up chronic pain and chronic opioid therapy management. She presented today for pill count she is on oxycodone 5 mg t.i.d. she presented today for the pill count: She does not supposed to have any pills in her possession. She has 5 pills in her possession. She has prescription waiting for her for 10/05/2023 and her pharmacy. 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 She is scheduled for sprint PNS she would like to repeat the procedure. She reports her pain is 6/10. She reports that her pain is getting worse. She has obstructive sleep apnea. She has Narcan prescribed for her at home. The medication is stored her household and her relatives know how to use it. Sprint PNS in November of 2022 resulted on very good prolonged pain relief up to 8-9 months. [facility] Medical History Finger pain, left Patent foramen ovale Migraine Hypothyroid HTN (hypertension) Chronic pain syndrome Spondylosis of lumbar spine Osteoarthritis of knees, bilateral Surgical History History of back surgery Hx of section Hx laparoscopic cholecystectomy Social History Patient Tobacco Use Status: Never used Tobacco Second Hand Smoke Exposure: No Review of Systems Const All systems reviewed & are unremarkable except as noted in HPI and below Physical Exam Vital Signs: Last Vital Signs Pulse 73 12/29/23 10:38 BP 131/74 12/29/23 10:38 Pulse Ox 98 12/29/23 10:38 Oxygen Delivery Method Room Air 12/29/23 10:38 BMI result Body Mass Index 26.5 General: awake, alert, oriented. Answers questions appropriately. Fully engaged in examination. Skin: warm, dry, intact HEENT: Normocephalic. Hearing intact. Cardiac: External chest normal in appearance. Respiratory: No cough, audible wheezing or stridor. Abdomen: without gross distension. MS: No obvious swelling or deformities. Able to transition from sit to stand unassisted. Ambulates with bilaterally normal heel strike and toe off Neurological: Oriented to person, place, time and situation. Thought process intact. No gait abnormalities appreciated. Psychiatric: Appropriate mood and affect. Good judgment and insight. Resp Effort & Inspection: normal respiratory effort, able to speak in complete sentences, normal respiratory pattern, no audible wheezes, no cough, no respiratory distress and symmetric chest movement Cardio Jugular venous distension: no JVD GI Inspection: Yes normal to inspection Extrem General: Yes capillary refill normal, Yes no clubbing, cyanosis or edema and Yes no calf tenderness Psych Appearance: grossly normal and well kempt Mental Status: mental status grossly normal Speech and movement: Normal speech and movement present and Clear speech present Affect: normal affect Attitude: cooperative Thought process: Normal thought process present Thought content: Normal thought content present, suicidality (none), no hallucinations and No Depressive thoughts present Insight: Good insight present (Psych) Judgement: Good judgement present (Psych) Results Reviewed Results Reviewed: MRI lumbar spine 08/24/2018.: Upper lumbar dextroscoliosis. Lower worst lumbar like vertebral body is a transitional segment and is being referred to as S1. S1 is to is a transitional intervertebral disc space and there is no significant canal or neural foraminal compromise at S1-S2 level. Lumbar spine is relative anatomic alignment in sagittal plane. Vertebral body heights are well maintained. There is no spondylosis or spondylolisthesis. The conus terminates at L1-L2 and unremarkable in morphology. No evidence of arachnoiditis the feel inter min alley and intradural nerves roots appear within normal limits. L5-S1: There is evidence of previous a LIF procedure at this level with metallic artifact in the intervertebral disc space with extensive type 2 marrow signal changes along the endplates. There is no significant facet arthrosis and there is no significant canal or neural foraminal stenosis. Mild and planed osteophyte noted on the right minimally encroaching on the inferior right neural foraminal is noted. L4-5: Severe disc space narrowing is noted with diffuse intradiscal high T2 signal intensity with extensive Schmorl's nodes for may hansen and endplate marrow edema with enhancement along the endplates within the adjustment bone marrow which could be secondary to type 1 marrow signal changes. This finding could be secondary to severe discogenic degenerative changes but they also can be spondyloarthropathy spondyloarthritis. Infectious decide is osteomyelitis is considered less likely. There is concentric disc osteophyte complex slightly asymmetric to the right with nsfj-sf-awjhdjhb flattening of the dural sac and there is prominent dural epidural fat pad and ligamentum flavum thickening with moderate right-sided and mild left-sided facet arthrosis. There is vejw-ho-zstgdexp central canal stenosis without significant lateral recess stenosis and there is hbdf-hr-bjssbxbn bilateral neural foraminal stenosis without neural impingement. There is some marrow edema on both sides of the right L4-L5 facet joints consistent with active facet inflammatory changes. There are small bilateral facet joint effusions. L3-L4 disc space height is mildly narrowed on the left with normal disc signal. There is a mild left paramedial disc protrusion with slight flattening of the left side of the dural sac without significant spondylosis. There is mild facet arthrosis and ligamentum flavum thickening with prominent dorsal epidural fat pad without significant canal or neural foraminal stenosis. L2-L3 disc space height is minimally narrowed on the left with normal disc signal and no significant disc bulge or herniation. No significant spondylosis facet arthrosis canal or neural foraminal stenosis. L1-L2 moderate to severe disc space narrowing is noted with Schmorl's nodes disc desiccation and predominantly type 2 degenerative bone marrow signal changes along the endplates with anterior marginal spondylosis. There is a mild left central to left paramedian disc protrusion with slight flattening of the dural sac on the left. No significant facet arthrosis canal or neural foraminal stenosis. Impression 1. Lumbar dextroscoliosis 2. Status post ALIF procedure at L5-S1 with S1 being transitional level with mild right posterior lateral in plane spurring without significant canal or foraminal compromise. 3. Severe disc space narrowing with intradiscal disc changes extensive Schmorl node formation and reactive marrow edema with enhancement along the endplates at L4-5. Concentric endplate spurring is also noted. These findings can be secondary to spondyloarthritis with severe discogenic degenerative changes and are associated with bilateral facet arthrosis right more than left with probable active inflammatory changes in the right facet joint as detailed above. Gxhp-mp-lhdopgtr central canal stenosis and wxxx-kv-tdwibcfx bilateral neural foraminal stenosis at this level without neural impingement. Suggest clinical follow-up and clinical correlation with inflammatory markers and CBC. Discogenic degenerative changes at L1-L2 with spondylosis and mild left paramedial disc protrusion. Mild left paramedial disc protrusion at L3-L4. 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 No obvious signs of diversion, abuse or misuse of the opioid medications. Will send in prescription for Oxycodone 5mg po TID with advanced date of 01/07/24. Patient has Narcan at home. All questions and concerns have been answered and patient agrees with the plan. Patient to follow-up in the office as scheduled for Sprint post op visit next Tuesday with Dr. Crook as scheduled. Medications: Refilled oxycodone Partial Fill upon patient request. 5 mg PO TID 30 days PRN 90 tabs 0RF pain G89.4 - Chronic pain syndrome, M17.0 - Bilateral primary osteoarthritis of knee, M19.011 - Primary osteoarthritis, right shoulder, M19.012 - Primary osteoarthritis, left shoulder, M47.816 - Spondylosis without myelopathy or radiculopathy, lumbar region, Z79.891 - [facility] (current) use of opiate analgesic Coding Level of Care Code Est Pt Level 4 (15686) Complex EM visit Add On G2211 Diagnoses Osteoarthritis of knees, bilateral M17.0 Spondylosis of lumbar spine M47.816 Chronic pain syndrome G89.4 Bilateral shoulder region arthritis M19.011; M19.012 Opioid contract exists Z79.891
[2023-12-29 10:38] VITALS: BP 131/74; PULSE 73; O2SAT 98; BMI 26.5
== END 2023-12-29 10:47 | disposition home or self-care (01) ==
PROVIDERS: PCP Internal Medicine; Visit Provider Nurse Practitioner Family
DX: M17.0 Bilateral primary osteoarthritis of knee (principal); M47.816 Spondylosis without myelopathy or radiculopathy, lumbar region; G89.4 Chronic pain syndrome; M19.011 Primary osteoarthritis, right shoulder; M19.012 Primary osteoarthritis, left shoulder; Z79.891 Long term (current) use of opiate analgesic
CPT/HCPCS: 99214; G2211

== ENCOUNTER → 2023-12-29 10:23 | Outpatient (BNVA) | payer MEDICARE, SELFPAY | PROVIDERS: PCP Internal Medicine; Visit Provider Nurse Practitioner Family | DX: M17.0 Bilateral primary osteoarthritis of knee (principal); M47.816 Spondylosis without myelopathy or radiculopathy, lumbar region; G89.4 Chronic pain syndrome; M19.011 Primary osteoarthritis, right shoulder; M19.012 Primary osteoarthritis, left shoulder; Z51.81 Encounter for therapeutic drug level monitoring; Z79.891 Long term (current) use of opiate analgesic; Z96.82 Presence of neurostimulator | CPT/HCPCS: 99212 ==

== ENCOUNTER 2024-01-02 08:54 | Outpatient (AMB) | payer MEDICARE, SELFPAY ==
--- NOTE | 2024-01-02 08:55 | A.OFFVIS_ITS ---
Vital Signs 01/02/24 09:03 01/02/24 09:03 Height 5 ft 2 in Weight 136 lb BMI 24.9 BP 152/72 H 133/61 Blood Pressure Location Rt brachial Lt brachial Position Sitting Sitting Pulse 82 82 Pulse Source Pulse Oximeter Pulse Oximeter Pulse Oximetry (%) 97 97 Oxygen Delivery Method Room Air Room Air Comment bp recheck Intake Visit Reasons: LEFT SPRINT L5 PNS TRIAL Intake Note: Pain today 06/14 [employer] Consultant Required: No Accompanied by: Self / Same As Patient Allergies sulfamethoxazole [From Bactrim] Allergy (Verified 01/02/24 09:04) anaphylaxis trimethoprim [From Bactrim] Allergy (Verified 01/02/24 09:04) anaphylaxis HPI Comments Details: Marilyn is back in my office after implantation of the bilateral sprint PNS L5. She received right-sided PNS implantation on L5 on 10/2023. However when she came for the addition of the left sided electrode on 12/26/2023 attention was attracted to the fact that the right electrode is almost completely dislodged and positioned nowhere near multifidus muscle. The decision was made to remove the right-sided electrode replace it with properly positioned right- sided electrode and give patient 1 more electrode on the left side. Today the patient is in the office for dressing change and follow-up. She is doing okay she reports significant pain relief, better mobility better activities of daily living good social interactions. She will continue for dressing changes either at home or with nurses in the office, she will come next time here for the pill count. The removal of the both electrodes will be scheduled on 02/09/2024. I discussed with the patient possibility of the next time switching her stimulator system to curonix PNS permanently placed in her lower back. This way whenever she feels like applying the stimulation the only thing need she needs to do is to apply the stimulating on 10 in a to the area of the implantable device. Prior: Marilyn is a very pleasant 71 year old female who presents to the office for follow up chronic pain and chronic opioid therapy management. She presented today for pill count she is on oxycodone 5 mg t.i.d. she presented today for the pill count: She does not supposed to have any pills in her possession. She has 5 pills in her possession. She has prescription waiting for her for 10/05/2023 and her pharmacy. 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 She is scheduled for sprint PNS she would like to repeat the procedure. She reports her pain is 6/10. She reports that her pain is getting worse. She has obstructive sleep apnea. She has Narcan prescribed for her at home. The medication is stored her household and her relatives know how to use it. Sprint PNS in November of 2022 resulted on very good prolonged pain relief up to 8-9 months. [facility] Medical History Finger pain, left Patent foramen ovale Migraine Hypothyroid HTN (hypertension) Chronic pain syndrome Spondylosis of lumbar spine Osteoarthritis of knees, bilateral Surgical History History of back surgery Hx of section Hx laparoscopic cholecystectomy Social History Patient Tobacco Use Status: Never used Tobacco Second Hand Smoke Exposure: No Review of Systems Const All systems reviewed & are unremarkable except as noted in HPI and below Physical Exam Vital Signs: Last Vital Signs Pulse 82 01/02/24 09:03 BP 133/61 01/02/24 09:03 Pulse Ox 97 01/02/24 09:03 Oxygen Delivery Method Room Air 01/02/24 09:03 BMI result Body Mass Index 24.9 General: awake, alert, oriented. Answers questions appropriately. Fully engaged in examination. Skin: warm, dry, intact HEENT: Normocephalic. Hearing intact. Cardiac: External chest normal in appearance. Respiratory: No cough, audible wheezing or stridor. Abdomen: without gross distension. MS: No obvious swelling or deformities. Able to transition from sit to stand unassisted. Ambulates with bilaterally normal heel strike and toe off Neurological: Oriented to person, place, time and situation. Thought process intact. No gait abnormalities appreciated. Psychiatric: Appropriate mood and affect. Good judgment and insight. Resp Effort & Inspection: normal respiratory effort, able to speak in complete sentences, normal respiratory pattern, no audible wheezes, no cough, no re spiratory distress and symmetric chest movement Cardio Jugular venous distension: no JVD GI Inspection: Yes normal to inspection Extrem General: Yes capillary refill normal, Yes no clubbing, cyanosis or edema and Yes no calf tenderness Psych Appearance: grossly normal and well kempt Mental Status: mental status grossly normal Speech and movement: Normal speech and movement present and Clear speech present Affect: normal affect Attitude: cooperative Thought process: Normal thought process present Thought content: Normal thought content present, suicidality (none), no hallucinations and No Depressive thoughts present Insight: Good insight present (Psych) Judgement: Good judgement present (Psych) Assessment & Plan Assessment & Plan (1) Osteoarthritis of knees, bilateral: Code(s): M17.0 - Bilateral primary osteoarthritis of knee Category: Medical (2) Spondylosis of lumbar spine: Code(s): M47.816 - Spondylosis without myelopathy or radiculopathy, lumbar region Category: Medical (3) Chronic pain syndrome: Code(s): G89.4 - Chronic pain syndrome Category: Medical (4) Bilateral shoulder region arthritis: Code(s): M19.011 - Primary osteoarthritis, right shoulder; M19.012 - Primary osteoarthritis, left shoulder Category: Medical (5) Opioid contract exists: Code(s): Z79.891 - [facility] (current) use of opiate analgesic Category: Medical Plan Implantation of bilateral L5 sprint PNS was done on 12/26/2023. Patient is doing well reports good pain relief from the device. The dressing was changed today. Next appointment is for the pill count. Electrodes removal will be done on 02/09/2024. Curonix PNS was discussed, next time she needs PNS we can perform psychological evaluation, and without a trial proceed to implantation of the cure on X device in bilateral L5 position. . Coding Level of Care Code Est Pt Level 3 (33935) Diagnoses Osteoarthritis of knees, bilateral M17.0 Spondylosis of lumbar spine M47.816 Chronic pain syndrome G89.4 Bilateral shoulder region arthritis M19.011; M19.012 Opioid contract exists Z79.891
[2024-01-02 09:03] VITALS: BP 133/61; BP 152/72; PULSE 82; O2SAT 97; BMI 24.9
== END 2024-01-02 09:08 | disposition home or self-care (01) ==
PROVIDERS: PCP Internal Medicine; Visit Provider Anesthesiology
DX: M17.0 Bilateral primary osteoarthritis of knee (principal); M47.816 Spondylosis without myelopathy or radiculopathy, lumbar region; G89.4 Chronic pain syndrome; M19.011 Primary osteoarthritis, right shoulder; M19.012 Primary osteoarthritis, left shoulder; Z79.891 Long term (current) use of opiate analgesic
CPT/HCPCS: 99213

== ENCOUNTER → 2024-01-02 08:54 | Outpatient (BNVA) | payer MEDICARE, SELFPAY | PROVIDERS: PCP Internal Medicine; Visit Provider Anesthesiology | DX: M17.0 Bilateral primary osteoarthritis of knee (principal); M47.816 Spondylosis without myelopathy or radiculopathy, lumbar region; M19.011 Primary osteoarthritis, right shoulder; M19.012 Primary osteoarthritis, left shoulder; G89.4 Chronic pain syndrome; Z79.891 Long term (current) use of opiate analgesic | CPT/HCPCS: 99212 ==

== ENCOUNTER 2024-01-26 10:21 | Outpatient (AMB) | payer MEDICARE, SELFPAY ==
--- NOTE | 2024-01-26 10:45 | MHC.OFFVIS ---
Vital Signs 01/26/24 10:51 Height 5 ft 2 in Weight 142 lb 4 oz BMI 26.0 BP 125/69 Blood Pressure Location Lt brachial Position Sitting Respiration 14 Pulse 82 Pulse Source Pulse Oximeter Pulse Oximetry (%) 96 Oxygen Delivery Method Room Air Intake Visit Reasons: Pill Count Intake Note: Patient comes in for pill count. Reports pain 4/10. Allergies sulfamethoxazole [From Bactrim] Allergy (Verified 01/26/24 10:53) anaphylaxis trimethoprim [From Bactrim] Allergy (Verified 01/26/24 10:53) anaphylaxis HPI Comments Details: Marilyn is back in my office for the pill count today. She reports low level of pain today 4/10. She reports better mobility better activities of daily living better social interactions. She continues to use sprint PNS. Pill count today is correct she supposed to have 36 pills in her possession. She presented with 38 pills. This demonstrates responsible attitude for opioid medication. . She received right-sided PNS implantation on L5 on 10/2023. However when she came for the addition of the left sided electrode on 12/26/2023 attention was attracted to the fact that the right electrode is almost completely dislodged and positioned nowhere near multifidus muscle. The decision was made to remove the right-sided electrode replace it with properly positioned right-sided electrode and give patient 1 more electrode on the left side. Today the patient is in the office for dressing change and follow-up. She is doing okay she reports significant pain relief, better mobility better activities of daily living good social interactions. I discussed with the patient possibility of the next time switching her stimulator system to curonix PNS permanently placed in her lower back. This way whenever she feels like applying the stimulation the only thing need she needs to do is to apply the stimulating on 10 in a to the area of the implantable device. Prior: Marilyn is a very pleasant 71 year old female who presents to the office for follow up chronic pain and chronic opioid therapy management. She presented today for pill count she is on oxycodone 5 mg t.i.d. she presented today for the pill count: She does not supposed to have any pills in her possession. She has 5 pills in her possession. She has prescription waiting for her for 10/05/2023 and her pharmacy. 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 She is scheduled for sprint PNS she would like to repeat the procedure. She reports her pain is 6/10. She reports that her pain is getting worse. She has obstructive sleep apnea. She has Narcan prescribed for her at home. The medication is stored her household and her relatives know how to use it. Sprint PNS in November of 2022 resulted on very good prolonged pain relief up to 8-9 months. [facility] Medical History Finger pain, left Patent foramen ovale Migraine Hypothyroid HTN (hypertension) Chronic pain syndrome Spondylosis of lumbar spine Osteoarthritis of knees, bilateral Surgical History History of back surgery Hx of section Hx laparoscopic cholecystectomy Social History Patient Tobacco Use Status: Never used Tobacco Second Hand Smoke Exposure: No Review of Systems Const All systems reviewed & are unremarkable except as noted in HPI and below Physical Exam Vital Signs: Last Vital Signs Pulse 82 01/26/24 10:51 Resp 14 01/26/24 10:51 BP 125/69 01/26/24 10:51 Pulse Ox 96 01/26/24 10:51 Oxygen Delivery Method Room Air 01/26/24 10:51 BMI result Body Mass Index 26.0 General: awake, alert, oriented. Answers questions appropriately. Fully engaged in examination. Skin: warm, dry, intact HEENT: Normocephalic. Hearing intact. Cardiac: External chest normal in appearance. Respiratory: No cough, audible wheezing or stridor. Abdomen: without gross distension. MS: No obvious swelling or deformities. Able to transition from sit to stand unassisted. Ambulates with bilaterally normal heel strike and toe off Neurological: Oriented to person, place, time and situation. Thought process intact. No gait abnormalities appreciated. Psychiatric: Appropriate mood and affect. Good judgment and insight. Resp Effort & Inspection: normal respiratory effort, able to speak in complete sentences, normal respiratory pattern, no audible wheezes, no cough, no respiratory distress and symmetric chest movement Cardio Jugular venous distension: no JVD GI Inspection: Yes normal to inspection Extrem General: Yes capillary refill normal, Yes no clubbing, cyanosis or edema and Yes no calf tenderness Psych Appearance: grossly normal and well kempt Mental Status: mental status grossly normal Speech and movement: Normal speech and movement present and Clear speech present Affect: normal affect Attitude: cooperative Thought process: Normal thought process present Thought content: Normal thought content present, suicidality (none), no hallucinations and No Depressive thoughts present Insight: Good insight present (Psych) Judgement: Good judgement present (Psych) Assessment & Plan Assessment & Plan (1) Osteoarthritis of knees, bilateral: Code(s): M17.0 - Bilateral primary osteoarthritis of knee Category: Medical (2) Spondylosis of lumbar spine: Code(s): M47.816 - Spondylosis without myelopathy or radiculopathy, lumbar region Category: Medical (3) Chronic pain syndrome: Code(s): G89.4 - Chronic pain syndrome Category: Medical (4) Bilateral shoulder region arthritis: Code(s): M19.011 - Primary osteoarthritis, right shoulder; M19.012 - Primary osteoarthritis, left shoulder Category: Medical (5) Opioid contract exists: Code(s): Z79.891 - [facility] (current) use of opiate analgesic Category: Medical Plan Implantation of bilateral L5 sprint PNS was done on 12/26/2023. Patient is doing well reports good pain relief from the device. The dressing was changed today. Pill count is correct today the prescription is due on 02/07/2024. Electrodes removal will be done on 02/09/2024. Curonix PNS was discussed, next time she needs PNS we can perform psychological evaluation, and without a trial proceed to implantation of the cure on X device in bilateral L5 position. . Medications: Refilled oxycodone Partial Fill upon patient request. 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
[2024-01-26 10:51] VITALS: BP 125/69; PULSE 82; RESP 14; O2SAT 96; BMI 26.0
== END 2024-01-26 10:52 | disposition home or self-care (01) ==
PROVIDERS: PCP Internal Medicine; Visit Provider Anesthesiology
DX: M17.0 Bilateral primary osteoarthritis of knee (principal); M47.816 Spondylosis without myelopathy or radiculopathy, lumbar region; G89.4 Chronic pain syndrome; M19.011 Primary osteoarthritis, right shoulder; M19.012 Primary osteoarthritis, left shoulder; Z79.891 Long term (current) use of opiate analgesic
CPT/HCPCS: 99213

== ENCOUNTER → 2024-01-26 10:21 | Outpatient (BNVA) | payer MEDICARE, SELFPAY | PROVIDERS: PCP Internal Medicine; Visit Provider Anesthesiology | DX: Z51.81 Encounter for therapeutic drug level monitoring (principal); M17.0 Bilateral primary osteoarthritis of knee; M47.816 Spondylosis without myelopathy or radiculopathy, lumbar region; M19.011 Primary osteoarthritis, right shoulder; M19.012 Primary osteoarthritis, left shoulder; G89.4 Chronic pain syndrome; Z79.891 Long term (current) use of opiate analgesic | CPT/HCPCS: 99212 ==

== ENCOUNTER 2024-02-09 10:45 | Outpatient (AMB) | payer MEDICARE, SELFPAY ==
--- NOTE | 2024-02-09 10:55 | A.OFFVIS_ITS ---
Vital Signs 02/09/24 11:11 Height 5 ft 2 in Weight 142 lb BMI 26.0 BP 127/68 Blood Pressure Location Lt brachial Position Sitting Pulse 80 Pulse Source Pulse Oximeter Pulse Oximetry (%) 99 Oxygen Delivery Method Room Air Intake Visit Reasons: REMOVAL LEFT L5 SPRINT Intake Note: Marilyn comes in today for right and left spring removal, Pain today 06/14 Scrap Breaker Required: No Accompanied by: Self / Same As Patient Allergies sulfamethoxazole [From Bactrim] Allergy (Verified 01/26/24 10:53) anaphylaxis trimethoprim [From Bactrim] Allergy (Verified 01/26/24 10:53) anaphylaxis HPI Comments Details: Marilyn is back in my office for the removal of the sprint peripheral nerve stimulation. She reports very good effect of the stimulation. Continues to take opioid medications. The leads were removed today and there redness no swelling no pathological discharge. Sterile Band-Aids were applied. Patient is scheduled for an appointment for pill count mid February. . She received right-sided PNS implantation on L5 on 10/2023. However when she came for the addition of the left sided electrode on 12/26/2023 attention was attracted to the fact that the right electrode is almost completely dislodged and positioned nowhere near multifidus muscle. The decision was made to remove the right-sided electrode replace it with properly positioned right- sided electrode and give patient 1 more electrode on the left side. Today the patient is in the office for dressing change and follow-up. She is doing okay she reports significant pain relief, better mobility better activities of daily living good social interactions. Prior: Marilyn is a very pleasant 71 year old female who presents to the office for follow up chronic pain and chronic opioid therapy management. She presented today for pill count she is on oxycodone 5 mg t.i.d. she presented today for the pill count: She does not supposed to have any pills in her possession. She has 5 pills in her possession. She has prescription waiting for her for 10/05/2023 and her pharmacy. 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 She is scheduled for sprint PNS she would like to repeat the procedure. She reports her pain is 6/10. She reports that her pain is getting worse. She has obstructive sleep apnea. She has Narcan prescribed for her at home. The medication is stored her household and her relatives know how to use it. Sprint PNS in November of 2022 resulted on very good prolonged pain relief up to 8-9 months. [facility] Medical History Finger pain, left Patent foramen ovale Migraine Hypothyroid HTN (hypertension) Chronic pain syndrome Spondylosis of lumbar spine Osteoarthritis of knees, bilateral Surgical History History of back surgery Hx of section Hx laparoscopic cholecystectomy Social History Patient Tobacco Use Status: Never used Tobacco Second Hand Smoke Exposure: No Review of Systems Const All systems reviewed & are unremarkable except as noted in HPI and below Physical Exam Vital Signs: Last Vital Signs Pulse 80 02/09/24 11:11 BP 127/68 02/09/24 11:11 Pulse Ox 99 02/09/24 11:11 Oxygen Delivery Method Room Air 02/09/24 11:11 BMI result Body Mass Index 26.0 General: awake, alert, oriented. Answers questions appropriately. Fully engaged in examination. Skin: warm, dry, intact HEENT: Normocephalic. Hearing intact. Cardiac: External chest normal in appearance. Respiratory: No cough, audible wheezing or stridor. Abdomen: without gross distension. MS: No obvious swelling or deformities. Able to transition from sit to stand unassisted. Ambulates with bilaterally normal heel strike and toe off Neurological: Oriented to person, place, time and situation. Thought process intact. No gait abnormalities appreciated. Psychiatric: Appropriate mood and affect. Good judgment and insight. Resp Effort & Inspection: normal respiratory effort, able to speak in complete sentences, normal respiratory pattern, no audible wheezes, no cough, no respiratory distress and symmetric chest movement Cardio Jugular venous distension: no JVD GI Inspection: Yes normal to inspection Extrem General: Yes capillary refill normal, Yes no clubbing, cyanosis or edema and Yes no calf tenderness Psych Appearance: grossly normal and well kempt Mental Status: mental status grossly normal Speech and movement: Normal speech and movement present and Clear speech present Affect: normal affect Attitude: cooperative Thought process: Normal thought process present Thought content: Normal thought content present, suicidality (none), no hallu cinations and No Depressive thoughts present Insight: Good insight present (Psych) Judgement: Good judgement present (Psych) Assessment & Plan Assessment & Plan (1) Osteoarthritis of knees, bilateral: Code(s): M17.0 - Bilateral primary osteoarthritis of knee Category: Medical (2) Spondylosis of lumbar spine: Code(s): M47.816 - Spondylosis without myelopathy or radiculopathy, lumbar region Category: Medical (3) Chronic pain syndrome: Code(s): G89.4 - Chronic pain syndrome Category: Medical (4) Bilateral shoulder region arthritis: Code(s): M19.011 - Primary osteoarthritis, right shoulder; M19.012 - Primary osteoarthritis, left shoulder Category: Medical (5) Opioid contract exists: Code(s): Z79.891 - long term care administrator (current) use of opiate analgesic Category: Medical Plan Implantation of bilateral L5 sprint PNS was done on 12/26/2023. Patient is doing well reports good pain relief from the device. The system was removed today. Description as above. The pill count is scheduled in the mid February. . Coding Level of Care Code Est Pt Level 3 (63329) Diagnoses Osteoarthritis of knees, bilateral M17.0 Spondylosis of lumbar spine M47.816 Chronic pain syndrome G89.4 Bilateral shoulder region arthritis M19.011; M19.012 Opioid contract exists Z79.891
[2024-02-09 11:11] VITALS: BP 127/68; PULSE 80; O2SAT 99; BMI 26.0
== END 2024-02-09 11:11 | disposition home or self-care (01) ==
PROVIDERS: PCP Internal Medicine; Visit Provider Anesthesiology
DX: M17.0 Bilateral primary osteoarthritis of knee (principal); M47.816 Spondylosis without myelopathy or radiculopathy, lumbar region; G89.4 Chronic pain syndrome; M19.011 Primary osteoarthritis, right shoulder; M19.012 Primary osteoarthritis, left shoulder; Z79.891 Long term (current) use of opiate analgesic
CPT/HCPCS: 99213

== ENCOUNTER → 2024-02-09 10:45 | Outpatient (BNVA) | payer MEDICARE, SELFPAY | PROVIDERS: PCP Internal Medicine; Visit Provider Anesthesiology | DX: M17.0 Bilateral primary osteoarthritis of knee (principal); M47.816 Spondylosis without myelopathy or radiculopathy, lumbar region; M19.011 Primary osteoarthritis, right shoulder; M19.012 Primary osteoarthritis, left shoulder; G89.4 Chronic pain syndrome; Z79.891 Long term (current) use of opiate analgesic | CPT/HCPCS: 99212 ==

== ENCOUNTER 2024-02-23 10:34 | Outpatient (AMB) | payer MEDICARE, SELFPAY ==
--- NOTE | 2024-02-23 10:48 | A.OFFVIS_ITS ---
Vital Signs 02/23/24 10:49 Height 5 ft 2 in Weight 141 lb 6 oz BMI 25.9 BP 144/67 H Blood Pressure Location Rt brachial Position Sitting Pulse 84 Pulse Source Pulse Oximeter Pulse Oximetry (%) 97 Oxygen Delivery Method Room Air Intake Visit Reasons: Medication Count Intake Note: Marilyn comes in today for a pill count to oxycodone, patient should have 45 tablets and presents with 47 tablets which she last took today 02/23/24 at 8am. 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 She reports that after treatment with sprint PNS her lumbar spine pain is all but gone. On the background of improved lumbar pain she complains on more pain in the cervical spine. She never had any images of the cervical spine. I sent her today for x-ray of the cervical spine and radiologist did not read the x-ray however I evaluated x-ray myself and there are significant spondylotic changes in the cervical spine I will schedule this patient for the medial branch block C4-C5 C6 bilateral. The pain count is correct today. Supposed to present with 45 pills in her possession. She came with 47 pills in her possession. She demonstrates responsible attitude to were the opioid medications. She denies side effects of the opioids, she admits improved activities of daily living, improved mobility, improved social interaction. She completed 2nd treatment of her sprint PNS for the lumbar spine 2 weeks ago in the beginning of 01/25/2024. Prior: Marilyn is a very pleasant 71 year old female who presents to the office for follow up chronic pain and chronic opioid therapy management. She presented today for pill count she is on oxycodone 5 mg t.i.d. she presented today for the pill count: She does not supposed to have any pills in her possession. She has 5 pills in her possession. She has prescription waiting for her for 10/05/2023 and her pharmacy. 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 She is scheduled for sprint PNS she would like to repeat the procedure. She reports her pain is 6/10. She reports that her pain is getting worse. She has obstructive sleep apnea. She has Narcan prescribed for her at home. The medication is stored her household and her relatives know how to use it. Sprint PNS in November of 2022 resulted on very good prolonged pain relief up to 8-9 months. [facility] Medical History Finger pain, left Patent foramen ovale Migraine Hypothyroid HTN (hypertension) Chronic pain syndrome Spondylosis of lumbar spine Osteoarthritis of knees, bilateral Surgical History History of back surgery Hx of section Hx laparoscopic cholecystectomy Social History Patient Tobacco Use Status: Never used Tobacco Second Hand Smoke Exposure: No Review of Systems Const All systems reviewed & are unremarkable except as noted in HPI and below ENT Reports Normal hearing present Neuro Reports Normal hearing present, Denies Abnormal speech present, Denies confusion and Denies Sensory deficit (Neuro) Psych Denies confusion Physical Exam Vital Signs: Last Vital Signs Pulse 84 02/23/24 10:49 BP 144/67 H 02/23/24 10:49 Pulse Ox 97 02/23/24 10:49 Oxygen Delivery Method Room Air 02/23/24 10:49 BMI result Body Mass Index 25.9 Const General: no acute distress; No confusion Orientation/consciousness: patient oriented x3 and No confusion Eyes General: appearance normal, both eyes and all related structures Pupils: Equal, round and reactive pupils present EOM: EOMs intact bilaterally Neck Other: Limited range of motion cervical spine. Tenderness on palpation in the paraspinal spinal region of the cervical spine. Valsalva is negative for pain exacerbation. Flexing head backwards and axial compression of the cervical spine aggravate the pain. Neck: No full ROM Chest Chest palpation & inspection: normal inspection of the chest Resp Effort & Inspection: normal respiratory effort, able to speak in complete sentences, normal respiratory pattern, no audible wheezes and no cough Cardio Jugular venous distension: no JVD GI Inspection: Yes normal to inspection Neuro General: patient oriented x3, gait normal and No confusion Cranial nerves: Yes CN's II-XII intact bilaterally, Yes Equal, round and reactive pupils present, Yes Normal hearing present and Yes Ability to bilaterally elevate shoulders present Speech: No Abnormal speech present Gait exam (Neuro): Normal gait present Motor exam (neuro): 5/5 motor strength present throughout Sensory Exam: No Sensory deficit (Neuro) Extrem General: No pedal edema Psych Speech and movement: Normal speech and movement present Affect: normal affect Attitude: cooperative Thought process: Normal thought process present Thought content: Normal thought content present Insight: Good insight present (Psych) Judgement: Good judgement present (Psych) Assessment & Plan Assessment & Plan (1) 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: Code(s): M47.12 - Other spondylosis with myelopathy, cervical region; M47.22 - Other spondylosis with radiculopathy, cervical region Category: Medical (2) Bilateral shoulder region arthritis: Code(s): M19.011 - Primary osteoarthritis, right shoulder; M19.012 - Primary osteoarthritis, left shoulder Category: Medical (3) Chronic pain syndrome: Code(s): G89.4 - Chronic pain syndrome Category: Medical (4) Spondylosis of lumbar spine: Code(s): M47.816 - Spondylosis without myelopathy or radiculopathy, lumbar region Category: Medical (5) Osteoarthritis of knees, bilateral: Code(s): M17.0 - Bilateral primary osteoarthritis of knee Category: Medical Plan The pill count is correct today I will schedule her appointment with me in 1 month. That will be pill count and follow-up. I will prescribe her the new refill of the oxycodone medication on 03/09/2024. The patient's pain is predominantly axial and most likely facetogenic in nature. I will schedule her for bilateral C4-C5 C6 diagnostic medial branch block to help to alleviate the pain in the cervical spine. Orders: Orders XR cervical spine 5V Today M47.12 - Other spondylosis with myelopathy, cervical region, M47.22 - Other spondylosis with radiculopathy, cervical region Medications: Refilled oxycodone Partial Fill upon patient request. 5 mg PO TID PRN 90 tabs 0RF pain 30 days G89.4 - Chronic pain syndrome, M17.0 - Bilateral primary osteoarthritis of knee, M19.011 - Primary osteoarthritis, right shoulder, M19.012 - Primary osteoarthritis, left shoulder, M47.816 - Spondylosis without myelopathy or radiculopathy, lumbar region, Z79.891 - skilled nursing (current) use of opiate analgesic Patient Instructions: I here by testify that I spent 42 minutes in conversation with this patient, examining the diagnostic images, planning her care and organizing this note. 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
[2024-02-23 10:49] VITALS: BP 144/67; PULSE 84; O2SAT 97; BMI 25.9
== END 2024-02-23 11:05 | disposition home or self-care (01) ==
PROVIDERS: PCP Internal Medicine; Visit Provider Anesthesiology
DX: G89.4 Chronic pain syndrome (principal); M47.12 Other spondylosis with myelopathy, cervical region; M47.22 Other spondylosis with radiculopathy, cervical region; Z79.891 Long term (current) use of opiate analgesic; M19.011 Primary osteoarthritis, right shoulder; M19.012 Primary osteoarthritis, left shoulder; M47.816 Spondylosis without myelopathy or radiculopathy, lumbar region; M17.0 Bilateral primary osteoarthritis of knee
CPT/HCPCS: 99215

== ENCOUNTER 2024-02-23 10:34 | Outpatient (REF) | payer MEDICARE, SELFPAY ==
--- NOTE | ~2024-02-23 | XR_ITS ---
EXAMINATION: XR CERVICAL SPINE CLINICAL INFORMATION: M47.12 - Other spondylosis with myelopathy, cervical region COMPARISON: None available. TECHNIQUE: 3 views of the cervical spine FINDINGS: No acute fractures. Degenerative changes with disc space narrowing, uncovertebral joint hypertrophy and osteophyte formation is seen at the C4/5, C5/6 and C6/7 which is moderate to severe. Posterior facet joint arthropathy is seen diffusely throughout the cervical spine bilaterally. There is retrolisthesis of C4 on C5 and C5 on C6 due to the degenerative disc disease. Prevertebral soft tissues are unremarkable. XR/XR cervical spine 5V IMPRESSION: Multilevel degenerative disc disease and posterior facet joint arthropathy as described above. Electronically signed by: Tanner Duff MD 02/25/2024 08:31 PM EST
== END 2024-02-23 10:35 | disposition home or self-care (01) ==
LOC: HO.XRAY 10:34
PROVIDERS: PCP Internal Medicine; Visit Provider Anesthesiology
DX: M47.12 Other spondylosis with myelopathy, cervical region (principal); M47.22 Other spondylosis with radiculopathy, cervical region; G89.4 Chronic pain syndrome; M47.816 Spondylosis without myelopathy or radiculopathy, lumbar region; M17.0 Bilateral primary osteoarthritis of knee; M19.011 Primary osteoarthritis, right shoulder; M19.012 Primary osteoarthritis, left shoulder
CPT/HCPCS: 72050; 99212

== ENCOUNTER 2024-03-22 10:37 | Outpatient (AMB) | payer MEDICARE, SELFPAY ==
--- NOTE | 2024-03-22 10:54 | A.OFFVIS_ITS ---
Vital Signs 03/22/24 10:55 Height 5 ft 2 in BP 141/75 H Blood Pressure Location Lt brachial Position Sitting Pulse 86 Pulse Source Pulse Oximeter Pulse Oximetry (%) 95 Oxygen Delivery Method Room Air Intake Visit Reasons: Pill Count Allergies sulfamethoxazole [From Bactrim] Allergy (Verified 03/22/24 10:54) anaphylaxis trimethoprim [From Bactrim] Allergy (Verified 03/22/24 10:54) anaphylaxis Medication List - Last Reconciled 03/22/24 by Caitlyn Cruz, ASSURANCE AUDITOR amlodipine 5 mg PO BEDTIME cyclobenzaprine 10 mg PO TID levothyroxine 125 mcg PO DAILY levothyroxine mcg PO lisinopril 10 mg PO DAILY naloxone 4 mg/actuation 4 mg intranasal Q3M PRN oxycodone 5 mg PO TID PRN 30 days trazodone 100 mg PO BEDTIME HPI Comments Details: Tanja is back in my office today for the follow-up and pain medication refill. She reports that after treatment with sprint PNS her lumbar spine pain is all but gone. On the background of improved lumbar pain she complains on more pain in the cervical spine. She never had any images of the cervical spine. I sent her today for x-ray of the cervical spine and radiologist did not read the x-ray however I evaluated x-ray myself and there are significant spondylotic changes in the cervical spine I will schedule this patient for the medial branch block C4-C5 C6 bilateral. The pain count is correct today. Supposed to present with 48 pills in her possession. She came with 53 pills in her possession. She demonstrates responsible attitude to were the opioid medications. She denies side effects of the opioids, she admits improved activities of daily living, improved mobility, improved social interaction. She completed 2nd treatment of her sprint PNS for the lumbar spine 2 weeks ago in the beginning of 01/25/2024. She requested me to allow her to go on vacation on [place] for entire month of May. She wants to visit me on next appointment on 05/02/2024. She will leave on 05/03/2024 . she will come back on 06/06/2023 to see me in the office. With her prescription she is due on 04/09/2024. Prior: Marilyn is a very pleasant 71 year old female who presents to the office for follow up chronic pain and chronic opioid therapy management. She presented today for pill count she is on oxycodone 5 mg t.i.d. she presented today for the pill count: She does not supposed to have any pills in her possession. She has 5 pills in her possession. She has prescription waiting for her for 10/05/2023 and her pharmacy. 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 She is scheduled for sprint PNS she would like to repeat the procedure. She reports her pain is 6/10. She reports that her pain is getting worse. She has obstructive sleep apnea. She has Narcan prescribed for her at home. The medication is stored her household and her relatives know how to use it. Sprint PNS in November of 2022 resulted on very good prolonged pain relief up to 8-9 months. [facility] Medical History Finger pain, left Patent foramen ovale Migraine Hypothyroid HTN (hypertension) Chronic pain syndrome Spondylosis of lumbar spine Osteoarthritis of knees, bilateral Surgical History History of back surgery Hx of section Hx laparoscopic cholecystectomy Social History Patient Tobacco Use Status: Never used Tobacco Second Hand Smoke Exposure: No Review of Systems Const All systems reviewed & are unremarkable except as noted in HPI and below ENT Reports Normal hearing present Neuro Reports Normal hearing present, Denies Abnormal speech present, Denies confusion and Denies Sensory deficit (Neuro) Psych Denies confusion Physical Exam Vital Signs: Last Vital Signs Pulse 86 03/22/24 10:55 BP 141/75 H 03/22/24 10:55 Pulse Ox 95 03/22/24 10:55 Oxygen Delivery Method Room Air 03/22/24 10:55 Const General: no acute distress; No confusion Orientation/consciousness: patient oriented x3 and No confusion Eyes General: appearance normal, both eyes and all related structures Pupils: Equal, round and reactive pupils present EOM: EOMs intact bilaterally Neck Other: Limited range of motion cervical spine. Tenderness on palpation in the paraspinal spinal region of the cervical spine. Valsalva is negative for pain exacerbation. Flexing head backwards and axial compression of the cervical spine aggravate the pain. Neck: No full ROM Chest Chest palpation & inspection: normal inspection of the chest Resp Effort & Inspection: normal respiratory effort, able to speak in complete sentences, normal respiratory pattern, no audible wheezes and no cough Cardio Jugular venous distension: no JVD GI Inspection: Yes normal to inspection Neuro General: patient oriented x3, gait normal and No confusion Cranial nerves: Yes CN's II-XII intact bilaterally, Yes Equal, round and reactive pupils present, Yes Normal hearing present and Yes Ability to bilaterally elevate shoulders present Speech: No Abnormal speech present Gait exam (Neuro): Normal gait present Motor exam (neuro): 5/5 motor strength present throughout Sensory Exam: No Sensory deficit (Neuro) Extrem General: No pedal edema Psych Speech and movement: Normal speech and movement present Affect: normal affect Attitude: cooperative Thought process: Normal thought process present Thought content: Normal thought content present Insight: Good insight present (Psych) Judgement: Good judgement present (Psych) Assessment & Plan Assessment & Plan (1) 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: Code(s): M47.12 - Other spondylosis with myelopathy, cervical region; M47.22 - Other spondylosis with radiculopathy, cervical region Category: Medical (2) Bilateral shoulder region arthritis: Code(s): M19.011 - Primary osteoarthritis, right shoulder; M19.012 - Primary osteoarthritis, left shoulder Category: Medical (3) Chronic pain syndrome: Code(s): G89.4 - Chronic pain syndrome Category: Medical (4) Spondylosis of lumbar spine: Code(s): M47.816 - Spondylosis without myelopathy or radiculopathy, lumbar region Category: Medical (5) Osteoarthritis of knees, bilateral: Code(s): M17.0 - Bilateral primary osteoarthritis of knee Category: Medical Plan The pill count is correct today I will schedule her appointment with me in 05/02/2024. That will be pill count and follow-up. I will prescribe her the new refill of the oxycodone medication on 04/09/2024 The patient's pain is predominantly axial and most likely facetogenic in nature. Pending bilateral C4-C5 C6 diagnostic medial branch block to help to alleviate the pain in the cervical spine. Her next appointment after 05/02/2024 will be on 06/05/2024, I will allow it , patient wants to take location in [place]. Medications: Refilled oxycodone Partial Fill upon patient request. 5 mg PO TID 30 days PRN 90 tabs 0RF pain G89.4 - Chronic pain syndrome, M17.0 - Bilateral primary osteoarthritis of knee, M19.011 - Primary osteoarthritis, right shoulder, M19.012 - Primary osteoarthritis, left shoulder, M47.816 - Spondylosis without myelopathy or radiculopathy, lumbar region, Z79.891 - long term acute care registered nurse (current) use of opiate analgesic Patient Instructions: I here by testify that I spent 32 minutes in conversation with this patient as well as planning her care and organizing this note. 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
[2024-03-22 10:55] VITALS: BP 141/75; PULSE 86; O2SAT 95
== END 2024-03-22 11:13 | disposition home or self-care (01) ==
PROVIDERS: PCP Internal Medicine; Visit Provider Anesthesiology
DX: M47.12 Other spondylosis with myelopathy, cervical region (principal); M47.22 Other spondylosis with radiculopathy, cervical region; M19.011 Primary osteoarthritis, right shoulder; M19.012 Primary osteoarthritis, left shoulder; G89.4 Chronic pain syndrome; M47.816 Spondylosis without myelopathy or radiculopathy, lumbar region; M17.0 Bilateral primary osteoarthritis of knee
CPT/HCPCS: 99214

== ENCOUNTER → 2024-03-22 10:37 | Outpatient (BNVA) | payer MEDICARE, SELFPAY | PROVIDERS: PCP Internal Medicine; Visit Provider Anesthesiology | DX: M47.12 Other spondylosis with myelopathy, cervical region (principal); M47.22 Other spondylosis with radiculopathy, cervical region; M19.011 Primary osteoarthritis, right shoulder; M47.816 Spondylosis without myelopathy or radiculopathy, lumbar region; M19.012 Primary osteoarthritis, left shoulder; M17.0 Bilateral primary osteoarthritis of knee; G89.4 Chronic pain syndrome; Z51.81 Encounter for therapeutic drug level monitoring; Z79.891 Long term (current) use of opiate analgesic | CPT/HCPCS: 99212 ==

== ENCOUNTER 2024-05-02 10:33 | Outpatient (AMB) | payer MEDICARE, SELFPAY ==
--- NOTE | 2024-05-02 10:37 | MHC.OFFVIS ---
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 She continues to endorse the improvement of the lower back pain after sprint PNS. I offered her to go for physical therapy to fortify the results. She agreed to go for physical therapy. On the background of improved lumbar pain she complains on more pain in the cervical spine. We are still waiting for C4-C5 C6 medial branch block bilateral cervical to be scheduled. The pain count is correct today. Supposed to present with Twenty-four pills in her possession. She came with 33 pills in her possession. She demonstrates responsible attitude to were the opioid medications. She denies side effects of the opioids, she admits improved activities of daily living, improved mobility, improved social interaction. She completed 2nd treatment of her sprint PNS for the lumbar spine 2 weeks ago in the beginning of 01/25/2024. She requested me to allow her to go on vacation on [place] for entire month of May. S she came to visit to me today. She will leave on 05/03/2024 . she will come back on 06/06/2023 to see me in the office. her prescription will be sent to her with overnight male. The next pill count will be scheduled on 06/06/2023 Sprint PNS in November of 2022 resulted on very good prolonged pain relief up to 8-9 months. [facility] Medical History Finger pain, left Patent foramen ovale Migraine Hypothyroid HTN (hypertension) Chronic pain syndrome Spondylosis of lumbar spine Osteoarthritis of knees, bilateral Surgical History History of back surgery Hx of section Hx laparoscopic cholecystectomy Social History Patient Tobacco Use Status: Never used Tobacco Second Hand Smoke Exposure: No Review of Systems Const All systems reviewed & are unremarkable except as noted in HPI and below ENT Reports Normal hearing present Neuro Reports Normal hearing present, Denies Abnormal speech present, Denies confusion and Denies Sensory deficit (Neuro) Psych Denies confusion Physical Exam Vital Signs: Last Vital Signs Pulse 82 05/02/24 10:38 BP 132/69 05/02/24 10:38 Pulse Ox 94 05/02/24 10:38 Oxygen Delivery Method Room Air 05/02/24 10:38 BMI result Body Mass Index 25.8 Const General: no acute distress; No confusion Orientation/consciousness: patient oriented x3 and No confusion Eyes General: appearance normal, both eyes and all related structures Pupils: Equal, round and reactive pupils present EOM: EOMs intact bilaterally Neck Other: Limited range of motion cervical spine. Tenderness on palpation in the paraspinal spinal region of the cervical spine. Valsalva is negative for pain exacerbation. Flexing head backwards and axial compression of the cervical spine aggravate the pain. Neck: No full ROM Chest Chest palpation & inspection: normal inspection of the chest Resp Effort & Inspection: normal respiratory effort, able to speak in complete sentences, normal respiratory pattern, no audible wheezes and no cough Cardio Jugular venous distension: no JVD GI Inspection: Yes normal to inspection Neuro General: patient oriented x3, gait normal and No confusion Cranial nerves: Yes CN's II-XII intact bilaterally, Yes Equal, round and reactive pupils present, Yes Normal hearing present and Yes Ability to bilaterally elevate shoulders present Speech: No Abnormal speech present Gait exam (Neuro): Normal gait present Motor exam (neuro): 5/5 motor strength present throughout Sensory Exam: No Sensory deficit (Neuro) Extrem General: No pedal edema Psych Speech and movement: Normal speech and movement present Affect: normal affect Attitude: cooperative Thought process: Normal thought process present Thought content: Normal thought content present Insight: Good insight present (Psych) Judgement: Good judgement present (Psych) Assessment & Plan Assessment & Plan (1) 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: Code(s): M47.12 - Other spondylosis with myelopathy, cervical region; M47.22 - Other spondylosis with radiculopathy, cervical region Category: Medical (2) Bilateral shoulder region arthritis: Code(s): M19.011 - Primary osteoarthritis, right shoulder; M19.012 - Primary osteoarthritis, left shoulder Category: Medical (3) Chronic pain syndrome: Code(s): G89.4 - Chronic pain syndrome Category: Medical (4) Spondylosis of lumbar spine: Code(s): M47.816 - Spondylosis without myelopathy or radiculopathy, lumbar region Category: Medical (5) Osteoarthritis of knees, bilateral: Code(s): M17.0 - Bilateral primary osteoarthritis of knee Category: Medical Plan The pill count is correct today, I will send her next prescription on 05/06/2024. The patient's pain is predominantly axial and most likely facetogenic in nature. I will send her for physical therapy as soon as she would return from the vacation in [place] Her next appointment after 05/02/2024 will be on 06/05/2024, I will allow it. Medications: Refilled oxycodone Partial Fill upon patient request. 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
[2024-05-02 10:38] VITALS: BP 132/69; PULSE 82; O2SAT 94; BMI 25.8
== END 2024-05-02 11:24 | disposition home or self-care (01) ==
PROVIDERS: PCP Internal Medicine; Visit Provider Anesthesiology
DX: M47.12 Other spondylosis with myelopathy, cervical region (principal); M47.22 Other spondylosis with radiculopathy, cervical region; M19.011 Primary osteoarthritis, right shoulder; M19.012 Primary osteoarthritis, left shoulder; G89.4 Chronic pain syndrome; M47.816 Spondylosis without myelopathy or radiculopathy, lumbar region; M17.0 Bilateral primary osteoarthritis of knee
CPT/HCPCS: 99213

== ENCOUNTER → 2024-05-02 10:33 | Outpatient (BNVA) | payer MEDICARE, SELFPAY | PROVIDERS: PCP Internal Medicine; Visit Provider Anesthesiology | DX: M47.12 Other spondylosis with myelopathy, cervical region (principal); M47.22 Other spondylosis with radiculopathy, cervical region; M19.011 Primary osteoarthritis, right shoulder; M19.012 Primary osteoarthritis, left shoulder; G89.4 Chronic pain syndrome; M47.816 Spondylosis without myelopathy or radiculopathy, lumbar region; M17.0 Bilateral primary osteoarthritis of knee; Z79.891 Long term (current) use of opiate analgesic | CPT/HCPCS: 99212 ==

== ENCOUNTER 2024-06-06 11:11 | Outpatient (AMB) | payer MEDICARE, SELFPAY ==
--- NOTE | 2024-06-06 11:13 | A.OFFVIS_ITS ---
Vital Signs 06/06/24 11:14 Height 5 ft 2 in Weight 141 lb BMI 25.8 BP 149/72 H Blood Pressure Location Lt brachial Position Sitting Respiration 16 Pulse 72 Pulse Source Pulse Oximeter Pulse Oximetry (%) 97 Oxygen Delivery Method Room Air Intake Visit Reasons: Pill count Intake Note: Pt states she last took oxy 06/06/24 @ 7:30am Bologna Maker Required: No Allergies sulfamethoxazole [From Bactrim] Allergy (Verified 06/06/24 11:15) anaphylaxis trimethoprim [From Bactrim] Allergy (Verified 06/06/24 11:15) anaphylaxis Medication List - Last Reconciled 06/06/24 by Mari Diaz LPN amlodipine 5 mg PO BEDTIME atorvastatin 10 mg PO BEDTIME cyclobenzaprine 10 mg PO TID levothyroxine mcg PO lisinopril 10 mg PO DAILY naloxone 4 mg/actuation 4 mg intranasal Q3M PRN oxycodone 5 mg PO TID PRN 30 days trazodone 100 mg PO BEDTIME HPI Comments Details: Tanja is back in my office today for the follow-up and pain medication refill. She continues to endorse the improvement of the lower back pain after sprint PNS. On the background of improved lumbar pain she complains on more pain in the cervical spine. She is scheduled for bilateral medial branch block C4-C5- C6 diagnostic on 06/12/2024 The pill count is not correct today she has 3 pills short. She was receiving medication which was sent to her in [place]. The medication was filled on 05/08/2024 however it was sold on 05/09/2024 and therefore from this date the medication needs to be counted on. She is within her daily limit of the medications and therefore her pill count technically is correct. She completed 2nd treatment of her sprint PNS for the lumbar spine 2 weeks ago in the beginning of 01/25/2024. Sprint PNS in November of 2022 resulted on very good prolonged pain relief up to 8-9 months. [facility] Medical History Finger pain, left Patent foramen ovale Migraine Hypothyroid HTN (hypertension) Chronic pain syndrome Spondylosis of lumbar spine Osteoarthritis of knees, bilateral Surgical History History of back surgery Hx of section Hx laparoscopic cholecystectomy Social History Patient Tobacco Use Status: Never used Tobacco Second Hand Smoke Exposure: No Review of Systems Const All systems reviewed & are unremarkable except as noted in HPI and below ENT Reports Normal hearing present Neuro Reports Normal hearing present, Denies Abnormal speech present, Denies confusion and Denies Sensory deficit (Neuro) Psych Denies confusion Physical Exam Vital Signs: Last Vital Signs Pulse 72 06/06/24 11:14 Resp 16 06/06/24 11:14 BP 149/72 H 06/06/24 11:14 Pulse Ox 97 06/06/24 11:14 Oxygen Delivery Method Room Air 06/06/24 11:14 BMI result Body Mass Index 25.8 Const General: no acute distress; No confusion Orientation/consciousness: patient oriented x3 and No confusion Eyes General: appearance normal, both eyes and all related structures Pupils: Equal, round and reactive pupils present EOM: EOMs intact bilaterally Neck Other: Limited range of motion cervical spine. Tenderness on palpation in the paraspinal spinal region of the cervical spine. Valsalva is negative for pain exacerbation. Flexing head backwards and axial compression of the cervical spine aggravate the pain. Neck: No full ROM Chest Chest palpation & inspection: normal inspection of the chest Resp Effort & Inspection: normal respiratory effort, able to speak in complete sentences, normal respiratory pattern, no audible wheezes and no cough Cardio Jugular venous distension: no JVD GI Inspection: Yes normal to inspection Neuro General: patient oriented x3, gait normal and No confusion Cranial nerves: Yes CN's II-XII intact bilaterally, Yes Equal, round and reactive pupils present, Yes Normal hearing present and Yes Ability to bila terally elevate shoulders present Speech: No Abnormal speech present Gait exam (Neuro): Normal gait present Motor exam (neuro): 5/5 motor strength present throughout Sensory Exam: No Sensory deficit (Neuro) Extrem General: No pedal edema Psych Speech and movement: Normal speech and movement present Affect: normal affect Attitude: cooperative Thought process: Normal thought process present Thought content: Normal thought content present Insight: Good insight present (Psych) Judgement: Good judgement present (Psych) Assessment & Plan Assessment & Plan (1) 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: Code(s): M47.12 - Other spondylosis with myelopathy, cervical region; M47.22 - Other spondylosis with radiculopathy, cervical region Category: Medical (2) Bilateral shoulder region arthritis: Code(s): M19.011 - Primary osteoarthritis, right shoulder; M19.012 - Primary osteoarthritis, left shoulder Category: Medical (3) Chronic pain syndrome: Code(s): G89.4 - Chronic pain syndrome Category: Medical (4) Spondylosis of lumbar spine: Code(s): M47.816 - Spondylosis without myelopathy or radiculopathy, lumbar region Category: Medical (5) Osteoarthritis of knees, bilateral: Code(s): M17.0 - Bilateral primary osteoarthritis of knee Category: Medical Plan The pill count is correct today, I will send her next prescription on 06/07/2024 The patient's pain is predominantly axial and most likely facetogenic in nature. She is scheduled for injection in the cervical spine C4-C5- C6 diagnostic bilateral. Sprint PNS could be employed to treat her pain if result is positive for this procedure. Her next appointment will be scheduled in 1 month. Medications: Refilled oxycodone Partial Fill upon patient request. 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
[2024-06-06 11:14] VITALS: BP 149/72; PULSE 72; RESP 16; O2SAT 97; BMI 25.8
== END 2024-06-06 11:30 | disposition home or self-care (01) ==
LOC: HO.PMC 11:11
PROVIDERS: PCP Internal Medicine; Visit Provider Anesthesiology
DX: M47.12 Other spondylosis with myelopathy, cervical region (principal); M47.22 Other spondylosis with radiculopathy, cervical region; M19.011 Primary osteoarthritis, right shoulder; M19.012 Primary osteoarthritis, left shoulder; G89.4 Chronic pain syndrome; M47.816 Spondylosis without myelopathy or radiculopathy, lumbar region; M17.0 Bilateral primary osteoarthritis of knee
CPT/HCPCS: 99213

== ENCOUNTER → 2024-06-06 11:11 | Outpatient (BNVA) | payer MEDICARE, SELFPAY | PROVIDERS: PCP Internal Medicine; Visit Provider Anesthesiology | DX: Z51.81 Encounter for therapeutic drug level monitoring (principal); M47.12 Other spondylosis with myelopathy, cervical region; M47.22 Other spondylosis with radiculopathy, cervical region; M19.011 Primary osteoarthritis, right shoulder; M19.012 Primary osteoarthritis, left shoulder; M47.816 Spondylosis without myelopathy or radiculopathy, lumbar region; M17.0 Bilateral primary osteoarthritis of knee; G89.4 Chronic pain syndrome | CPT/HCPCS: 99212 ==

== ENCOUNTER 2024-06-12 06:20 | Outpatient (REF) | payer MEDICARE, SELFPAY ==
--- NOTE | ~2024-06-12 | FL_ITS ---
EXAMINATION: FL GUIDANCE ONLY HISTORY: M47.12 - Other spondylosis with myelopathy, cervical region COMPARISON: None available. TECHNIQUE: Fluoroscopy time: 44.4 seconds. Cumulative Dose: 4.6357 mGy. DAP: 1.4098 mGym2 Images: 10. FINDINGS: Images demonstrate multiple needles and contrast material in the neck bilaterally. FL/FL guidance in treatment room IMPRESSION: Fluoroscopy during procedure. Please see procedure report for additional information. Electronically signed by: Dylan Gordon MD 06/12/2024 11:55 AM EDT
== END 2024-06-12 06:21 | disposition home or self-care (01) ==
LOC: CF 06:20
PROVIDERS: Visit Provider Anesthesiology
DX: M47.12 Other spondylosis with myelopathy, cervical region (principal); M47.22 Other spondylosis with radiculopathy, cervical region; M47.812 Spondylosis without myelopathy or radiculopathy, cervical region
CPT/HCPCS: 64490; 64491; J2003; J2795; Q9967

== ENCOUNTER 2024-06-12 10:19 | Outpatient (AMB) | payer MEDICARE, SELFPAY ==
[2024-06-12 10:23] VITALS: BP 118/70; PULSE 84; RESP 16; O2SAT 93
--- NOTE | 2024-06-12 10:23 | MHC.OFFVIS ---
Vital Signs 06/12/24 10:23 06/12/24 10:56 BP 118/70 138/70 Blood Pressure Location Lt brachial Lt brachial Position Sitting Sitting Respiration 16 16 Pulse 84 67 Pulse Source Pulse Oximeter Pulse Oximeter Pulse Oximetry (%) 93 95 Oxygen Delivery Method Room Air Room Air Intake Visit Reasons: BILATERAL DIAGNOSTIC C4, C5, C6 MBB Cork Compounder Required: No Allergies sulfamethoxazole [From Bactrim] Allergy (Verified 06/12/24 10:24) anaphylaxis trimethoprim [From Bactrim] Allergy (Verified 06/12/24 10:24) anaphylaxis Medication List - Last Reconciled 06/12/24 by Mari Diaz LPN amlodipine 5 mg PO BEDTIME atorvastatin 10 mg PO BEDTIME cyclobenzaprine 10 mg PO TID levothyroxine mcg PO lisinopril 10 mg PO DAILY naloxone 4 mg/actuation 4 mg intranasal Q3M PRN oxycodone 5 mg PO TID PRN 30 days trazodone 100 mg PO BEDTIME PFSH Medical History Finger pain, left Patent foramen ovale Migraine Hypothyroid HTN (hypertension) Chronic pain syndrome Spondylosis of lumbar spine Osteoarthritis of knees, bilateral Surgical History History of back surgery Hx of section Hx laparoscopic cholecystectomy Social History Patient Tobacco Use Status: Never used Tobacco Second Hand Smoke Exposure: No Physical Exam Vital Signs: Last Vital Signs Pulse 67 06/12/24 10:56 Resp 16 06/12/24 10:56 BP 138/70 06/12/24 10:56 Pulse Ox 95 06/12/24 10:56 Oxygen Delivery Method Room Air 06/12/24 10:56 Assessment & Plan Assessment & Plan (1) Spondylosis of cervical region without myelopathy or radiculopathy: Code(s): M47.812 - Spondylosis without myelopathy or radiculopathy, cervical region Category: Medical Plan Bilateral diagnostic cervical medial branch block C4-C5-C6. Informed consent was thoroughly explained to the patient. Risks and benefits were explained as risk of bleeding infection peripheral nerve damage spinal cord damage and headache. The patient was taken to the operating room and positioned prone on operating table. The posterior neck and upper back was prepped with ChloraPrep and draped with sterile utility towels. C-arm was brought over the operating field and picture of the C4, C5, C6,vertebra were delineated on the screen. Bilateral lateral masses of those vertebras were chosen as target of the injection. The location of the waistline of each of the lateral mass was chosen at the endpoint of the needle advancement. After that projection of these points to the skin was injected with small amount of mixture of lidocaine 2% and ropivacaine 0.5% one-to-one. After that three 22 gauge 3-1/2 inch needles were driven to the point of interest in tunnel vision fashion until the tip of the needle gently contacted the bone. Injection of the contrast was performed delineating no intrathecal and no intravascular spread of the contrast. After that small amount of local anesthetic less than 1 cc ropivacaine 0.5% was injected into each needle. Upon completion of the procedure needles were removed, sterile Band-Aids were applied. Patient tolerated procedure well. Orders: Orders FL guidance in treatment room Today M47.12 - Other spondylosis with myelopathy, cervical region, M47.22 - Other spondylosis with radiculopathy, cervical region Coding Level of Care Code Procedure Only Diagnoses Spondylosis of cervical region without myelopathy or radiculopathy M47.812
[2024-06-12 10:56] VITALS: BP 138/70; PULSE 67; RESP 16; O2SAT 95
== END 2024-06-12 11:03 | disposition home or self-care (01) ==
LOC: HO.PMCPRC 10:19
PROVIDERS: PCP Internal Medicine; Visit Provider Anesthesiology
DX: M47.812 Spondylosis without myelopathy or radiculopathy, cervical region (principal)
CPT/HCPCS: 64490; 64491

== ENCOUNTER 2024-06-18 10:21 | Outpatient (AMB) | payer MEDICARE, SELFPAY ==
[2024-06-18 10:29] VITALS: BP 140/70; PULSE 77; O2SAT 98; BMI 25.6
--- NOTE | 2024-06-18 10:29 | MHC.OFFVIS ---
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 She reports absence of pain for the 1st 2 hours after the procedure. 3 hours after procedure her pain was 2 to 3/10. 4 hours after the procedure her pain was 4/10 and 5 hours after the procedure her pain was 4/10. She reports that overall for the 1st 5 hours after the procedure her pain relief was more than 75%. She is very eager to get the sprint PNS procedure. She also had good results for sprint PNS procedure for the lumbar spine. Now she is willing to go for sprint PNS for cervical spine. She completed 2nd treatment of her sprint PNS for the lumbar spine 2 weeks ago in the beginning of 01/25/2024. Sprint PNS in November of 2022 resulted on very good prolonged pain relief up to 8-9 months. [facility] Medical History Finger pain, left Patent foramen ovale Migraine Hypothyroid HTN (hypertension) Chronic pain syndrome Spondylosis of lumbar spine Osteoarthritis of knees, bilateral Surgical History History of back surgery Hx of section Hx laparoscopic cholecystectomy Social History Patient Tobacco Use Status: Never used Tobacco Second Hand Smoke Exposure: No Review of Systems Const All systems reviewed & are unremarkable except as noted in HPI and below ENT Reports Normal hearing present Neuro Reports Normal hearing present, Denies Abnormal speech present, Denies confusion and Denies Sensory deficit (Neuro) Psych Denies confusion Physical Exam Vital Signs: Last Vital Signs Pulse 77 06/18/24 10:29 BP 140/70 H 06/18/24 10:29 Pulse Ox 98 06/18/24 10:29 Oxygen Delivery Method Room Air 06/18/24 10:29 BMI result Body Mass Index 25.6 Const General: no acute distress; No confusion Orientation/consciousness: patient oriented x3 and No confusion Eyes General: appearance normal, both eyes and all related structures Pupils: Equal, round and reactive pupils present EOM: EOMs intact bilaterally Neck Other: Limited range of motion cervical spine. Tenderness on palpation in the paraspinal spinal region of the cervical spine. Valsalva is negative for pain exacerbation. Flexing head backwards and axial compression of the cervical spine aggravate the pain. Neck: No full ROM Chest Chest palpation & inspection: normal inspection of the chest Resp Effort & Inspection: normal respiratory effort, able to speak in complete sentences, normal respiratory pattern, no audible wheezes and no cough Cardio Jugular venous distension: no JVD GI Inspection: Yes normal to inspection Neuro General: patient oriented x3, gait normal and No confusion Cranial nerves: Yes CN's II-XII intact bilaterally, Yes Equal, round and reactive pupils present, Yes Normal hearing present and Yes Ability to bilaterally elevate shoulders present Speech: No Abnormal speech present Gait exam (Neuro): Normal gait present Motor exam (neuro): 5/5 motor strength present throughout Sensory Exam: No Sensory deficit (Neuro) Extrem General: No pedal edema Psych Speech and movement: Normal speech and movement present Affect: normal affect Attitude: cooperative Thought process: Normal thought process present Thought content: Normal thought content present Insight: Good insight present (Psych) Judgement: Good judgement present (Psych) Assessment & Plan Assessment & Plan (1) 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: Code(s): M47.12 - Other spondylosis with myelopathy, cervical region; M47.22 - Other spondylosis with radiculopathy, cervical region Category: Medical (2) Bilateral shoulder region arthritis: Code(s): M19.011 - Primary osteoarthritis, right shoulder; M19.012 - Primary osteoarthritis, left shoulder Category: Medical (3) Chronic pain syndrome: Code(s): G89.4 - Chronic pain syndrome Category: Medical (4) Spondylosis of lumbar spine: Code(s): M47.816 - Spondylosis without myelopathy or radiculopathy, lumbar region Category: Medical (5) Osteoarthritis of knees, bilateral: Code(s): M17.0 - Bilateral primary osteoarthritis of knee Category: Medical (6) Spondylosis of cervical region without myelopathy or radiculopathy: Code(s): M47.812 - Spondylosis without myelopathy or radiculopathy, cervical region Category: Medical Plan The patient's pain is predominantly axial and most likely facetogenic in nature. Diagnostic C4-C5-C6 medial branch block resulted in overall 75% pain improvement or more Sprint PNS could be employed to treat her pain if result is positive for this procedure. I will schedule her for sprint PNS on the right and after that I will schedule her on the left 2 weeks after. 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
== END 2024-06-18 10:32 | disposition home or self-care (01) ==
LOC: HO.PMC 10:25
PROVIDERS: PCP Internal Medicine; Visit Provider Anesthesiology
DX: M47.12 Other spondylosis with myelopathy, cervical region (principal); M47.22 Other spondylosis with radiculopathy, cervical region; M19.011 Primary osteoarthritis, right shoulder; M19.012 Primary osteoarthritis, left shoulder; G89.4 Chronic pain syndrome; M47.816 Spondylosis without myelopathy or radiculopathy, lumbar region; M17.0 Bilateral primary osteoarthritis of knee; M47.812 Spondylosis without myelopathy or radiculopathy, cervical region
CPT/HCPCS: 99213

== ENCOUNTER → 2024-06-18 10:21 | Outpatient (BNVA) | payer MEDICARE, SELFPAY | PROVIDERS: PCP Internal Medicine; Visit Provider Anesthesiology | DX: M47.12 Other spondylosis with myelopathy, cervical region (principal); M47.22 Other spondylosis with radiculopathy, cervical region; M19.011 Primary osteoarthritis, right shoulder; M19.012 Primary osteoarthritis, left shoulder; M47.816 Spondylosis without myelopathy or radiculopathy, lumbar region; M17.0 Bilateral primary osteoarthritis of knee; M47.812 Spondylosis without myelopathy or radiculopathy, cervical region; G89.4 Chronic pain syndrome | CPT/HCPCS: 99212 ==

== ENCOUNTER 2024-07-04 11:00 | Outpatient (AMB) | payer MEDICARE, SELFPAY ==
[2024-07-04 11:25] VITALS: BP 154/69; PULSE 82; O2SAT 95; BMI 25.6
--- NOTE | 2024-07-04 11:25 | A.OFFVIS_ITS ---
Vital Signs 07/04/24 11:25 Height 5 ft 2 in Weight 140 lb BMI 25.6 BP 154/69 H Blood Pressure Location Lt brachial Position Sitting Pulse 82 Pulse Source Pulse Oximeter Pulse Oximetry (%) 95 Oxygen Delivery Method Room Air Intake Visit Reasons: Pill count Lead Investigator Required: No Allergies sulfamethoxazole [From Bactrim] Allergy (Verified 07/04/24 11:26) anaphylaxis trimethoprim [From Bactrim] Allergy (Verified 07/04/24 11:26) anaphylaxis Medication List - Last Reconciled 07/04/24 by Caitlyn Cruz, DIRECTOR OF CASEWORK DEPARTMENT amlodipine 5 mg PO BEDTIME atorvastatin 10 mg PO BEDTIME cholecalciferol (vitamin D3) 1,250 mcg PO QWEEK cyclobenzaprine 10 mg PO TID levothyroxine mcg PO lisinopril 10 mg PO DAILY naloxone 4 mg/actuation 4 mg intranasal Q3M PRN oxycodone 5 mg PO TID PRN 30 days trazodone 100 mg PO BEDTIME HPI Comments Details: Tanja is back in my office today for the follow-up and pain medication pill count. She received very good array of interventional pain management treatment. She received sprint PNS of the lumbar spine starting 01/25/2024, she recently received diagnostic medial branch blocks in the cervical spine with very good results. We are planning sprint PNS for her cervical spine in August. This is reflected on her pill count. She supposed to bring 9 pills in her possession of oxycodone 5 mg she presented with 16 pills. This reflects good attitude to were the opioid medications however it also shows increased level of pain. She presented today with pain 5/10 however she stated that she performed vigorous activities in her garden and that is why her pain is slightly higher than it usually is. She completed 2nd treatment of her sprint PNS for the lumbar spine 2 weeks ago in the beginning of 01/25/2024. Sprint PNS in November of 2022 resulted on very good prolonged pain relief up to 8-9 months. She denies side effects of the opioid medications she denies constipation. I will prescribe her medications on 07/07/2024. [facility] Medical History Finger pain, left Patent foramen ovale Migraine Hypothyroid HTN (hypertension) Chronic pain syndrome Spondylosis of lumbar spine Osteoarthritis of knees, bilateral Surgical History History of back surgery Hx of section Hx laparoscopic cholecystectomy Social History Patient Tobacco Use Status: Never used Tobacco Second Hand Smoke Exposure: No Review of Systems Const All systems reviewed & are unremarkable except as noted in HPI and below ENT Reports Normal hearing present Neuro Reports Normal hearing present, Denies Abnormal speech present, Denies confusion and Denies Sensory deficit (Neuro) Psych Denies confusion Physical Exam Vital Signs: Last Vital Signs Pulse 82 07/04/24 11:25 BP 154/69 H 07/04/24 11:25 Pulse Ox 95 07/04/24 11:25 Oxygen Delivery Method Room Air 07/04/24 11:25 BMI result Body Mass Index 25.6 Const General: no acute distress; No confusion Orientation/consciousness: patient oriented x3 and No confusion Eyes General: appearance normal, both eyes and all related structures Pupils: Equal, round and reactive pupils present EOM: EOMs intact bilaterally Neck Other: Limited range of motion cervical spine. Tenderness on palpation in the paraspinal spinal region of the cervical spine. Valsalva is negative for pain exacerbation. Flexing head backwards and axial compression of the cervical spine aggravate the pain. Neck: No full ROM Chest Chest palpation & inspection: normal inspection of the chest Resp Effort & Inspection: normal respiratory effort, able to speak in complete sentences, normal respiratory pattern, no audible wheezes and no cough Cardio Jugular venous distension: no JVD GI Inspection: Yes normal to inspection Neuro General: patient oriented x3, gait normal and No confusion Cranial nerves: Yes CN's II-XII intact bilaterally, Yes Equal, round and reactive pupils present, Yes Normal hearing present and Yes Ability to bilaterally elevate shoulders present Speech: No Abnormal speech present Gait exam (Neuro): Normal gait present Motor exam (neuro): 5/5 motor strength present throughout Sensory Exam: No Sensory deficit (Neuro) Extrem General: No pedal edema Psych Speech and movement: Normal speech and movement present Affect: normal affect Attitude: cooperative Thought process: Normal thought process present Thought content: Normal thought content present Insight: Good insight present (Psych) Judgement: Good judgement present (Psych) Assessment & Plan Assessment & Plan (1) 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: Code(s): M47.12 - Other spondylosis with myelopathy, cervical region; M47.22 - Other spondylosis with radiculopathy, cervical region Category: Medical (2) Bilateral shoulder region arthritis: Code(s): M19.011 - Primary osteoarthritis, right shoulder; M19.012 - Primary osteoarthritis, left shoulder Category: Medical (3) Chronic pain syndrome: Code(s): G89.4 - Chronic pain syndrome Category: Medical (4) Spondylosis of lumbar spine: Code(s): M47.816 - Spondylosis without myelopathy or radiculopathy, lumbar region Category: Medical (5) Osteoarthritis of knees, bilateral: Code(s): M17.0 - Bilateral primary osteoarthritis of knee Category: Medical (6) Spondylosis of cervical region without myelopathy or radiculopathy: Code(s): M47.812 - Spondylosis without myelopathy or radiculopathy, cervical region Category: Medical Plan The patient's pain is predominantly axial and most likely facetogenic in nature. Diagnostic C4-C5-C6 medial branch block resulted in overall 75% pain improvement or more Sprint PNS will be performed in August to help the pain in the neck. She is also interested in permanent peripheral nerve stimulation for the lower back pain. I explained to her that she needs to go for psychological evaluation for this procedure. Medications: Refilled oxycodone Partial Fill upon patient request. 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
== END 2024-07-04 11:32 | disposition home or self-care (01) ==
LOC: HO.PMC 11:00
PROVIDERS: PCP Internal Medicine; Visit Provider Anesthesiology
DX: M47.12 Other spondylosis with myelopathy, cervical region (principal); M47.22 Other spondylosis with radiculopathy, cervical region; M19.011 Primary osteoarthritis, right shoulder; M19.012 Primary osteoarthritis, left shoulder; G89.4 Chronic pain syndrome; M47.816 Spondylosis without myelopathy or radiculopathy, lumbar region; M17.0 Bilateral primary osteoarthritis of knee; M47.812 Spondylosis without myelopathy or radiculopathy, cervical region
CPT/HCPCS: 99213

== ENCOUNTER → 2024-07-04 11:00 | Outpatient (BNVA) | payer MEDICARE, SELFPAY | PROVIDERS: PCP Internal Medicine; Visit Provider Anesthesiology | DX: Z51.81 Encounter for therapeutic drug level monitoring (principal); M47.12 Other spondylosis with myelopathy, cervical region; M47.22 Other spondylosis with radiculopathy, cervical region; M19.011 Primary osteoarthritis, right shoulder; M19.012 Primary osteoarthritis, left shoulder; M47.816 Spondylosis without myelopathy or radiculopathy, lumbar region; M17.0 Bilateral primary osteoarthritis of knee; M47.812 Spondylosis without myelopathy or radiculopathy, cervical region; G89.4 Chronic pain syndrome | CPT/HCPCS: 99212 ==

== ENCOUNTER → 2024-08-01 10:51 | Outpatient (BNVA) | payer MEDICARE, SELFPAY | PROVIDERS: PCP Internal Medicine; Visit Provider Anesthesiology ==

== ENCOUNTER 2024-08-07 06:12 | Outpatient (REF) | payer MEDICARE, SELFPAY ==
--- NOTE | ~2024-08-07 | FL_ITS ---
EXAMINATION: FL GUIDANCE ONLY HISTORY: M47.12 - Other spondylosis with myelopathy, cervical region COMPARISON: None available. TECHNIQUE: Fluoroscopy time: 0.1 minutes. Cumulative Dose: 0.308 mGy. DAP: 0.82561 mGym2 Images: 2. FINDINGS: Fluoroscopic spot films of the cervical spine in the AP projection demonstrate a lead in the right neck. FL/FL guidance in treatment room IMPRESSION: Fluoroscopy during procedure. Please see procedure report for additional information. Electronically signed by: Dylan Gordon MD 08/07/2024 02:30 PM EDT
== END 2024-08-07 06:13 | disposition home or self-care (01) ==
LOC: CF 06:12
PROVIDERS: Visit Provider Anesthesiology
DX: M47.12 Other spondylosis with myelopathy, cervical region (principal); M47.22 Other spondylosis with radiculopathy, cervical region; G89.4 Chronic pain syndrome
CPT/HCPCS: 64555; C1778; J2003

== ENCOUNTER 2024-08-07 09:50 | Outpatient (AMB) | payer MEDICARE, SELFPAY ==
[2024-08-07 09:55] VITALS: BP 144/64; PULSE 79; RESP 18; O2SAT 97
--- NOTE | 2024-08-07 09:55 | A.OFFVIS_ITS ---
Vital Signs 08/07/24 09:55 08/07/24 10:27 Weight 140 lb BP 144/64 H 135/71 Blood Pressure Location Lt brachial Lt brachial Position Sitting Sitting Respiration 18 18 Pulse 79 77 Pulse Source Pulse Oximeter Pulse Oximeter Pulse Oximetry (%) 97 98 Oxygen Delivery Method Room Air Room Air Intake Visit Reasons: RIGHT C5 (POSS C6, C4) SPRINT PNS TRIAL Match Up Person Required: No Allergies sulfamethoxazole [From Bactrim] Allergy (Verified 08/07/24 09:55) anaphylaxis trimethoprim [From Bactrim] Allergy (Verified 08/07/24 09:55) anaphylaxis PFSH Medical History Finger pain, left Patent foramen ovale Migraine Hypothyroid HTN (hypertension) Chronic pain syndrome Spondylosis of lumbar spine Osteoarthritis of knees, bilateral Surgical History History of back surgery Hx of section Hx laparoscopic cholecystectomy Social History Patient Tobacco Use Status: Never used Tobacco Second Hand Smoke Exposure: No Physical Exam Vital Signs: Last Vital Signs Pulse 77 08/07/24 10:27 Resp 18 08/07/24 10:27 BP 135/71 08/07/24 10:27 Pulse Ox 98 08/07/24 10:27 Oxygen Delivery Method Room Air 08/07/24 10:27 Office Procedures Sprint PNS Device: Sprint PNS Device [id number] Percutaneous Peripheral Neuroelectrode Procedure: 46789 - Percutaneous Peripheral Neuroelectrode Procedure code (CPT) selection complete Assessment & Plan Assessment & Plan (1) Spondylosis of cervical region without myelopathy or radiculopathy: Code(s): M47.812 - Spondylosis without myelopathy or radiculopathy, cervical region Category: Medical (2) Osteoarthritis of knees, bilateral: Code(s): M17.0 - Bilateral primary osteoarthritis of knee Category: Medical (3) Spondylosis of lumbar spine: Code(s): M47.816 - Spondylosis without myelopathy or radiculopathy, lumbar region Category: Medical (4) Chronic pain syndrome: Code(s): G89.4 - Chronic pain syndrome Category: Medical Plan Percutaneous implantation of peripheral nerve stimulation Sprint system C6 Right side. the risks, benefits and alternatives were discussed with the patient and informed consent was obtained, patient was placed in the prone position and padded to foster comfort. Time out was performed delineating correct site and side of the procedure , name and of the patient, patient participated in time out procedure. Theupper back and posterior neck of the patient was prepped with ChloraPrep and draped with sterile self adhesive utility towels. C-arm was brought over the operating field and clear picture of the C6 lamina on the right was delineated on the screen. The upper central portion of the lamina was chosen as a target of the needle tip insertion . After identifying and marking the intended target, the skin around the planned entry point and the subcutaneous tissues were injected with local anesthetic forming skin wheal.. A percutaneous sleeve and stimulating probe lead introduction system were assembled, inserted and advanced through the skin wheal to the point of interest under C-arm view C6 right lamina., the introducer needle was delivered to a location in proximity to the nerve. Multiple stimulation parameters were used to deliver stimulation to the nerve in concert with stimulating at multiple positions around the nerve. The nerve target acquisition was confirmed noting generation of in the corresponding to the nerve being stimulated. Various electrical parameter combinations were tested, and the lead location was adjusted (physically relocated) until the patient indicated overlapping the distribution of the patient?s typical region of pain. The stimulating probe was removed from the introducer and a percutaneous lead was guided through the needle and delivered to a location in similar proximity to the nerve. Final location was verified with electrical stimulation. The introducer needle was removed, and the exposed end of the percutaneous lead was attached to an external stimulator unit. At the end of the case various electrical parameter combinations were again tested until the patient indicated paresthesia or muscle tension overlapping the distribution of the patient?s typical region of pain. After confirming that lead impedance was in the normal range, the external unit was detached, the needle was removed, and the lead was anchored at the skin. The leads were threaded into the connector block and electrical continuity and desired patient response was confirmed. The connector block was attached to the external stimulator unit. The site was covered with a sterile occlusive dressing and a image was taken to document final placement. Upon completion of the procedure the patient was taken outside the OR where she recovered uneventfully she went home without immediate complications. Orders: Orders FL guidance in treatment room Today M47.12 - Other spondylosis with myelopathy, cervical region, M47.22 - Other spondylosis with radiculopathy, cervical region Coding Level of Care Code Procedure Only Diagnoses Spondylosis of cervical region without myelopathy or radiculopathy M47.812 Osteoarthritis of knees, bilateral M17.0 Spondylosis of lumbar spine M47.816 Chronic pain syndrome G89.4 CPT Codes Sprint PNS - Sprint PNS Device: Sprint PNS Device ([id number]) Sprint PNS - SPRINT: [id number] - Percutaneous Peripheral Neuroelectrode ([id number]) Implantable Device Implantable Device Implantable Devices Qty Senior Financial Analyst Implant Date Expiration Date Analgesic PENS system 1 [employer] 08/07/24
[2024-08-07 10:27] VITALS: BP 135/71; PULSE 77; RESP 18; O2SAT 98
== END 2024-08-07 13:35 | disposition home or self-care (01) ==
LOC: HO.PMCPRC 09:50
PROVIDERS: PCP Internal Medicine; Visit Provider Anesthesiology
DX: M47.812 Spondylosis without myelopathy or radiculopathy, cervical region (principal); M17.0 Bilateral primary osteoarthritis of knee; M47.816 Spondylosis without myelopathy or radiculopathy, lumbar region; G89.4 Chronic pain syndrome
CPT/HCPCS: 64555

== ENCOUNTER 2024-08-15 10:05 | Outpatient (AMB) | payer MEDICARE, SELFPAY ==
[2024-08-15 10:07] VITALS: BP 131/74; PULSE 83; RESP 18; O2SAT 97; BMI 25.6
--- NOTE | 2024-08-15 10:07 | A.OFFVIS_ITS ---
Vital Signs 08/15/24 10:07 Height 5 ft 2 in Weight 140 lb BMI 25.6 BP 131/74 Blood Pressure Location Rt brachial Position Sitting Respiration 18 Pulse 83 Pulse Source Pulse Oximeter Pulse Oximetry (%) 97 Oxygen Delivery Method Room Air Intake Visit Reasons: RIGHT C5 SPRINT PNS TRIAL Digester Operator Required: No Accompanied by: Self / Same As Patient Allergies sulfamethoxazole [From Bactrim] Allergy (Verified 08/15/24 10:15) anaphylaxis trimethoprim [From Bactrim] Allergy (Verified 08/15/24 10:15) anaphylaxis HPI Comments Details: The patient is a 73-year-old female presenting with for follow-up one-week status post right cervical spinal stimulator placement. She is managing the stimulator at a setting of 70, although she experiences persistent itching beneath and around the dressing, which worsens with its presence. There was no application of skin preparation with the recent dressing change, potentially exacerbating the itching. The patient is scheduled for follow-up procedures on the left side next week. - Onset and Timing: Following right cervical spinal stimulator placement one week ago. - Quality and Character: Itching sensation under the dressing and around typical itchy spots on the body. - Primary Location: Cervical area where the stimulator is located. - Exacerbating Factors: Presence of bandage and dressing covering the stimulator site. - Relieving Factors: Adjusting the dressing; temporarily turning off the st imulator. - Interference: Continues daily activities but reports itching discomfort; no interference with stimulator operation. - Affect: Patient reports itching discomfort affecting comfort and potentially psychological wellbeing. - Analgesia: Stimulation setting at 70; some discomfort from itching but not significant direct pain. - Adverse Effects: Persistent itching, potentially related to dressing and stimulation. - Activities of Daily Living: Continues daily activities; dressing/itching may affect comfort. - Aberrant Drug Related Behaviors: None reported or observed. PFSH Medical History Finger pain, left Patent foramen ovale Migraine Hypothyroid HTN (hypertension) Chronic pain syndrome Spondylosis of lumbar spine Osteoarthritis of knees, bilateral Surgical History History of back surgery Hx of section Hx laparoscopic cholecystectomy Social History Patient Tobacco Use Status: Never used Tobacco Second Hand Smoke Exposure: No Review of Systems Const Details: - Integumentary System: Reports localized itching beneath and around the dressing. - Neurological System: Reports sensation of stimulation at set level; no significant pain reported. - General: Denies issues at the stimulator site. Physical Exam Vital Signs: Last Vital Signs Pulse 83 08/15/24 10:07 Resp 18 08/15/24 10:07 BP 131/74 08/15/24 10:07 Pulse Ox 97 08/15/24 10:07 Oxygen Delivery Method Room Air 08/15/24 10:07 BMI result Body Mass Index 25.6 General: awake, alert, oriented. Answers questions appropriately. Fully engaged in examination. Skin: warm, dry, intact HEENT: Normocephalic. Hearing intact. Cardiac: External chest normal in appearance. Respiratory: No cough, audible wheezing or stridor. Abdomen: without gross distension. MS: No obvious swelling or deformities. Neurological: Oriented to person, place, time and situation. Thought process intact. No gait abnormalities appreciated. Psychiatric: Appropriate mood and affect. Good judgment and insight. Sprint dressing change: Existing dressing removed, Area cleansed with chloraprep. Site dry, clean without redness, swelling, warmth, bruising or drainage. Lead secure device removed. Area cleansed again with chloraprep, once dry skin barrier protectant wipe applied. New lead secure device applied, tegaderm applied. Patient tolerated procedure well. Results Reviewed Results Reviewed: MRI lumbar spine 08/24/2018.: Upper lumbar dextroscoliosis. Lower worst lumbar like vertebral body is a transitional segment and is being referred to as S1. S1 is to is a transitional intervertebral disc space and there is no significant canal or neural foraminal compromise at S1-S2 level. Lumbar spine is relative anatomic alignment in sagittal plane. Vertebral body heights are well maintained. There is no spondylosis or spondylolisthesis. The conus terminates at L1-L2 and unremarkable in morphology. No evidence of arachnoiditis the feel inter min alley and intradural nerves roots appear within normal limits. L5-S1: There is evidence of previous a LIF procedure at this level with metallic artifact in the intervertebral disc space with extensive type 2 marrow signal changes along the endplates. There is no significant facet arthrosis and there is no significant canal or neural foraminal stenosis. Mild and planed osteophyte noted on the right minimally encroaching on the inferior right neural foraminal is noted. L4-5: Severe disc space narrowing is noted with diffuse intradiscal high T2 signal intensity with extensive Schmorl's nodes for may hansen and endplate marrow edema with enhancement along the endplates within the adjustment bone marrow which could be secondary to type 1 marrow signal changes. This finding could be secondary to severe discogenic degenerative changes but they also can be spondyloarthropathy spondyloarthritis. Infectious decide is osteomyelitis is considered less likely. There is concentric disc osteophyte complex slightly asymmetric to the right with [id number]-bbvvgdhr flattening of the dural sac and there is prominent dural epidural fat pad and ligamentum flavum thickening with moderate right-sided and mild left-sided facet arthrosis. There is [id number] central canal stenosis without significant lateral recess stenosis and there is gfbz-qb-[id number] bilateral neural foraminal stenosis without neural impingement. There is some marrow edema on both sides of the right L4-L5 facet joints consistent with active facet inflammatory changes. There are small bilateral facet joint effusions. L3-L4 disc space height is mildly narrowed on the left with normal disc signal. There is a mild left paramedial disc protrusion with slight flattening of the left side of the dural sac without significant spondylosis. There is mild facet arthrosis and ligamentum flavum thickening with prominent dorsal epidural fat pad without significant canal or neural foraminal stenosis. L2-L3 disc space height is minimally narrowed on the left with normal disc signal and no significant disc bulge or herniation. No significant spondylosis facet arthrosis canal or neural foraminal stenosis. L1-L2 moderate to severe disc space narrowing is noted with Schmorl's nodes disc desiccation and predominantly type 2 degenerative bone marrow signal changes along the endplates with anterior marginal spondylosis. There is a mild left central to left paramedian disc protrusion with slight flattening of the dural sac on the left. No significant facet arthrosis canal or neural foraminal stenosis. Impression 1. Lumbar dextroscoliosis 2. Status post ALIF procedure at L5-S1 with S1 being transitional level with mild right posterior lateral in plane spurring without significant canal or foraminal compromise. 3. Severe disc space narrowing with intradiscal disc changes extensive Schmorl node formation and reactive marrow edema with enhancement along the endplates at L4-5. Concentric endplate spurring is also noted. These findings can be secondary to spondyloarthritis with severe discogenic degenerative changes and are associated with bilateral facet arthrosis right more than left with probable active inflammatory changes in the right facet joint as detailed above. Oyrs-ax-nrucatue central canal stenosis and jakf-[id number] bilateral neural foraminal stenosis at this level without neural impingement. Suggest clinical follow-up and clinical correlation with inflammatory markers and CBC. Discogenic degenerative changes at L1-L2 with spondylosis and mild left paramed ial disc protrusion. Mild left paramedial disc protrusion at L3-L4. Assessment & Plan Assessment & Plan (1) Spondylosis of cervical region without myelopathy or radiculopathy: Code(s): M47.812 - Spondylosis without myelopathy or radiculopathy, cervical region Category: Medical (2) Osteoarthritis of knees, bilateral: Code(s): M17.0 - Bilateral primary osteoarthritis of knee Category: Medical (3) Spondylosis of lumbar spine: Code(s): M47.816 - Spondylosis without myelopathy or radiculopathy, lumbar region Category: Medical (4) Chronic pain syndrome: Code(s): G89.4 - Chronic pain syndrome Category: Medical Plan The patient will continue with current stimulator settings while monitoring any changes in site comfort and adaptive itching management strategies. The application of skin preparation may aid in reducing local irritation upon dressing changes. Reinforce proper dressing removal techniques to prevent wire displacement. Plan to address the contralateral procedure next week, anticipated to improve bilateral pain management. Continued observation for pain relief is expected with subsequent adjustments and treatments. During the consultation, I provided the patient with education regarding the management of post-operative symptoms, with an emphasis on addressing pruritus under the dressing. I outlined the importance of gentle dressing changes to prevent dislodging the stimulator wire, and discussed possible interventions for itching, including the use of skin preparation to reduce cutaneous reactions. Future procedural interventions include managing the contralateral cervical area to optimize bilateral pain control. I highlighted the expected timeline for symptomatic improvement and the importance of follow-up to ensure effective pain management and device function. Patient was informed and verbally consented to the use of an ambient scribe for clinic note documentation during this visit. Patient Instructions: - Monitor the site for any changes and discomfort. - Adjust stimulation settings only as previously guided. - Carefully remove dressings; ensure any adhesion near wires is carefully managed. - Attend the scheduled appointment next week for further procedure. - Consider applying skin preparation when adjusting dressings to mitigate itchiness. - Contact healthcare provider if significant issues arise. Coding Level of Care Code Est Pt Level 3 (51921) Complex EM visit Add On G2211 Diagnoses Spondylosis of cervical region without myelopathy or radiculopathy M47.812 Osteoarthritis of knees, bilateral M17.0 Spondylosis of lumbar spine M47.816 Chronic pain syndrome G89.4
== END 2024-08-15 11:00 | disposition home or self-care (01) ==
LOC: HO.PMC 10:06
PROVIDERS: PCP Internal Medicine; Visit Provider Registered Nurse Emergency
DX: M47.812 Spondylosis without myelopathy or radiculopathy, cervical region (principal); M17.0 Bilateral primary osteoarthritis of knee; M47.816 Spondylosis without myelopathy or radiculopathy, lumbar region; G89.4 Chronic pain syndrome
CPT/HCPCS: 99024

== ENCOUNTER → 2024-08-15 10:05 | Outpatient (BNVA) | payer MEDICARE, SELFPAY | PROVIDERS: PCP Internal Medicine; Visit Provider Registered Nurse Emergency | DX: M47.812 Spondylosis without myelopathy or radiculopathy, cervical region (principal); M17.0 Bilateral primary osteoarthritis of knee; M47.816 Spondylosis without myelopathy or radiculopathy, lumbar region; G89.4 Chronic pain syndrome | CPT/HCPCS: 99212 ==

== ENCOUNTER 2024-08-21 06:04 | Outpatient (REF) | payer MEDICARE, SELFPAY ==
--- NOTE | ~2024-08-21 | FL_ITS ---
EXAMINATION: XR FLUOROSCOPY WITH IMAGES CLINICAL INFORMATION: Spondylosis without myelopathy or radiculopathy. COMPARISON: 02/23/2024. TECHNIQUE: Fluoroscopy provided to: Dr. Crook Fluoroscopy time: 0.1 minutes DAP: 0.199 mGycm2 Images: 2 FINDINGS: 2 images cervical spine with dorsal lead placement bilaterally. Please refer to the full operative report for detail. FL/FL guidance in treatment room IMPRESSION: Fluoroscopic guidance. Electronically signed by: Chavo Goode MD 08/21/2024 02:08 PM EDT
== END 2024-08-21 06:05 | disposition home or self-care (01) ==
LOC: CF 06:04
PROVIDERS: Visit Provider Anesthesiology
DX: M47.812 Spondylosis without myelopathy or radiculopathy, cervical region (principal); G89.4 Chronic pain syndrome
CPT/HCPCS: 64555; J2003

== ENCOUNTER → 2024-08-21 12:25 | Outpatient (AMB) | payer MEDICARE, SELFPAY ==
--- NOTE | 2024-08-21 12:47 | MHC.OFFVIS ---
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 Allergies sulfamethoxazole [From Bactrim] Allergy (Verified 08/21/24 12:48) anaphylaxis trimethoprim [From Bactrim] Allergy (Verified 08/21/24 12:48) anaphylaxis PFSH Medical History Finger pain, left Patent foramen ovale Migraine Hypothyroid HTN (hypertension) Chronic pain syndrome Spondylosis of lumbar spine Osteoarthritis of knees, bilateral Surgical History History of back surgery Hx of section Hx laparoscopic cholecystectomy Social History Patient Tobacco Use Status: Never used Tobacco Second Hand Smoke Exposure: No Physical Exam Vital Signs: Last Vital Signs Pulse 18 L 08/21/24 12:50 BP 127/68 08/21/24 12:50 Pulse Ox 96 08/21/24 12:50 Oxygen Delivery Method Room Air 08/21/24 12:50 Assessment & Plan Assessment & Plan (1) Spondylosis of cervical region without myelopathy or radiculopathy: Code(s): M47.812 - Spondylosis without myelopathy or radiculopathy, cervical region Category: Medical (2) Osteoarthritis of knees, bilateral: Code(s): M17.0 - Bilateral primary osteoarthritis of knee Category: Medical (3) Spondylosis of lumbar spine: Code(s): M47.816 - Spondylosis without myelopathy or radiculopathy, lumbar region Category: Medical (4) Chronic pain syndrome: Code(s): G89.4 - Chronic pain syndrome Category: Medical Plan Percutaneous implantation of peripheral nerve stimulation Sprint system C6 bilateral. Sterile the risks, benefits and alternatives were discussed with the patient and informed consent was obtained, patient was placed in the prone position and padded to foster comfort. Time out was performed delineating correct site and side of the procedure , name and of the patient, patient participated in time out procedure. The dressing was removed and we noticed that the previously implanted lead was partially withdrawn. C-arm was brought over the field and the tip of the electrode was demonstrated in brief projection of the C7 right lamina. Patient was ask if she is feeling stimulation and she answered : -not anymore. The decision was made to replace the entire system and inserts left as well as the right sprint PNS C6 positioned. The old electrode was removed and the area was prepped with ChloraPrep and draped with sterile self adhesive utility towels. C-arm was brought over the operating field and clear picture of the C6 lamina on the right was delineated on the screen. The upper central portion of the lamina was chosen as a target of the needle tip insertion . After identifying and marking the intended target, the skin around the planned entry point and the subcutaneous tissues were injected with local anesthetic forming skin wheal.. A percutaneous sleeve and stimulating probe lead introduction system were assembled, inserted and advanced through the skin wheal to the point of interest under C-arm view C6 right lamina., the introducer needle was delivered to a location in proximity to the nerve. Multiple stimulation parameters were used to deliver stimulation to the nerve in concert with stimulating at multiple positions around the nerve. The nerve target acquisition was confirmed noting generation of in the corresponding to the nerve being stimulated. Various electrical parameter combinations were tested, and the lead location was adjusted (physically relocated) until the patient indicated overlapping the distribution of the patient?s typical region of pain. The stimulating probe was removed from the introducer and a percutaneous lead was guided through the needle and delivered to a location in similar proximity to the nerve. Final location was verified with electrical stimulation. The introducer needle was removed, and the exposed end of the percutaneous lead was attached to an external stimulator unit. At the end of the case various electrical parameter combinations were again tested until the patient indicated paresthesia or muscle tension overlapping the distribution of the patient?s typical region of pain. After confirming that lead impedance was in the normal range, the external unit was detached, the needle was removed, and the lead was anchored at the skin. The leads were threaded into the connector block and electrical continuity and desired patient response was confirmed. After that the procedure was repeated on the left side in mirroring fashion. The connector block was attached to the external stimulator unit. The site was covered with a sterile occlusive dressing and a image was taken to document final placement. Upon completion of the procedure the patient was taken outside the OR where she recovered uneventfully she went home without immediate complications. 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 08/21/24 Analgesic PENS system 1 [employer] 08/21/24
[2024-08-21 12:50] VITALS: BP 127/68; PULSE 18; O2SAT 96
== END ==
LOC: HO.PMCPRC 12:25
PROVIDERS: PCP Internal Medicine; Visit Provider Anesthesiology
DX: M47.812 Spondylosis without myelopathy or radiculopathy, cervical region (principal); M17.0 Bilateral primary osteoarthritis of knee; M47.816 Spondylosis without myelopathy or radiculopathy, lumbar region; G89.4 Chronic pain syndrome
CPT/HCPCS: 64555

== ENCOUNTER 2024-08-29 10:11 | Outpatient (AMB) | payer MEDICARE, SELFPAY ==
[2024-08-29 10:19] VITALS: BP 119/71; PULSE 81; RESP 18; O2SAT 100
--- NOTE | 2024-08-29 10:19 | A.OFFVIS_ITS ---
Vital Signs 08/29/24 10:19 Weight 142 lb BP 119/71 Blood Pressure Location Lt brachial Position Sitting Respiration 18 Pulse 81 Pulse Source Pulse Oximeter Pulse Oximetry (%) 100 Oxygen Delivery Method Room Air Intake Visit Reasons: LEFT C5 SPRINT PNS TRIAL/PILL COUNT Intake Note: patient states she last took her oxycodone at 8am 08/29/24. 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 She reports excellent mobility of the neck today she reports excellent pain relief up to 80%. She actually presented today on a pill count and this also demonstrates good pain relief because she supposed to come with 21 pills in her possession and she presented with 28 pills in her possession. Therefore we can consider this device very successful in terms of pain relief for this patient. She denies side effects of the opioid medications. She filled up her medication on 08/06/2024. Her next prescription will be due on 09/05/2024. - Onset and Timing: Following right cervical spinal stimulator placement one week ago. - Quality and Character: Itching sensation under the dressing and around typical itchy spots on the body. - Primary Location: Cervical area where the stimulator is located. - Exacerbating Factors: Presence of bandage and dressing covering the stimulator site. - Relieving Factors: Adjusting the dressing; temporarily turning off the stimulator. - Interference: Continues daily activities but reports itching discomfort; no interference with stimulator operation. - Affect: Patient reports itching discomfort affecting comfort and potentially psychological wellbeing. - Analgesia: Stimulation setting at 70; some discomfort from itching but not significant direct pain. - Adverse Effects: Persistent itching, potentially related to dressing and stimulation. - Activities of Daily Living: Continues daily activities; dressing/itching may affect comfort. - Aberrant Drug Related Behaviors: None reported or observed. [facility] Medical History Finger pain, left Patent foramen ovale Migraine Hypothyroid HTN (hypertension) Chronic pain syndrome Spondylosis of lumbar spine Osteoarthritis of knees, bilateral Surgical History History of back surgery Hx of section Hx laparoscopic cholecystectomy Social History Patient Tobacco Use Status: Never used Tobacco Second Hand Smoke Exposure: No Review of Systems Const All systems reviewed & are unremarkable except as noted in HPI and below Physical Exam Vital Signs: Last Vital Signs Pulse 81 08/29/24 10:19 Resp 18 08/29/24 10:19 BP 119/71 08/29/24 10:19 Pulse Ox 100 08/29/24 10:19 Oxygen Delivery Method Room Air 08/29/24 10:19 General: awake, alert, oriented. Answers questions appropriately. Fully engaged in examination. Skin: warm, dry, intact HEENT: Normocephalic. Hearing intact. Cardiac: External chest normal in appearance. Respiratory: No cough, audible wheezing or stridor. Abdomen: without gross distension. MS: No obvious swelling or deformities. Neurological: Oriented to person, place, time and situation. Thought process intact. No gait abnormalities appreciated. Psychiatric: Appropriate mood and affect. Good judgment and insight. Sprint dressing change: Existing dressing removed, Area cleansed with chloraprep. Site dry, clean without redness, swelling, warmth, bruising or drainage. Lead secure device removed. Area cleansed again with chloraprep, once dry skin barrier protectant wipe applied. New lead secure device applied, tegaderm applied. Patient tolerated procedure well. Assessment & Plan Assessment & Plan (1) Spondylosis of cervical region without myelopathy or radiculopathy: Code(s): M47.812 - Spondylosis without myelopathy or radiculopathy, cervical region Category: Medical (2) Osteoarthritis of knees, bilateral: Code(s): M17.0 - Bilateral primary osteoarthritis of knee Category: Medical (3) Spondylosis of lumbar spine: Code(s): M47.816 - Spondylosis without myelopathy or radiculopathy, lumbar region Category: Medical (4) Chronic pain syndrome: Code(s): G89.4 - Chronic pain syndrome Category: Medical Plan She will continue sprint PNS until the next 7 weeks. She will visit us for removal of the device in 7 weeks. She will continue to be seen by nursing for dressing changes here in the office. Mobility limitations were remind the to the patient. Hygiene limitations were also briefly discussed. The patient will be seen in 1 month for pill count. Her standard oxycodone dose was prescribed on 09/05/2024 She has naloxone prescription. Medications: Refilled oxycodone Partial Fill upon patient request. 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
== END 2024-08-29 10:41 | disposition home or self-care (01) ==
LOC: HO.PMC 10:11
PROVIDERS: PCP Internal Medicine; Visit Provider Anesthesiology
DX: M47.812 Spondylosis without myelopathy or radiculopathy, cervical region (principal); M17.0 Bilateral primary osteoarthritis of knee; M47.816 Spondylosis without myelopathy or radiculopathy, lumbar region; G89.4 Chronic pain syndrome
CPT/HCPCS: 99024

== ENCOUNTER → 2024-08-29 10:11 | Outpatient (BNVA) | payer MEDICARE, SELFPAY | PROVIDERS: PCP Internal Medicine; Visit Provider Anesthesiology | DX: Z51.81 Encounter for therapeutic drug level monitoring (principal); M47.812 Spondylosis without myelopathy or radiculopathy, cervical region; M17.0 Bilateral primary osteoarthritis of knee; M47.816 Spondylosis without myelopathy or radiculopathy, lumbar region; G89.4 Chronic pain syndrome | CPT/HCPCS: 99212 ==

== ENCOUNTER 2024-09-27 10:19 | Outpatient (AMB) | payer MEDICARE, SELFPAY ==
[2024-09-27 10:24] VITALS: BP 128/63; PULSE 77; RESP 18; O2SAT 98
--- NOTE | 2024-09-27 10:24 | MHC.OFFVIS ---
Vital Signs 09/27/24 10:24 Weight 142 lb BP 128/63 Blood Pressure Location Lt brachial Position Sitting Respiration 18 Pulse 77 Pulse Source Pulse Oximeter Pulse Oximetry (%) 98 Oxygen Delivery Method Room Air Intake Visit Reasons: PILL COUNT Intake Note: pt states she last took her oxycodone today at 8am 09/27/24. StephenT says she should have 24 pills left and she presented with 31 Allergies sulfamethoxazole (From Bactrim) Allergy (Verified 09/27/24 10:25) anaphylaxis trimethoprim (From Bactrim) Allergy (Verified 09/27/24 10:25) anaphylaxis HPI Comments Details: Marilyn is back in my office for the follow-up and pill count. She presented today with 31 pills in her possession. She supposed to have only 24 pills in her possession. She is due for refill of her medication on 10/05/2024. She denies side effects of the opioid medications. She denies constipation. She requests me to start treatment of the lumbar spine with sprint PNS again. She received as you can see below to stimulation for the lumbar spine: 1 was done in November of 2022 and 1 was done in January of 2024. Each time she reported 9 months of very good pain relief with improved mobility, improved activities of daily living, improved social interactions and at least 80% pain improvement. Now her pain in the back is getting stronger and she requests me to schedule her for sprint PNS. She is currently wearing sprint PNS for the cervical spine. She reports excellent pain relief in the neck up to 95%. Prior: She completed insertion of bilateral sprint PNS for the cervical spine on 08/21/2024. She completed 2nd treatment of her sprint PNS for the lumbar spine 2 weeks ago in the beginning of 01/25/2024. Sprint PNS in November of 2022 resulted on very good prolonged pain relief up to 8-9 months. She denies side effects of the opioid medications she denies constipation. I will prescribe her medications on 07/07/2024. [facility] Medical History Finger pain, left Patent foramen ovale Migraine Hypothyroid HTN (hypertension) Chronic pain syndrome Spondylosis of lumbar spine Osteoarthritis of knees, bilateral Surgical History History of back surgery Hx of section Hx laparoscopic cholecystectomy Social History Patient Tobacco Use Status: Never used Tobacco Second Hand Smoke Exposure: No Review of Systems Const All systems reviewed & are unremarkable except as noted in HPI and below ENT Reports Normal hearing present Neuro Reports Normal hearing present, Denies Abnormal speech present, Denies confusion and Denies Sensory deficit (Neuro) Psych Denies confusion Physical Exam Vital Signs: Last Vital Signs Pulse 77 09/27/24 10:24 Resp 18 09/27/24 10:24 BP 128/63 09/27/24 10:24 Pulse Ox 98 09/27/24 10:24 Oxygen Delivery Method Room Air 09/27/24 10:24 Const General: no acute distress; No confusion Orientation/consciousness: patient oriented x3 and No confusion Eyes General: appearance normal, both eyes and all related structures Pupils: Equal, round and reactive pupils present EOM: EOMs intact bilaterally Neck Other: Limited range of motion cervical spine. Tenderness on palpation in the paraspinal spinal region of the cervical spine. Valsalva is negative for pain exacerbation. Flexing head backwards and axial compression of the cervical spine aggravate the pain. Neck: No full ROM Chest Chest palpation & inspection: normal inspection of the chest Resp Effort & Inspection: normal respiratory effort, able to speak in complete sentences, normal respiratory pattern, no audible wheezes and no cough Cardio Jugular venous distension: no JVD GI Inspection: Yes normal to inspection Back/Spine/Pelvis Other: Tenderness on palpation in paraspinal spinal region lumbar spine, loading test was positive bilaterally. Flexing forward alleviates the pain and flexing backwards aggravates the pain. Neuro General: patient oriented x3, gait normal and No confusion Cranial nerves: Yes CN's II-XII intact bilaterally, Yes Equal, round and reactive pupils present, Yes Normal hearing present and Yes Ability to bilaterally elevate shoulders present Speech: No Abnormal speech present Gait exam (Neuro): Normal gait present Motor exam (neuro): 5/5 motor strength present throughout Sensory Exam: No Sensory deficit (Neuro) Extrem General: No pedal edema Psych Speech and movement: Normal speech and movement present Affect: normal affect Attitude: cooperative Thought process: Normal thought process present Thought content: Normal thought content present Insight: Good insight present (Psych) Judgement: Good judgement present (Psych) Results Reviewed Results Reviewed: MRI lumbar spine 08/24/2018.: Upper lumbar dextroscoliosis. Lower worst lumbar like vertebral body is a transitional segment and is being referred to as S1. S1 is to is a transitional intervertebral disc space and there is no significant canal or neural foraminal compromise at S1-S2 level. Lumbar spine is relative anatomic alignment in sagittal plane. Vertebral body heights are well maintained. There is no spondylosis or spondylolisthesis. The conus terminates at L1-L2 and unremarkable in morphology. No evidence of arachnoiditis the feel inter min alley and intradural nerves roots appear within normal limits. L5-S1: There is evidence of previous a LIF procedure at this level with metallic artifact in the intervertebral disc space with extensive type 2 marrow signal changes along the endplates. There is no significant facet arthrosis and there is no significant canal or neural foraminal stenosis. Mild and planed osteophyte noted on the right minimally encroaching on the inferior right neural foraminal is noted. L4-5: Severe disc space narrowing is noted with diffuse intradiscal high T2 signal intensity with extensive Schmorl's nodes for may hansen and endplate marrow edema with enhancement along the endplates within the adjustment bone marrow which could be secondary to type 1 marrow signal changes. This finding could be secondary to severe discogenic degenerative changes but they also can be spondyloarthropathy spondyloarthritis. Infectious decide is osteomyelitis is considered less likely. There is concentric disc osteophyte complex slightly asymmetric to the right with bkgo-ty-lswxikei flattening of the dural sac and there is prominent dural epidural fat pad and ligamentum flavum thickening with moderate right-sided and mild left-sided facet arthrosis. There is ierh-se-nnkvlvuy central canal stenosis without significant lateral recess stenosis and there is fibu-ro-wpjirzoi bilateral neural foraminal stenosis without neural impingement. There is some marrow edema on both sides of the right L4-L5 facet joints consistent with active facet inflammatory changes. There are small bilateral facet joint effusions. L3-L4 disc space height is mildly narrowed on the left with normal disc signal. There is a mild left paramedial disc protrusion with slight flattening of the left side of the dural sac without significant spondylosis. There is mild facet arthrosis and ligamentum flavum thickening with prominent dorsal epidural fat pad without significant canal or neural foraminal stenosis. L2-L3 disc space height is minimally narrowed on the left with normal disc signal and no significant disc bulge or herniation. No significant spondylosis facet arthrosis canal or neural foraminal stenosis. L1-L2 moderate to severe disc space narrowing is noted with Schmorl's nodes disc desiccation and predominantly type 2 degenerative bone marrow signal changes along the endplates with anterior marginal spondylosis. There is a mild left central to left paramedian disc protrusion with slight flattening of the dural sac on the left. No significant facet arthrosis canal or neural foraminal stenosis. Impression 1. Lumbar dextroscoliosis 2. Status post ALIF procedure at L5-S1 with S1 being transitional level with mild right posterior lateral in plane spurring without significant canal or foraminal compromise. 3. Severe disc space narrowing with intradiscal disc changes extensive Schmorl node formation and reactive marrow edema with enhancement along the endplates at L4-5. Concentric endplate spurring is also noted. These findings can be secondary to spondyloarthritis with severe discogenic degenerative changes and are associated with bilateral facet arthrosis right more than left with probable active inflammatory changes in the right facet joint as detailed above. Pluc-iw-ubwlpgef central canal stenosis and bjow-xa-ngabdzda bilateral neural foraminal stenosis at this level without neural impingement. Suggest clinical follow-up and clinical correlation with inflammatory markers and CBC. Discogenic degenerative changes at L1-L2 with spondylosis and mild left paramedial disc protrusion. Mild left paramedial disc protrusion at L3-L4. Assessment & Plan Assessment & Plan (1) Spondylosis of cervical region without myelopathy or radiculopathy: Code(s): M47.812 - Spondylosis without myelopathy or radiculopathy, cervical region Category: Medical (2) Osteoarthritis of knees, bilateral: Code(s): M17.0 - Bilateral primary osteoarthritis of knee Category: Medical (3) Spondylosis of lumbar spine: Code(s): M47.816 - Spondylosis without myelopathy or radiculopathy, lumbar region Category: Medical (4) Chronic pain syndrome: Code(s): G89.4 - Chronic pain syndrome Category: Medical Plan She will continue sprint PNS for the cervical spine, she reports while stimulation of the cervical spine is in place 95% pain improvement excellent mobility of the cervical spine, good activities of daily living and excellent social interactions. She reports the pain in the lower back is coming back. She was successfully treated for this condition with sprint PNS in the L5 positioned bilateral in 2022 and 2023. Each time she reported 80% pain improvement during and after stimulation with improved mobility and improved activities of daily living. She has an current opioid therapy. He has a excess of the medications in her possession which she is result of interventional pain management. I will schedule this patient for right and after that left L5 sprint PNS. Today 09/27/2024 I refilled her naloxone prescription. Medications: Refilled oxycodone Partial Fill upon patient request. 5 mg PO TID PRN 90 tabs 0RF pain 30 days G89.4 - Chronic pain syndrome, M17.0 - Bilateral primary osteoarthritis of knee, M19.011 - Primary osteoarthritis, right shoulder, M19.012 - Primary osteoarthritis, left shoulder, M47.816 - Spondylosis without myelopathy or radiculopathy, lumbar region, Z79.891 - [facility] (current) use of opiate analgesic naloxone 4 mg/actuation spray 1 dose into ONE nostril; alternate nostrils w each dose until help arrives 4 mg intranasal Q3M PRN 2 ea 1RF opioid overdose Coding Level of Care Code Est Pt Level 3 (45451) Diagnoses Spondylosis of cervical region without myelopathy or radiculopathy M47.812 Osteoarthritis of knees, bilateral M17.0 Spondylosis of lumbar spine M47.816 Chronic pain syndrome G89.4
== END 2024-09-27 10:49 | disposition home or self-care (01) ==
LOC: HO.PMC 10:20
PROVIDERS: PCP Internal Medicine; Visit Provider Anesthesiology
DX: M47.812 Spondylosis without myelopathy or radiculopathy, cervical region (principal); M17.0 Bilateral primary osteoarthritis of knee; M47.816 Spondylosis without myelopathy or radiculopathy, lumbar region; G89.4 Chronic pain syndrome
CPT/HCPCS: 99213

== ENCOUNTER → 2024-09-27 10:19 | Outpatient (BNVA) | payer MEDICARE, SELFPAY | PROVIDERS: PCP Internal Medicine; Visit Provider Anesthesiology | DX: Z51.81 Encounter for therapeutic drug level monitoring (principal); M47.812 Spondylosis without myelopathy or radiculopathy, cervical region; M17.0 Bilateral primary osteoarthritis of knee; M47.816 Spondylosis without myelopathy or radiculopathy, lumbar region; G89.4 Chronic pain syndrome; Z79.891 Long term (current) use of opiate analgesic | CPT/HCPCS: 99212 ==

== ENCOUNTER 2024-10-25 11:06 | Outpatient (AMB) | payer MEDICARE, SELFPAY ==
--- NOTE | 2024-10-25 11:25 | A.OFFVIS_ITS ---
Vital Signs 10/25/24 11:26 Weight 142 lb BP 130/68 Blood Pressure Location Lt brachial Position Sitting Respiration 18 Pulse 83 Pulse Source Pulse Oximeter Pulse Oximetry (%) 94 Oxygen Delivery Method Room Air Intake Visit Reasons: PILL COUNT Intake Note: pt states she last tookher oxycodone at 8 am 10.25.24. StephenT says she should have 42 pills, she presented with 46 pills Material Requisitioner Required: No Allergies sulfamethoxazole (From Bactrim) Allergy (Verified 10/25/24 11:25) anaphylaxis trimethoprim (From Bactrim) Allergy (Verified 10/25/24 11:) anaphylaxis HPI Comments Details: Marilyn is back in my office for the follow-up and pill count. She reports new pain generators today she reports pain in the left hip area. She reports pain radiating in the groin. She was examined see the physical exam as below. Pill count was performed today. She presented herself with 46 pills in her possession. She supposed to have only 42 pills in her possession. This demonstrates responsible attitude to were the opioid medications. She is reporting good pain relief from sprint PNS. 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 Prior: She completed insertion of bilateral sprint PNS for the cervical spine on 08/21/2024. She completed 2nd treatment of her sprint PNS for the lumbar spine 2 weeks ago in the beginning of 01/25/2024. Sprint PNS in November of 2022 resulted on very good prolonged pain relief up to 8-9 months. She denies side effects of the opioid medications she denies constipation. I will prescribe her medications on 07/07/2024. [facility]LY [facility] Medical History Finger pain, left Patent foramen ovale Migraine Hypothyroid HTN (hypertension) Chronic pain syndrome Spondylosis of lumbar spine Osteoarthritis of knees, bilateral Surgical History History of back surgery Hx of section Hx laparoscopic cholecystectomy Social History Patient Tobacco Use Status: Never used Tobacco Second Hand Smoke Exposure: No Review of Systems Const All systems reviewed & are unremarkable except as noted in HPI and below ENT Reports Normal hearing present Neuro Reports Normal hearing present, Denies Abnormal speech present, Denies confusion and Denies Sensory deficit (Neuro) Psych Denies confusion Physical Exam Vital Signs: Last Vital Signs Pulse 83 10/25/24 11:26 Resp 18 10/25/24 11:26 BP 130/68 10/25/24 11:26 Pulse Ox 94 10/25/24 11:26 Oxygen Delivery Method Room Air 10/25/24 11:26 Const General: no acute distress; No confusion Orientation/consciousness: patient oriented x3 and No confusion Eyes General: appearance normal, both eyes and all related structures Pupils: Equal, round and reactive pupils present EOM: EOMs intact bilaterally Neck Other: Limited range of motion cervical spine. Tenderness on palpation in the paraspinal spinal region of the cervical spine. Valsalva is negative for pain exacerbation. Flexing head backwards and axial compression of the cervical spine aggravate the pain. Neck: No full ROM Chest Chest palpation & inspection: normal inspection of the chest Resp Effort & Inspection: normal respiratory effort, able to speak in complete sentences, normal respiratory pattern, no audible wheezes and no cough Cardio Jugular venous distension: no JVD GI Inspection: Yes normal to inspection Back/Spine/Pelvis Other: Tenderness on palpation in paraspinal spinal region lumbar spine, loading test was positive bilaterally. Flexing forward alleviates the pain and flexing backwards aggravates the pain. Neuro General: patient oriented x3, gait normal and No confusion Cranial nerves: Yes CN's II-XII intact bilaterally, Yes Equal, round and reactive pupils present, Yes Normal hearing present and Yes Ability to bilaterally elevate shoulders present Speech: No Abnormal speech present Gait exam (Neuro): Normal gait present Motor exam (neuro): 5/5 motor strength present throughout Sensory Exam: No Sensory deficit (Neuro) Extrem Other: Lateral rotation of the left hip and medial rotation of the left hip cause severe discomfort in the groin. General: No pedal edema Psych Speech and movement: Normal speech and movement present Affect: normal affect Attitude: cooperative Thought process: Normal thought process present Thought content: Normal thought content present Insight: Good insight present (Psych) Judgement: Good judgement present (Psych) Assessment & Plan Assessment & Plan (1) Osteoarthritis of left hip: Code(s): M16.12 - Unilateral primary osteoarthritis, left hip Category: Medical (2) Left hip pain: Code(s): M25.552 - Pain in left hip Category: Medical (3) Spondylosis of cervical region without myelopathy or radiculopathy: Code(s): M47.812 - Spondylosis without myelopathy or radiculopathy, cervical region Category: Medical (4) Osteoarthritis of knees, bilateral: Code(s): M17.0 - Bilateral primary osteoarthritis of knee Category: Medical (5) Spondylosis of lumbar spine: Code(s): M47.816 - Spondylosis without myelopathy or radiculopathy, lumbar region Category: Medical (6) Chronic pain syndrome: Code(s): G89.4 - Chronic pain syndrome Category: Medical Plan Good results of the sprint PNS for cervical spine and lumbar spine. Now she presents with new pain generators of hip joint. I will send her for x-ray of the left hip. I will also schedule her for left hip steroid injections. She has an current opioid therapy. He has a excess of the medications in her possession which she is result of interventional pain management. 09/27/2024 naloxone prescription was issued. Orders: Orders XR hip LT min 2V Today M16.12 - Unilateral primary osteoarthritis, left hip, M25.552 - Pain in left hip Medications: Refilled oxycodone Partial Fill upon patient request. 5 mg PO TID PRN 90 tabs 0RF pain 30 days G89.4 - Chronic pain syndrome, M17.0 - Bilateral primary osteoarthritis of knee, M19.011 - Primary osteoarthritis, right shoulder, M19.012 - Primary osteoarthritis, left shoulder, M47.816 - Spondylosis without myelopathy or radiculopathy, lumbar region, Z79.891 - shelter (current) use of opiate analgesic Patient Instructions: I hereby testify that I spent 30 minutes in conversation with this patient as well as planning her care and organizing this note. Coding Level of Care Code Est Pt Level 4 (59805) Diagnoses Osteoarthritis of left hip M16.12 Left hip pain M25.552 Spondylosis of cervical region without myelopathy or radiculopathy M47.812 Osteoarthritis of knees, bilateral M17.0 Spondylosis of lumbar spine M47.816 Chronic pain syndrome G89.4
[2024-10-25 11:26] VITALS: BP 130/68; PULSE 83; RESP 18; O2SAT 94
== END 2024-10-25 11:45 | disposition home or self-care (01) ==
LOC: HO.PMC 11:07
PROVIDERS: PCP Internal Medicine; Visit Provider Anesthesiology
DX: M16.12 Unilateral primary osteoarthritis, left hip (principal); M25.552 Pain in left hip; M47.812 Spondylosis without myelopathy or radiculopathy, cervical region; M17.0 Bilateral primary osteoarthritis of knee; M47.816 Spondylosis without myelopathy or radiculopathy, lumbar region; G89.4 Chronic pain syndrome
CPT/HCPCS: 99214

== ENCOUNTER 2024-10-25 11:06 | Outpatient (REF) | payer MEDICARE, SELFPAY ==
--- NOTE | ~2024-10-25 | XR_ITS ---
EXAMINATION: XR HIP, LEFT CLINICAL INFORMATION: M16.12 - Unilateral primary osteoarthritis, left hip COMPARISON: M16.12 - Unilateral primary osteoarthritis, left hip TECHNIQUE: Two views of the left hip. FINDINGS: Surgical clips are seen in the left upper hemipelvis. Left hip joint space is congruent and preserved. There are no osteophytes or erosions. There is no deformity. There is no soft tissue calcification. XR/XR hip LT min 2V IMPRESSION: Unremarkable left hip. Electronically signed by: Wayne Tolbert MD 10/25/2024 12:59 PM EDT
== END 2024-10-25 11:07 | disposition home or self-care (01) ==
LOC: HO.LAB 11:06
PROVIDERS: PCP Internal Medicine; Visit Provider Anesthesiology
DX: M16.12 Unilateral primary osteoarthritis, left hip (principal); M25.552 Pain in left hip; M47.812 Spondylosis without myelopathy or radiculopathy, cervical region; M17.0 Bilateral primary osteoarthritis of knee; M47.816 Spondylosis without myelopathy or radiculopathy, lumbar region; G89.4 Chronic pain syndrome; M19.011 Primary osteoarthritis, right shoulder; M19.012 Primary osteoarthritis, left shoulder; Z79.891 Long term (current) use of opiate analgesic
CPT/HCPCS: 73502; 99212

== ENCOUNTER → 2024-10-25 12:02 | Outpatient (BNV) | payer MEDICARE, SELFPAY | PROVIDERS: PCP Internal Medicine; Visit Provider Radiology Diagnostic Radiology | DX: M16.12 Unilateral primary osteoarthritis, left hip (principal) | CPT/HCPCS: 73502 ==

== ENCOUNTER 2024-11-13 06:24 | Outpatient (REF) | payer MEDICARE, SELFPAY ==
--- NOTE | ~2024-11-13 | FL_ITS ---
EXAMINATION: FL GUIDANCE ONLY HISTORY: M25.552 - Pain in left hip COMPARISON: None available. TECHNIQUE: Fluoroscopy time: 0.1 minute. Cumulative Dose: 1.89 mGy. DAP: 0.0241 mGym2 Images: 2. FINDINGS: Fluoroscopic spot films of the left hip demonstrate a needle in place and contrast material in the joint space. FL/FL guidance in treatment room IMPRESSION: Fluoroscopy during procedure. Please see procedure report for additional information. Electronically signed by: Dylan Gordon MD 11/13/2024 03:00 PM EDT
== END 2024-11-13 06:25 | disposition home or self-care (01) ==
LOC: CF 06:24
PROVIDERS: Visit Provider Anesthesiology
DX: M16.12 Unilateral primary osteoarthritis, left hip (principal)
CPT/HCPCS: 20610; J2003; J2795; J3301; Q9967

== ENCOUNTER 2024-11-13 14:27 | Outpatient (AMB) | payer MEDICARE, SELFPAY ==
--- NOTE | 2024-11-13 14:35 | MHC.OFFVIS ---
Vital Signs 11/13/24 14:36 Height 5 ft 2 in Weight 142 lb BMI 26.0 BP 128/70 Blood Pressure Location Lt brachial Position Sitting Respiration 18 Pulse 78 Pulse Source Pulse Oximeter Pulse Oximetry (%) 95 Oxygen Delivery Method Room Air Intake Visit Reasons: Left hip ing w/ fluoro/ ativan Forensic Science Examiner Required: No Allergies sulfamethoxazole (From Bactrim) Allergy (Verified 10/25/24 11:25) anaphylaxis trimethoprim (From Bactrim) Allergy (Verified 10/25/24 11:25) anaphylaxis PFSH Medical History Finger pain, left Patent foramen ovale Migraine Hypothyroid HTN (hypertension) Chronic pain syndrome Spondylosis of lumbar spine Osteoarthritis of knees, bilateral Surgical History History of back surgery Hx of section Hx laparoscopic cholecystectomy Social History Patient Tobacco Use Status: Never used Tobacco Second Hand Smoke Exposure: No Physical Exam Vital Signs: Last Vital Signs Pulse 78 11/13/24 14:36 Resp 18 11/13/24 14:36 BP 128/70 11/13/24 14:36 Pulse Ox 95 11/13/24 14:36 Oxygen Delivery Method Room Air 11/13/24 14:36 BMI result Body Mass Index 26.0 Assessment & Plan Assessment & Plan (1) Osteoarthritis of left hip: Code(s): M16.12 - Unilateral primary osteoarthritis, left hip Category: Medical Plan Intra-articular left hip steroid injection. Informed consent was explained to the patient. All questions were explained and? answered.? The patient was taken inside the operating room where he was positioned RIGHT lateral decubitus on the operating table.? Time-out was performed delineating correct site, side, the nature of the procedure, patient's allergy, preoperative antibiotic if needed.? All operating room staff was participating in OR time-out procedure.? Non dependent LEFT hip was prepped with ChloraPrep and draped with sterile towels.? Sterilely draped C-arm was brought over the operating field and the picture of bilateral hip joints were obtained on the screen.? The smaller joint was chosen as the target for the injection.? The trochanter position was noted on the screen.? The projection of the trochanter to the skin was noted, the direction of the femoral neck was noted.? The skin was anesthetized using 2% lidocaine at the trochanter area.? 22 gauge 7 in needle was inserted through the skin and advanced to the hip joint silhouette on anterior posterior view.? When needle entered the joint the injection of the contrast was performed demonstrating intra-articular spread of the contrast.? After that 5 cc of bupivacaine mixed with 40 mg of Kenalog was injected into the area.? The needle was removed sterile dressing was applied Orders: Orders FL guidance in treatment room 11/13/24 M25.552 - Pain in left hip Medications: New lorazepam (Ativan) Take 30 minutes prior to arrival to procedure 1 mg PO ONCE 1 tab 0RF anxiety Coding Level of Care Code Procedure Only Diagnoses Osteoarthritis of left hip M16.12
[2024-11-13 14:36] VITALS: BP 128/70; PULSE 78; RESP 18; O2SAT 95; BMI 26.0
== END 2024-11-13 15:00 | disposition home or self-care (01) ==
LOC: HO.PMCPRC 14:27
PROVIDERS: PCP Internal Medicine; Visit Provider Anesthesiology
DX: M16.12 Unilateral primary osteoarthritis, left hip (principal)
CPT/HCPCS: 20610; 77002

== ENCOUNTER 2024-11-20 06:19 | Outpatient (REF) | payer MEDICARE, SELFPAY ==
--- NOTE | ~2024-11-20 | FL_ITS ---
EXAMINATION: FL GUIDANCE ONLY HISTORY: M47.816 - Spondylosis without myelopathy or radiculopathy, lumbar region COMPARISON: None available. TECHNIQUE: Fluoroscopy time: 0.1 minute. Cumulative Dose: 1.34 mGy. DAP: 0.0226 mGym2 Images: 1. FINDINGS: A single fluoroscopic spot film of the lower lumbar spine in the AP projection demonstrates an electrode in place on the right. FL/FL guidance in treatment room IMPRESSION: Fluoroscopy during procedure. Please see procedure report for additional information. Electronically signed by: Dylan Gordon MD 11/20/2024 12:12 PM EDT
== END 2024-11-20 06:20 | disposition home or self-care (01) ==
LOC: CF 06:19
PROVIDERS: Visit Provider Anesthesiology
DX: M47.816 Spondylosis without myelopathy or radiculopathy, lumbar region (principal)
CPT/HCPCS: 64555; C1778; J2003

== ENCOUNTER 2024-11-20 08:26 | Outpatient (AMB) | payer MEDICARE, SELFPAY ==
[2024-11-20 08:32] VITALS: BP 126/72; PULSE 79; RESP 18; O2SAT 95
--- NOTE | 2024-11-20 08:32 | MHC.OFFVIS ---
Vital Signs 11/20/24 08:32 Weight 142 lb BP 126/72 Blood Pressure Location Lt brachial Position Sitting Respiration 18 Pulse 79 Pulse Source Pulse Oximeter Pulse Oximetry (%) 95 Oxygen Delivery Method Room Air Intake Visit Reasons: RIGHT SPRINT PNS L5 It Service Continuity Supervisor Required: No Allergies sulfamethoxazole (From Bactrim) Allergy (Verified 10/25/24 11:25) anaphylaxis trimethoprim (From Bactrim) Allergy (Verified 10/25/24 11:25) anaphylaxis PFSH Medical History Finger pain, left Patent foramen ovale Migraine Hypothyroid HTN (hypertension) Chronic pain syndrome Spondylosis of lumbar spine Osteoarthritis of knees, bilateral Surgical History History of back surgery Hx of section Hx laparoscopic cholecystectomy Social History Patient Tobacco Use Status: Never used Tobacco Second Hand Smoke Exposure: No Physical Exam Vital Signs: Last Vital Signs Pulse 79 11/20/24 08:32 Resp 18 11/20/24 08:32 BP 126/72 11/20/24 08:32 Pulse Ox 95 11/20/24 08:32 Oxygen Delivery Method Room Air 11/20/24 08:32 Assessment & Plan Assessment & Plan (1) Spondylosis of lumbar region without myelopathy or radiculopathy: Code(s): M47.816 - Spondylosis without myelopathy or radiculopathy, lumbar region Category: Medical Plan Percutaneous implantation of peripheral nerve stimulation Sprint system L5 right side. the risks, benefits and alternatives were discussed with the patient and informed consent was obtained, patient was placed in the prone position and padded to foster comfort. Time out was performed delineating correct site and side of the procedure , name and of the patient, patient participated in time out procedure. Theupper back and posterior neck of the patient was prepped with ChloraPrep and draped with sterile self adhesive utility towels. C-arm was brought over the operating field and clear picture of the L5 lamina on the right was delineated on the screen. The upper central portion of the lamina was chosen as a target of the needle tip insertion . After identifying and marking the intended target, the skin around the planned entry point and the subcutaneous tissues were injected with local anesthetic forming skin wheal.. A percutaneous sleeve and stimulating probe lead introduction system were assembled, inserted and advanced through the skin wheal to the point of interest under C-arm viewL Riht L5 lamina., the introducer needle was delivered to a location in proximity to the nerve. Multiple stimulation parameters were used to deliver stimulation to the nerve in concert with stimulating at multiple positions around the nerve. The nerve target acquisition was confirmed noting generation of in the corresponding to the nerve being stimulated. Various electrical parameter combinations were tested, and the lead location was adjusted (physically relocated) until the patient indicated overlapping the distribution of the patient?s typical region of pain. The stimulating probe was removed from the introducer and a percutaneous lead was guided through the needle and delivered to a location in similar proximity to the nerve. Final location was verified with electrical stimulation. The introducer needle was removed, and the exposed end of the percutaneous lead was attached to an external stimulator unit. At the end of the case various electrical parameter combinations were again tested until the patient indicated paresthesia or muscle tension overlapping the distribution of the patient?s typical region of pain. After confirming that lead impedance was in the normal range, the external unit was detached, the needle was removed, and the lead was anchored at the skin. The leads were threaded into the connector block and electrical continuity and desired patient response was confirmed. The connector block was attached to the external stimulator unit. The site was covered with a sterile occlusive dressing and a image was taken to document final placement. Upon completion of the procedure the patient was taken outside the OR where she recovered uneventfully she went home without immediate complications. Orders: Orders FL guidance in treatment room Today M47.816 - Spondylosis without myelopathy or radiculopathy, lumbar region Coding Level of Care Code Procedure Only Diagnoses Spondylosis of lumbar region without myelopathy or radiculopathy M47.816 Implantable Device Implantable Device Implantable Devices [employer] Counter Manager Implant Date Expiration Date Analgesic PENS system 1 [employer] 11/20/24
== END 2024-11-20 09:07 | disposition home or self-care (01) ==
LOC: HO.PMCPRC 08:26
PROVIDERS: PCP Internal Medicine; Visit Provider Anesthesiology
DX: M47.816 Spondylosis without myelopathy or radiculopathy, lumbar region (principal)
CPT/HCPCS: 64555

== ENCOUNTER 2024-11-22 10:22 | Outpatient (AMB) | payer MEDICARE, SELFPAY ==
--- NOTE | 2024-11-22 10:30 | MHC.OFFVIS ---
Vital Signs 11/22/24 10:31 Weight 142 lb BP 124/65 Blood Pressure Location Lt brachial Position Sitting Respiration 18 Pulse 79 Pulse Source Pulse Oximeter Pulse Oximetry (%) 100 Oxygen Delivery Method Room Air Intake Visit Reasons: PILL COUNT Intake Note: pt states she lsjaclyn took her oxycodone at 8 am 11/22/24 [facility] says she should have 48 she presented with 52 Allergies sulfamethoxazole (From Bactrim) Allergy (Verified 11/22/24 10:32) anaphylaxis trimethoprim (From Bactrim) Allergy (Verified 11/22/24 10:32) anaphylaxis HPI Comments Details: Marilyn is back in my office for the follow-up and pill count. She reports very good pain relief from both cervical and and lower back peripheral nerve stimulation sprint. She states that she is very satisfied with care she is provided with us. Currently she is wearing right-sided sprint PNS into weeks we will completed with left-sided device. She is here for pill count today, her pill count is correct she presented with 52 pills in her possession. She supposed to have 48 pills in her possession. That reflects good pain relief from interventional pain management and demonstrates responsible attitude from opioid medications. Her prescription is due on 12/08/2024. She reports new pain generators today she reports pain in the left hip area. She reports pain radiating in the groin. She was examined see the physical exam as below. Pill count was performed today. She presented herself with 46 pills in her possession. She supposed to have only 42 pills in her possession. This demonstrates responsible attitude to were the opioid medications. She is reporting good pain relief from sprint PNS. 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 Prior: She completed insertion of bilateral sprint PNS for the cervical spine on 08/21/2024. She completed 2nd treatment of her sprint PNS for the lumbar spine 2 weeks ago in the beginning of 01/25/2024. Sprint PNS in November of 2022 resulted on very good prolonged pain relief up to 8-9 months. She denies side effects of the opioid medications she denies constipation. I will prescribe her medications on 07/07/2024. [facility] Medical History Finger pain, left Patent foramen ovale Migraine Hypothyroid HTN (hypertension) Chronic pain syndrome Spondylosis of lumbar spine Osteoarthritis of knees, bilateral Surgical History History of back surgery Hx of section Hx laparoscopic cholecystectomy Social History Patient Tobacco Use Status: Never used Tobacco Second Hand Smoke Exposure: No Review of Systems Const All systems reviewed & are unremarkable except as noted in HPI and below ENT Reports Normal hearing present Neuro Reports Normal hearing present, Denies Abnormal speech present, Denies confusion and Denies Sensory deficit (Neuro) Psych Denies confusion Physical Exam Vital Signs: Last Vital Signs Pulse 79 11/22/24 10:31 Resp 18 11/22/24 10:31 BP 124/65 11/22/24 10:31 Pulse Ox 100 11/22/24 10:31 Oxygen Delivery Method Room Air 11/22/24 10:31 Const General: no acute distress; No confusion Orientation/consciousness: patient oriented x3 and No confusion Eyes General: appearance normal, both eyes and all related structures Pupils: Equal, round and reactive pupils present EOM: EOMs intact bilaterally Neck Other: Limited range of motion cervical spine. Tenderness on palpation in the paraspinal spinal region of the cervical spine. Valsalva is negative for pain exacerbation. Flexing head backwards and axial compression of the cervical spine aggravate the pain. Neck: No full ROM Chest Chest palpation & inspection: normal inspection of the chest Resp Effort & Inspection: normal respiratory effort, able to speak in complete sentences, normal respiratory pattern, no audible wheezes and no cough Cardio Jugular venous distension: no JVD GI Inspection: Yes normal to inspection Back/Spine/Pelvis Other: Tenderness on palpation in paraspinal spinal region lumbar spine, loading test was positive bilaterally. Flexing forward alleviates the pain and flexing backwards aggravates the pain. Neuro General: patient oriented x3, gait normal and No confusion Cranial nerves: Yes CN's II-XII intact bilaterally, Yes Equal, round and reactive pupils present, Yes Normal hearing present and Yes Ability to bilaterally elevate shoulders present Speech: No Abnormal speech present Gait exam (Neuro): Normal gait present Motor exam (neuro): 5/5 motor strength present throughout Sensory Exam: No Sensory deficit (Neuro) Extrem Other: Lateral rotation of the left hip and medial rotation of the left hip cause severe discomfort in the groin. General: No pedal edema Psych Speech and movement: Normal speech and movement present Affect: normal affect Attitude: cooperative Thought process: Normal thought process present Thought content: Normal thought content present Insight: Good insight present (Psych) Judgement: Good judgement present (Psych) Results Reviewed Results Reviewed: MRI lumbar spine 08/24/2018.: Upper lumbar dextroscoliosis. Lower worst lumbar like vertebral body is a transitional segment and is being referred to as S1. S1 is to is a transitional intervertebral disc space and there is no significant canal or neural foraminal compromise at S1-S2 level. Lumbar spine is relative anatomic alignment in sagittal plane. Vertebral body heights are well maintained. There is no spondylosis or spondylolisthesis. The conus terminates at L1-L2 and unremarkable in morphology. No evidence of arachnoiditis the feel inter min alley and intradural nerves roots appear within normal limits. L5-S1: There is evidence of previous a LIF procedure at this level with metallic artifact in the intervertebral disc space with extensive type 2 marrow signal changes along the endplates. There is no significant facet arthrosis and there is no significant canal or neural foraminal stenosis. Mild and planed osteophyte noted on the right minimally encroaching on the inferior right neural foraminal is noted. L4-5: Severe disc space narrowing is noted with diffuse intradiscal high T2 signal intensity with extensive Schmorl's nodes for may hansen and endplate marrow edema with enhancement along the endplates within the adjustment bone marrow which could be secondary to type 1 marrow signal changes. This finding could be secondary to severe discogenic degenerative changes but they also can be spondyloarthropathy spondyloarthritis. Infectious decide is osteomyelitis is considered less likely. There is concentric disc osteophyte complex slightly asymmetric to the right with elni-gj-fopfjyom flattening of the dural sac and there is prominent dural epidural fat pad and ligamentum flavum thickening with moderate right-sided and mild left-sided facet arthrosis. There is eerr-lt-idpahqfo central canal stenosis without significant lateral recess stenosis and there is ndck-oh-mvrxskfm bilateral neural foraminal stenosis without neural impingement. There is some marrow edema on both sides of the right L4-L5 facet joints consistent with active facet inflammatory changes. There are small bilateral facet joint effusions. L3-L4 disc space height is mildly narrowed on the left with normal disc signal. There is a mild left paramedial disc protrusion with slight flattening of the left side of the dural sac without significant spondylosis. There is mild facet arthrosis and ligamentum flavum thickening with prominent dorsal epidural fat pad without significant canal or neural foraminal stenosis. L2-L3 disc space height is minimally narrowed on the left with normal disc signal and no significant disc bulge or herniation. No significant spondylosis facet arthrosis canal or neural foraminal stenosis. L1-L2 moderate to severe disc space narrowing is noted with Schmorl's nodes disc desiccation and predominantly type 2 degenerative bone marrow signal changes along the endplates with anterior marginal spondylosis. There is a mild left central to left paramedian disc protrusion with slight flattening of the dural sac on the left. No significant facet arthrosis canal or neural foraminal stenosis. Impression 1. Lumbar dextroscoliosis 2. Status post ALIF procedure at L5-S1 with S1 being transitional level with mild right posterior lateral in plane spurring without significant canal or foraminal compromise. 3. Severe disc space narrowing with intradiscal disc changes extensive Schmorl node formation and reactive marrow edema with enhancement along the endplates at L4-5. Concentric endplate spurring is also noted. These findings can be secondary to spondyloarthritis with severe discogenic degenerative changes and are associated with bilateral facet arthrosis right more than left with probable active inflammatory changes in the right facet joint as detailed above. Ntmy-ah-thnatyft central canal stenosis and qqhv-fb-epzemsts bilateral neural foraminal stenosis at this level without neural impingement. Suggest clinical follow-up and clinical correlation with inflammatory markers and CBC. Discogenic degenerative changes at L1-L2 with spondylosis and mild left paramedial disc protrusion. Mild left paramedial disc protrusion at L3-L4. Assessment & Plan Assessment & Plan (1) Osteoarthritis of left hip: Code(s): M16.12 - Unilateral primary osteoarthritis, left hip Category: Medical (2) Left hip pain: Code(s): M25.552 - Pain in left hip Category: Medical (3) Spondylosis of cervical region without myelopathy or radiculopathy: Code(s): M47.812 - Spondylosis without myelopathy or radiculopathy, cervical region Category: Medical (4) Osteoarthritis of knees, bilateral: Code(s): M17.0 - Bilateral primary osteoarthritis of knee Category: Medical (5) Spondylosis of lumbar spine: Code(s): M47.816 - Spondylosis without myelopathy or radiculopathy, lumbar region Category: Medical (6) Chronic pain syndrome: Code(s): G89.4 - Chronic pain syndrome Category: Medical Plan Good results of the sprint PNS for cervical spine and lumbar spine. Good results of the left hip joint injection. She is very satisfied with the care we provide here. She has an current opioid therapy. He has a excess of the medications in her possession which she is result of interventional pain management. Her prescription is due on 12/08/2024. 09/27/2024 naloxone prescription was issued. Medications: Refilled oxycodone Partial Fill upon patient request. 5 mg PO TID PRN 90 tabs 0RF pain 30 days G89.4 - Chronic pain syndrome, M17.0 - Bilateral primary osteoarthritis of knee, M19.011 - Primary osteoarthritis, right shoulder, M19.012 - Primary osteoarthritis, left shoulder, M47.816 - Spondylosis without myelopathy or radiculopathy, lumbar region, Z79.891 - FDC (current) use of opiate analgesic Coding Level of Care Code Est Pt Level 3 (97904) Diagnoses Osteoarthritis of left hip M16.12 Left hip pain M25.552 Spondylosis of cervical region without myelopathy or radiculopathy M47.812 Osteoarthritis of knees, bilateral M17.0 Spondylosis of lumbar spine M47.816 Chronic pain syndrome G89.4
[2024-11-22 10:31] VITALS: BP 124/65; PULSE 79; RESP 18; O2SAT 100
== END 2024-11-22 10:47 | disposition home or self-care (01) ==
LOC: HO.PMC 10:22
PROVIDERS: PCP Internal Medicine; Visit Provider Anesthesiology
DX: G89.4 Chronic pain syndrome (principal); Z79.891 Long term (current) use of opiate analgesic
CPT/HCPCS: 99213

== ENCOUNTER → 2024-11-22 10:22 | Outpatient (BNVA) | payer MEDICARE, SELFPAY | PROVIDERS: PCP Internal Medicine; Visit Provider Anesthesiology | DX: Z51.81 Encounter for therapeutic drug level monitoring (principal); M16.12 Unilateral primary osteoarthritis, left hip; M25.552 Pain in left hip; M47.812 Spondylosis without myelopathy or radiculopathy, cervical region; M17.0 Bilateral primary osteoarthritis of knee; M47.816 Spondylosis without myelopathy or radiculopathy, lumbar region; G89.4 Chronic pain syndrome; Z79.891 Long term (current) use of opiate analgesic | CPT/HCPCS: 99212 ==

== ENCOUNTER 2024-11-28 14:07 | Outpatient (AMB) | payer MEDICARE, SELFPAY ==
[2024-11-28 14:12] VITALS: BP 143/66; PULSE 89; RESP 18; O2SAT 100
--- NOTE | 2024-11-28 14:12 | MHC.OFFVIS ---
Vital Signs 11/28/24 14:12 Weight 142 lb BP 143/66 H Blood Pressure Location Lt brachial Position Sitting Respiration 18 Pulse 89 Pulse Source Pulse Oximeter Pulse Oximetry (%) 100 Intake Visit Reasons: S/P RIGHT SPRINT PNS L5 Veterinary Physiologist Required: No Allergies sulfamethoxazole (From Bactrim) Allergy (Verified 11/28/24 14:13) anaphylaxis trimethoprim (From Bactrim) Allergy (Verified 11/28/24 14:13) anaphylaxis HPI Comments Details: Marilyn is back in my office for the follow-up after started sprint PNS on the right lower back. She reports good stimulation. She is waiting for the left sided implantation. We examined the site of the insertion of the electrode today and dressing was changed. There is no redness no pathological discharge no swelling. Patient is doing okay. She reports very good pain relief from both cervical and and lower back peripheral nerve stimulation sprint. She states that she is very satisfied with care she is provided with us. Currently she is wearing right-sided sprint PNS into weeks we will completed with left-sided device. She is here for pill count today, her pill count is correct she presented with 52 pills in her possession. She supposed to have 48 pills in her possession. That reflects good pain relief from interventional pain management and demonstrates responsible attitude from opioid medications. Her prescription is due on 12/08/2024. She reports new pain generators today she reports pain in the left hip area. She reports pain radiating in the groin. She was examined see the physical exam as below. Pill count was performed today. She presented herself with 46 pills in her possession. She supposed to have only 42 pills in her possession. This demonstrates responsible attitude to were the opioid medications. She is reporting good pain relief from sprint PNS. 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 Prior: She completed insertion of bilateral sprint PNS for the cervical spine on 08/21/2024. She completed 2nd treatment of her sprint PNS for the lumbar spine 2 weeks ago in the beginning of 01/25/2024. Sprint PNS in November of 2022 resulted on very good prolonged pain relief up to 8-9 months. She denies side effects of the opioid medications she denies constipation. I will prescribe her medications on 07/07/2024. [facility] Medical History Finger pain, left Patent foramen ovale Migraine Hypothyroid HTN (hypertension) Chronic pain syndrome Spondylosis of lumbar spine Osteoarthritis of knees, bilateral Surgical History History of back surgery Hx of section Hx laparoscopic cholecystectomy Social History Patient Tobacco Use Status: Never used Tobacco Second Hand Smoke Exposure: No Review of Systems Const All systems reviewed & are unremarkable except as noted in HPI and below ENT Reports Normal hearing present Neuro Reports Normal hearing present, Denies Abnormal speech present, Denies confusion and Denies Sensory deficit (Neuro) Psych Denies confusion Physical Exam Vital Signs: Last Vital Signs Pulse 89 11/28/24 14:12 Resp 18 11/28/24 14:12 BP 143/66 H 11/28/24 14:12 Pulse Ox 100 11/28/24 14:12 Const General: no acute distress; No confusion Orientation/consciousness: patient oriented x3 and No confusion Eyes General: appearance normal, both eyes and all related structures Pupils: Equal, round and reactive pupils present EOM: EOMs intact bilaterally Neck Other: Limited range of motion cervical spine. Tenderness on palpation in the paraspinal spinal region of the cervical spine. Valsalva is negative for pain exacerbation. Flexing head backwards and axial compression of the cervical spine aggravate the pain. Neck: No full ROM Chest Chest palpation & inspection: normal inspection of the chest Resp Effort & Inspection: normal respiratory effort, able to speak in complete sentences, normal respiratory pattern, no audible wheezes and no cough Cardio Jugular venous distension: no JVD GI Inspection: Yes normal to inspection Back/Spine/Pelvis Other: Tenderness on palpation in paraspinal spinal region lumbar spine, loading test was positive bilaterally. Flexing forward alleviates the pain and flexing backwards aggravates the pain. Neuro General: patient oriented x3, gait normal and No confusion Cranial nerves: Yes CN's II-XII intact bilaterally, Yes Equal, round and reactive pupils present, Yes Normal hearing present and Yes Ability to bilaterally elevate shoulders present Speech: No Abnormal speech present Gait exam (Neuro): Normal gait present Motor exam (neuro): 5/5 motor strength present throughout Sensory Exam: No Sensory deficit (Neuro) Extrem Other: Lateral rotation of the left hip and medial rotation of the left hip cause severe discomfort in the groin. General: No pedal edema Psych Speech and movement: Normal speech and movement present Affect: normal affect Attitude: cooperative Thought process: Normal thought process present Thought content: Normal thought content present Insight: Good insight present (Psych) Judgement: Good judgement present (Psych) Assessment & Plan Assessment & Plan (1) Osteoarthritis of left hip: Code(s): M16.12 - Unilateral primary osteoarthritis, left hip Category: Medical (2) Left hip pain: Code(s): M25.552 - Pain in left hip Category: Medical (3) Spondylosis of cervical region without myelopathy or radiculopathy: Code(s): M47.812 - Spondylosis without myelopathy or radiculopathy, cervical region Category: Medical (4) Osteoarthritis of knees, bilateral: Code(s): M17.0 - Bilateral primary osteoarthritis of knee Category: Medical (5) Spondylosis of lumbar spine: Code(s): M47.816 - Spondylosis without myelopathy or radiculopathy, lumbar region Category: Medical (6) Chronic pain syndrome: Code(s): G89.4 - Chronic pain syndrome Category: Medical Plan Good results of the sprint PNS for cervical spine and lumbar spine. Good results of the left hip joint injection. Now with the pain in the lumbar spine coming back we started to apply the lumbar sprint PNS to the patient again. She is waiting for left-sided procedure right-sided procedure was completed 1 week ago. She is very satisfied with the care we provide here. She has an current opioid therapy. He has a excess of the medications in her possession which she is result of interventional pain management. Coding Level of Care Code Est Pt Level 3 (50473) Diagnoses Osteoarthritis of left hip M16.12 Left hip pain M25.552 Spondylosis of cervical region without myelopathy or radiculopathy M47.812 Osteoarthritis of knees, bilateral M17.0 Spondylosis of lumbar spine M47.816 Chronic pain syndrome G89.4
== END 2024-11-28 14:36 | disposition home or self-care (01) ==
LOC: HO.PMC 14:08
PROVIDERS: PCP Internal Medicine; Visit Provider Anesthesiology
DX: M16.12 Unilateral primary osteoarthritis, left hip (principal); M25.552 Pain in left hip; M47.812 Spondylosis without myelopathy or radiculopathy, cervical region; M17.0 Bilateral primary osteoarthritis of knee; M47.816 Spondylosis without myelopathy or radiculopathy, lumbar region; G89.4 Chronic pain syndrome
CPT/HCPCS: 99024

== ENCOUNTER → 2024-11-28 14:07 | Outpatient (BNVA) | payer MEDICARE, SELFPAY | PROVIDERS: PCP Internal Medicine; Visit Provider Anesthesiology | DX: M16.12 Unilateral primary osteoarthritis, left hip (principal); M25.552 Pain in left hip; M47.812 Spondylosis without myelopathy or radiculopathy, cervical region; M17.0 Bilateral primary osteoarthritis of knee; G89.4 Chronic pain syndrome | CPT/HCPCS: 99212 ==

== ENCOUNTER 2024-12-04 07:36 | Outpatient (REF) | payer MEDICARE, SELFPAY ==
--- NOTE | ~2024-12-04 | FL_ITS ---
EXAMINATION: FL GUIDANCE ONLY HISTORY: M47.816 - Spondylosis without myelopathy or radiculopathy, lumbar region COMPARISON: Comparison is made with the prior examination dated 11/20/2024. TECHNIQUE: Fluoroscopy time: 0.1 minute. Cumulative Dose: 0.938 mGy. DAP: 0.0163 mGym2 Images: 1. FINDINGS: A single fluoroscopic spot film of the lumbar spine demonstrates an electrode in place on the right. FL/FL guidance in treatment room IMPRESSION: Fluoroscopy during procedure. Please see procedure report for additional information. Electronically signed by: Dylan Gordon MD 12/04/2024 12:33 PM EDT
== END 2024-12-04 07:37 | disposition home or self-care (01) ==
LOC: CF 07:36
PROVIDERS: Visit Provider Anesthesiology
DX: M47.816 Spondylosis without myelopathy or radiculopathy, lumbar region (principal)
CPT/HCPCS: 64555; 64590; C1778; J2003; J2795; Q9967

== ENCOUNTER 2024-12-04 09:23 | Outpatient (AMB) | payer MEDICARE, SELFPAY ==
--- NOTE | 2024-12-04 09:28 | MHC.OFFVIS ---
Vital Signs 12/04/24 09:29 12/04/24 09:58 Height 5 ft 2 in Weight 142 lb BMI 26.0 BP 132/71 149/71 H Blood Pressure Location Lt brachial Lt brachial Position Sitting Sitting Respiration 18 18 Pulse 83 80 Pulse Source Pulse Oximeter Pulse Oximeter Pulse Oximetry (%) 97 98 Oxygen Delivery Method Room Air Room Air Intake Visit Reasons: LEFT SPRINT PNS L5 Authorization Coordinator Required: No Allergies sulfamethoxazole (From Bactrim) Allergy (Verified 11/28/24 14:13) anaphylaxis trimethoprim (From Bactrim) Allergy (Verified 11/28/24 14:13) anaphylaxis PFSH Medical History Finger pain, left Patent foramen ovale Migraine Hypothyroid HTN (hypertension) Chronic pain syndrome Spondylosis of lumbar spine Osteoarthritis of knees, bilateral Surgical History History of back surgery Hx of section Hx laparoscopic cholecystectomy Social History Patient Tobacco Use Status: Never used Tobacco Second Hand Smoke Exposure: No Physical Exam Vital Signs: Last Vital Signs Pulse 80 12/04/24 09:58 Resp 18 12/04/24 09:58 BP 149/71 H 12/04/24 09:58 Pulse Ox 98 12/04/24 09:58 Oxygen Delivery Method Room Air 12/04/24 09:58 BMI result Body Mass Index 26.0 Office Procedures Sprint PNS Device: Sprint PNS Device [id number] Percutaneous Peripheral Neuroelectrode Procedure: 93113 - Percutaneous Peripheral Neuroelectrode Procedure code (CPT) selection complete Office Meds lidocaine HCl 10 mg/mL (1 %) injection solution Performing Provider: Goran Crook MD Performing Location: [facility] Administered by: Mari Diaz LPN on 12/04/24 09:47 Dose Route Admin Location Dispensed Lot Number Expiration Date NDC Window Framer 5 mL subcut 5 mL Total Dispensed Waste 5 mL 0 % Assessment & Plan Assessment & Plan (1) Spondylosis of lumbar spine: Code(s): M47.816 - Spondylosis without myelopathy or radiculopathy, lumbar region Category: Medical (2) Spondylosis of lumbar region without myelopathy or radiculopathy: Code(s): M47.816 - Spondylosis without myelopathy or radiculopathy, lumbar region Category: Medical Plan Percutaneous implantation of peripheral nerve stimulation Sprint system L5 left side. the risks, benefits and alternatives were discussed with the patient and informed consent was obtained, patient was placed in the prone position and padded to foster comfort. Time out was performed delineating correct site and side of the procedure , name and of the patient, patient participated in time out procedure. Theupper back and posterior neck of the patient was prepped with ChloraPrep and draped with sterile self adhesive utility towels. C-arm was brought over the operating field and clear picture of the L5 lamina on the left was delineated on the screen. The upper central portion of the lamina was chosen as a target of the needle tip insertion . After identifying and marking the intended target, the skin around the planned entry point and the subcutaneous tissues were injected with local anesthetic forming skin wheal.. A percutaneous sleeve and stimulating probe lead introduction system were assembled, inserted and advanced through the skin wheal to the point of interest under C-arm view left L5 lamina., the introducer needle was delivered to a location in proximity to the nerve. Multiple stimulation parameters were used to deliver stimulation to the nerve in concert with stimulating at multiple positions around the nerve. The nerve target acquisition was confirmed noting generation of in the corresponding to the nerve being stimulated. Various electrical parameter combinations were tested, and the lead location was adjusted (physically relocated) until the patient indicated overlapping the distribution of the patient?s typical region of pain. The stimulating probe was removed from the introducer and a percutaneous lead was guided through the needle and delivered to a location in similar proximity to the nerve. Final location was verified with electrical stimulation. The introducer needle was removed, and the exposed end of the percutaneous lead was attached to an external stimulator unit. At the end of the case various electrical parameter combinations were again tested until the patient indicated paresthesia or muscle tension overlapping the distribution of the patient?s typical region of pain. After confirming that lead impedance was in the normal range, the external unit was detached, the needle was removed, and the lead was anchored at the skin. The leads were threaded into the connector block and electrical continuity and desired patient response was confirmed. The connector block was attached to the external stimulator unit. The site was covered with a sterile occlusive dressing and a image was taken to document final placement. Upon completion of the procedure the patient was taken outside the OR where she recovered uneventfully she went home without immediate complications. Orders: Orders FL guidance in treatment room Today Francia Arriaga APRN, ALPESH M47.816 - Spondylosis without myelopathy or radiculopathy, lumbar region AMB Sprint PNS Today Goran Crook MD M47.816 - Spondylosis without myelopathy or radiculopathy, lumbar region Coding Level of Care Code Procedure Only Diagnoses Spondylosis of lumbar spine M47.816 Spondylosis of lumbar region without myelopathy or radiculopathy M47.816 CPT Codes Sprint PNS - Sprint PNS Device: Sprint PNS Device ([id number]) Sprint PNS - SPRINT: 93024 - Percutaneous Peripheral Neuroelectrode ([id number]) Implantable Device Implantable Device Implantable Devices Qty Window Framer Implant Date Expiration Date Analgesic PENS system 1 [employer] 11/20/24 Analgesic PENS system 1 [employer] 12/04/24 05/07/26
[2024-12-04 09:29] VITALS: BP 132/71; PULSE 83; RESP 18; O2SAT 97; BMI 26.0
[2024-12-04 09:58] VITALS: BP 149/71; PULSE 80; RESP 18; O2SAT 98
== END 2024-12-04 10:07 | disposition home or self-care (01) ==
LOC: HO.PMCPRC 09:23
PROVIDERS: PCP Internal Medicine; Visit Provider Anesthesiology
DX: M47.816 Spondylosis without myelopathy or radiculopathy, lumbar region (principal)
CPT/HCPCS: 64555; 64590

== ENCOUNTER 2024-12-12 14:54 | Outpatient (AMB) | payer MEDICARE, SELFPAY ==
[2024-12-12 14:56] VITALS: BP 135/66; PULSE 93; RESP 16; O2SAT 95; BMI 26.9
--- NOTE | 2024-12-12 14:56 | A.OFFVIS_ITS ---
Vital Signs 12/12/24 14:56 Height 5 ft 2 in Weight 147 lb BMI 26.9 BP 135/66 Blood Pressure Location Rt brachial Position Sitting Respiration 16 Pulse 93 Pulse Source Pulse Oximeter Pulse Oximetry (%) 95 Oxygen Delivery Method Room Air Intake Visit Reasons: S/P LEFT SPRINT PNS L5 Intake Note: Dressing Changed, Sites looks healthy and clean. 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 She reports good stimulation. She is very satisfied with the stimulation. She reports minimal level of pain. We examined the site of the insertion of the electrode today and dressing was changed. There is no redness no pathological discharge no swelling. Patient is doing okay. She reports very good pain relief from both cervical and and lower back peripheral nerve stimulation sprint. She states that she is very satisfied with care she is provided with us. Currently she is wearing right-sided sprint PNS into weeks we will completed with left-sided device. She is here for pill count today, her pill count is correct she presented with 52 pills in her possession. She supposed to have 48 pills in her possession. That reflects good pain relief from interventional pain management and demonstrates responsible attitude from opioid medications. Her prescription is due on 12/08/2024. She reports new pain generators today she reports pain in the left hip area. She reports pain radiating in the groin. She was examined see the physical exam as below. Pill count was performed today. She presented herself with 46 pills in her possession. She supposed to have only 42 pills in her possession. This demonstrates responsible attitude to were the opioid medications. She is reporting good pain relief from sprint PNS. 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 Prior: She completed insertion of bilateral sprint PNS for the cervical spine on 08/21/2024. She completed 2nd treatment of her sprint PNS for the lumbar spine 2 weeks ago in the beginning of 01/25/2024. Sprint PNS in November of 2022 resulted on very good prolonged pain relief up to 8-9 months. She denies side effects of the opioid medications she denies constipation. I will prescribe her medications on 07/07/2024. [facility] Medical History Finger pain, left Patent foramen ovale Migraine Hypothyroid HTN (hypertension) Chronic pain syndrome Spondylosis of lumbar spine Osteoarthritis of knees, bilateral Surgical History History of back surgery Hx of section Hx laparoscopic cholecystectomy Social History Patient Tobacco Use Status: Never used Tobacco Second Hand Smoke Exposure: No Review of Systems Const All systems reviewed & are unremarkable except as noted in HPI and below ENT Reports Normal hearing present Neuro Reports Normal hearing present, Denies Abnormal speech present, Denies confusion and Denies Sensory deficit (Neuro) Psych Denies confusion Physical Exam Vital Signs: Last Vital Signs Pulse 93 12/12/24 14:56 Resp 16 12/12/24 14:56 BP 135/66 12/12/24 14:56 Pulse Ox 95 12/12/24 14:56 Oxygen Delivery Method Room Air 12/12/24 14:56 BMI result Body Mass Index 26.9 Const General: no acute distress; No confusion Orientation/consciousness: patient oriented x3 and No confusion Eyes General: appearance normal, both eyes and all related structures Pupils: Equal, round and reactive pupils present EOM: EOMs intact bilaterally Neck Other: Limited range of motion cervical spine. Tenderness on palpation in the paraspi nal spinal region of the cervical spine. Valsalva is negative for pain exacerbation. Flexing head backwards and axial compression of the cervical spine aggravate the pain. Neck: No full ROM Chest Chest palpation & inspection: normal inspection of the chest Resp Effort & Inspection: normal respiratory effort, able to speak in complete sentences, normal respiratory pattern, no audible wheezes and no cough Cardio Jugular venous distension: no JVD GI Inspection: Yes normal to inspection Back/Spine/Pelvis Other: Tenderness on palpation in paraspinal spinal region lumbar spine, loading test was positive bilaterally. Flexing forward alleviates the pain and flexing backwards aggravates the pain. Neuro General: patient oriented x3, gait normal and No confusion Cranial nerves: Yes CN's II-XII intact bilaterally, Yes Equal, round and reactive pupils present, Yes Normal hearing present and Yes Ability to bilaterally elevate shoulders present Speech: No Abnormal speech present Gait exam (Neuro): Normal gait present Motor exam (neuro): 5/5 motor strength present throughout Sensory Exam: No Sensory deficit (Neuro) Extrem Other: Lateral rotation of the left hip and medial rotation of the left hip cause severe discomfort in the groin. General: No pedal edema Psych Speech and movement: Normal speech and movement present Affect: normal affect Attitude: cooperative Thought process: Normal thought process present Thought content: Normal thought content present Insight: Good insight present (Psych) Judgement: Good judgement present (Psych) Assessment & Plan Assessment & Plan (1) Osteoarthritis of left hip: Code(s): M16.12 - Unilateral primary osteoarthritis, left hip Category: Medical (2) Left hip pain: Code(s): M25.552 - Pain in left hip Category: Medical (3) Spondylosis of cervical region without myelopathy or radiculopathy: Code(s): M47.812 - Spondylosis without myelopathy or radiculopathy, cervical region Category: Medical (4) Osteoarthritis of knees, bilateral: Code(s): M17.0 - Bilateral primary osteoarthritis of knee Category: Medical (5) Spondylosis of lumbar spine: Code(s): M47.816 - Spondylosis without myelopathy or radiculopathy, lumbar region Category: Medical (6) Chronic pain syndrome: Code(s): G89.4 - Chronic pain syndrome Category: Medical Plan Good results of the sprint PNS for cervical spine and lumbar spine. Good results of the left hip joint injection. Repeat sprint PNS also gave very good results, I will continue observation. I will see this patient for pill count. She is very satisfied with the care we provide here. She has an current opioid therapy. He has a excess of the medications in her possession which she is result of interventional pain management. Coding Level of Care Code Est Pt Level 3 (46083) Diagnoses Osteoarthritis of left hip M16.12 Left hip pain M25.552 Spondylosis of cervical region without myelopathy or radiculopathy M47.812 Osteoarthritis of knees, bilateral M17.0 Spondylosis of lumbar spine M47.816 Chronic pain syndrome G89.4
== END 2024-12-12 15:09 | disposition home or self-care (01) ==
LOC: HO.PMC 14:54
PROVIDERS: PCP Internal Medicine; Visit Provider Anesthesiology
DX: M16.12 Unilateral primary osteoarthritis, left hip (principal); M25.552 Pain in left hip; M47.812 Spondylosis without myelopathy or radiculopathy, cervical region; M17.0 Bilateral primary osteoarthritis of knee; M47.816 Spondylosis without myelopathy or radiculopathy, lumbar region; G89.4 Chronic pain syndrome
CPT/HCPCS: 99024

== ENCOUNTER → 2024-12-12 14:54 | Outpatient (BNVA) | payer MEDICARE, SELFPAY | PROVIDERS: PCP Internal Medicine; Visit Provider Anesthesiology | DX: M16.12 Unilateral primary osteoarthritis, left hip (principal); M25.552 Pain in left hip; F11.90 Opioid use, unspecified, uncomplicated; M17.0 Bilateral primary osteoarthritis of knee; M47.812 Spondylosis without myelopathy or radiculopathy, cervical region; M47.816 Spondylosis without myelopathy or radiculopathy, lumbar region; G89.4 Chronic pain syndrome | CPT/HCPCS: 99212 ==

== ENCOUNTER 2024-12-20 11:29 | Outpatient (AMB) | payer MEDICARE, SELFPAY ==
[2024-12-20 11:42] VITALS: BP 126/61; PULSE 84; RESP 16; O2SAT 96; BMI 26.9
--- NOTE | 2024-12-20 11:42 | MHC.OFFVIS ---
Vital Signs 12/20/24 11:42 Height 5 ft 2 in Weight 147 lb BMI 26.9 BP 126/61 Blood Pressure Location Rt brachial Position Sitting Respiration 16 Pulse 84 Pulse Source Pulse Oximeter Pulse Oximetry (%) 96 Oxygen Delivery Method Room Air Intake Visit Reasons: PILL COUNT Intake Note: Patient here for a pill count routine of Oxycodone. Per directions patient should have 54 pills. Patient presented 58 pills. Last took 8am. 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 She presented herself with 58 pills in her possession. She supposed to have 54 pills in her possession. This demonstrates responsible attitude of the opioid medications and also points out to good results of sprint PNS. She continues to were the stimulating device. I will see this patient for next pain medication refill in 1 month. She reports very good pain relief from both cervical and and lower back peripheral nerve stimulation sprint. She states that she is very satisfied with care she is provided with us. Currently she is wearing right-sided sprint PNS into weeks we will completed with left-sided device. She is here for pill count today, her pill count is correct she presented with 52 pills in her possession. She supposed to have 48 pills in her possession. That reflects good pain relief from interventional pain management and demonstrates responsible attitude from opioid medications. Her prescription is due on 12/08/2024. She reports new pain generators today she reports pain in the left hip area. She reports pain radiating in the groin. She was examined see the physical exam as below. Pill count was performed today. She presented herself with 46 pills in her possession. She supposed to have only 42 pills in her possession. This demonstrates responsible attitude to were the opioid medications. She is reporting good pain relief from sprint PNS. 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 Prior: She completed insertion of bilateral sprint PNS for the cervical spine on 08/21/2024. She completed 2nd treatment of her sprint PNS for the lumbar spine 2 weeks ago in the beginning of 01/25/2024. Sprint PNS in November of 2022 resulted on very good prolonged pain relief up to 8-9 months. She denies side effects of the opioid medications she denies constipation. I will prescribe her medications on 07/07/2024. [facility] Medical History Finger pain, left Patent foramen ovale Migraine Hypothyroid HTN (hypertension) Chronic pain syndrome Spondylosis of lumbar spine Osteoarthritis of knees, bilateral Surgical History History of back surgery Hx of section Hx laparoscopic cholecystectomy Social History Patient Tobacco Use Status: Never used Tobacco Second Hand Smoke Exposure: No Review of Systems Const All systems reviewed & are unremarkable except as noted in HPI and below ENT Reports Normal hearing present Neuro Reports Normal hearing present, Denies Abnormal speech present, Denies confusion and Denies Sensory deficit (Neuro) Psych Denies confusion Physical Exam Vital Signs: Last Vital Signs Pulse 84 12/20/24 11:42 Resp 16 12/20/24 11:42 BP 126/61 12/20/24 11:42 Pulse Ox 96 12/20/24 11:42 Oxygen Delivery Method Room Air 12/20/24 11:42 BMI result Body Mass Index 26.9 Const General: no acute distress; No confusion Orientation/consciousness: patient oriented x3 and No confusion Eyes General: appearance normal, both eyes and all related structures Pupils: Equal, round and reactive pupils present EOM: EOMs intact bilaterally Neck Other: Limited range of motion cervical spine. Tenderness on palpation in the paraspinal spinal region of the cervical spine. Valsalva is negative for pain exacerbation. Flexing head backwards and axial compression of the cervical spine aggravate the pain. Neck: No full ROM Chest Chest palpation & inspection: normal inspection of the chest Resp Effort & Inspection: normal respiratory effort, able to speak in complete sentences, normal respiratory pattern, no audible wheezes and no cough Cardio Jugular venous distension: no JVD GI Inspection: Yes normal to inspection Back/Spine/Pelvis Other: Tenderness on palpation in paraspinal spinal region lumbar spine, loading test was positive bilaterally. Flexing forward alleviates the pain and flexing backwards aggravates the pain. Neuro General: patient oriented x3, gait normal and No confusion Cranial nerves: Yes CN's II-XII intact bilaterally, Yes Equal, round and reactive pupils present, Yes Normal hearing present and Yes Ability to bilaterally elevate shoulders present Speech: No Abnormal speech present Gait exam (Neuro): Normal gait present Motor exam (neuro): 5/5 motor strength present throughout Sensory Exam: No Sensory deficit (Neuro) Extrem Other: Lateral rotation of the left hip and medial rotation of the left hip cause severe discomfort in the groin. General: No pedal edema Psych Speech and movement: Normal speech and movement present Affect: normal affect Attitude: cooperative Thought process: Normal thought process present Thought content: Normal thought content present Insight: Good insight present (Psych) Judgement: Good judgement present (Psych) Assessment & Plan Assessment & Plan (1) Osteoarthritis of left hip: Code(s): M16.12 - Unilateral primary osteoarthritis, left hip Category: Medical (2) Left hip pain: Code(s): M25.552 - Pain in left hip Category: Medical (3) Spondylosis of cervical region without myelopathy or radiculopathy: Code(s): M47.812 - Spondylosis without myelopathy or radiculopathy, cervical region Category: Medical (4) Osteoarthritis of knees, bilateral: Code(s): M17.0 - Bilateral primary osteoarthritis of knee Category: Medical (5) Spondylosis of lumbar spine: Code(s): M47.816 - Spondylosis without myelopathy or radiculopathy, lumbar region Category: Medical (6) Chronic pain syndrome: Code(s): G89.4 - Chronic pain syndrome Category: Medical Plan Good results of the sprint PNS for cervical spine and lumbar spine. Good results of the left hip joint injection. Repeat sprint PNS also gave very good results, I will continue observation. I will see this patient for pill count. She is very satisfied with the care we provide here. She has an current opioid therapy. Mass pat is reviewed and no questions raised. Patient demonstrates responsible attitude to were the opioid medications. I will prescribe her new prescription of the oxycodone 5 mg t.i.d. due on 01/07/2025. I will see her in 1 month. Medications: Refilled oxycodone Partial Fill upon patient request. 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
== END 2024-12-20 12:12 | disposition home or self-care (01) ==
LOC: HO.PMC 11:29
PROVIDERS: PCP Internal Medicine; Visit Provider Anesthesiology
DX: M16.12 Unilateral primary osteoarthritis, left hip (principal); M25.552 Pain in left hip; M47.812 Spondylosis without myelopathy or radiculopathy, cervical region; M17.0 Bilateral primary osteoarthritis of knee; M47.816 Spondylosis without myelopathy or radiculopathy, lumbar region; G89.4 Chronic pain syndrome
CPT/HCPCS: 99213

== ENCOUNTER → 2024-12-20 11:29 | Outpatient (BNVA) | payer MEDICARE, SELFPAY | PROVIDERS: PCP Internal Medicine; Visit Provider Anesthesiology | DX: Z51.81 Encounter for therapeutic drug level monitoring (principal); M16.12 Unilateral primary osteoarthritis, left hip; M25.552 Pain in left hip; M47.812 Spondylosis without myelopathy or radiculopathy, cervical region; M17.0 Bilateral primary osteoarthritis of knee; M47.816 Spondylosis without myelopathy or radiculopathy, lumbar region; G89.4 Chronic pain syndrome; Z79.891 Long term (current) use of opiate analgesic | CPT/HCPCS: 99212 ==

== ENCOUNTER 2025-01-17 08:49 | Outpatient (AMB) | payer MEDICARE, SELFPAY ==
[2025-01-17 08:54] VITALS: BP 132/63; PULSE 88; RESP 16; O2SAT 97; BMI 26.5
--- NOTE | 2025-01-17 08:54 | A.OFFVIS_ITS ---
Vital Signs 01/17/25 08:54 Height 5 ft 2 in Weight 145 lb BMI 26.5 BP 132/63 Blood Pressure Location Rt brachial Position Sitting Respiration 16 Pulse 88 Pulse Source Pulse Oximeter Pulse Oximetry (%) 97 Oxygen Delivery Method Room Air Intake Visit Reasons: Pill Count/Right Sprint Removal Intake Note: Patient here for pill count for Oxycodone. Per directions patient should have 63 pills. Patient presented 64 pills. Last took 7:30am. Right side Sprint removal successfully Tip Intact. Dressing change for Left side Sprint. 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 She presented herself with 64 pills in her possession. She supposed to have 63 pills in her possession. This demonstrates responsible attitude of the opioid medications and also points out to good results of sprint PNS. She continues to wear the stimulating device. Intra-articular hip steroid injection also resulted in good pain relief. She does not complain on pain in the groin today. she reports overall pain today 3 to 4/10. She is due for new prescription on 02/06/2025. I will see her in 1 month. She reports very good pain relief from both cervical and and lower back peripheral nerve stimulation sprint. She states that she is very satisfied with care she is provided with us. Currently she is wearing right-sided sprint PNS into weeks we will completed with left-sided device Prior: She completed insertion of bilateral sprint PNS for the cervical spine on 08/21/2024. She completed 2nd treatment of her sprint PNS for the lumbar spine 2 weeks ago in the beginning of 01/25/2024. Sprint PNS in November of 2022 resulted on very good prolonged pain relief up to 8-9 months. She denies side effects of the opioid medications she denies constipation. I will prescribe her medications on 07/07/2024. [facility] Medical History Finger pain, left Patent foramen ovale Migraine Hypothyroid HTN (hypertension) Chronic pain syndrome Spondylosis of lumbar spine Osteoarthritis of knees, bilateral Surgical History History of back surgery Hx of section Hx laparoscopic cholecystectomy Social History Patient Tobacco Use Status: Never used Tobacco Second Hand Smoke Exposure: No Review of Systems Const All systems reviewed & are unremarkable except as noted in HPI and below ENT Reports Normal hearing present Neuro Reports Normal hearing present, Denies Abnormal speech present, Denies confusion and Denies Sensory deficit (Neuro) Psych Denies confusion Physical Exam Vital Signs: Last Vital Signs Pulse 88 01/17/25 08:54 Resp 16 01/17/25 08:54 BP 132/63 01/17/25 08:54 Pulse Ox 97 01/17/25 08:54 Oxygen Delivery Method Room Air 01/17/25 08:54 BMI result Body Mass Index 26.5 Const General: no acute distress; No confusion Orientation/consciousness: patient oriented x3 and No confusion Eyes General: appearance normal, both eyes and all related structures Pupils: Equal, round and reactive pupils present EOM: EOMs intact bilaterally Neck Other: Limited range of motion cervical spine. Tenderness on palpation in the paraspinal spinal region of the cervical spine. Valsalva is negative for pain exacerbation. Flexing head backwards and axial compression of the cervical spine aggravate the pain. Neck: No full ROM Chest Chest palpation & inspection: normal inspection of the chest Resp Effort & Inspection: normal respiratory effort, able to speak in complete sentences, normal respiratory pattern, no audible wheezes and no cough Cardio Jugular venous distension: no JVD GI Inspection: Yes normal to inspection Back/Spine/Pelvis Other: Tenderness on palpation in paraspinal spinal region lumbar spine, loading test was positive bilaterally. Flexing forward alleviates the pain and flexing backwards aggravates the pain. Neuro General: patient oriented x3, gait normal and No confusion Cranial nerves: Yes CN's II-XII intact bilaterally, Yes Equal, round and reactive pupils present, Yes Normal hearing present and Yes Ability to bilaterally elevate shoulders present Speech: No Abnormal speech present Gait exam (Neuro): Normal gait present Motor exam (neuro): 5/5 motor strength present throughout Sensory Exam: No Sensory deficit (Neuro) Extrem Other: Lateral rotation of the left hip and medial rotation of the left hip cause severe discomfort in the groin. General: No pedal edema Psych Speech and movement: Normal speech and movement present Affect: normal affect Attitude: cooperative Thought process: Normal thought process present Thought content: Normal thought content present Insight: Good insight present (Psych) Judgement: Good judgement present (Psych) Assessment & Plan Assessment & Plan (1) Osteoarthritis of left hip: Code(s): M16.12 - Unilateral primary osteoarthritis, left hip Category: Medical (2) Left hip pain: Code(s): M25.552 - Pain in left hip Category: Medical (3) Spondylosis of cervical region without myelopathy or radiculopathy: Code(s): M47.812 - Spondylosis without myelopathy or radiculopathy, cervical region Category: Medical (4) Osteoarthritis of knees, bilateral: Code(s): M17.0 - Bilateral primary osteoarthritis of knee Category: Medical (5) Spondylosis of lumbar spine: Code(s): M47.816 - Spondylosis without myelopathy or radiculopathy, lumbar region Category: Medical (6) Chronic pain syndrome: Code(s): G89.4 - Chronic pain syndrome Category: Medical Plan Good results of the sprint PNS for cervical spine and lumbar spine. Good results of the left hip joint injection. Repeat sprint PNS also gave very good results, I will continue observation. I will see this patient for pill count. She is very satisfied with the care we provide here. She has an current opioid therapy. Mass pat is reviewed and no questions raised. Patient demonstrates responsible attitude to were the opioid medications. I will prescribe her new prescription of the oxycodone 5 mg t.i.d. due on 02/06/2025. I will see her in 1 month. Medications: Refilled oxycodone Partial Fill upon patient request. 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
== END 2025-01-17 09:10 | disposition home or self-care (01) ==
LOC: HO.PMC 08:50
PROVIDERS: PCP Internal Medicine; Visit Provider Anesthesiology
DX: M16.12 Unilateral primary osteoarthritis, left hip (principal); M25.552 Pain in left hip; M47.812 Spondylosis without myelopathy or radiculopathy, cervical region; M17.0 Bilateral primary osteoarthritis of knee; M47.816 Spondylosis without myelopathy or radiculopathy, lumbar region; G89.4 Chronic pain syndrome
CPT/HCPCS: 99213

== ENCOUNTER → 2025-01-17 08:49 | Outpatient (BNVA) | payer MEDICARE, SELFPAY | PROVIDERS: PCP Internal Medicine; Visit Provider Anesthesiology | DX: G89.4 Chronic pain syndrome (principal); M16.12 Unilateral primary osteoarthritis, left hip; M47.812 Spondylosis without myelopathy or radiculopathy, cervical region; M17.0 Bilateral primary osteoarthritis of knee; M47.816 Spondylosis without myelopathy or radiculopathy, lumbar region; Z79.891 Long term (current) use of opiate analgesic | CPT/HCPCS: 99212 ==

== ENCOUNTER 2025-01-30 09:51 | Outpatient (AMB) | payer MEDICARE, SELFPAY ==
--- NOTE | 2025-01-30 10:00 | A.OFFVIS_ITS ---
Vital Signs 01/30/25 10:01 Height 5 ft 2 in Weight 145 lb BMI 26.5 BP 128/61 Blood Pressure Location Lt brachial Position Sitting Respiration 16 Pulse 76 Pulse Source Pulse Oximeter Pulse Oximetry (%) 93 Oxygen Delivery Method Room Air Intake Visit Reasons: Removal: LEFT SPRINT PNS L5 Intake Note: Left side Sprint removed successfully. 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 The dressing was changed today and the cables were removed, no signs of infection or inflammation was observed. Sterile bandaid were applied. The patient is aware of hygine limitations for the next 2 days. I will see the patient for the pain medication refill. Prior: She completed insertion of bilateral sprint PNS for the cervical spine on 08/21/2024. She completed 2nd treatment of her sprint PNS for the lumbar spine 2 weeks ago in the beginning of 01/25/2024. Sprint PNS in November of 2022 resulted on very good prolonged pain relief up to 8-9 months. She denies side effects of the opioid medications she denies constipation. I will prescribe her medications on 07/07/2024. [facility] Medical History Finger pain, left Patent foramen ovale Migraine Hypothyroid HTN (hypertension) Chronic pain syndrome Spondylosis of lumbar spine Osteoarthritis of knees, bilateral Surgical History History of back surgery Hx of section Hx laparoscopic cholecystectomy Social History Patient Tobacco Use Status: Never used Tobacco Second Hand Smoke Exposure: No Review of Systems Const All systems reviewed & are unremarkable except as noted in HPI and below ENT Reports Normal hearing present Neuro Reports Normal hearing present, Denies Abnormal speech present, Denies confusion and Denies Sensory deficit (Neuro) Psych Denies confusion Physical Exam Vital Signs: Last Vital Signs Pulse 76 01/30/25 10:01 Resp 16 01/30/25 10:01 BP 128/61 01/30/25 10:01 Pulse Ox 93 01/30/25 10:01 Oxygen Delivery Method Room Air 01/30/25 10:01 BMI result Body Mass Index 26.5 Const General: no acute distress; No confusion Orientation/consciousness: patient oriented x3 and No confusion Eyes General: appearance normal, both eyes and all related structures Pupils: Equal, round and reactive pupils present EOM: EOMs intact bilaterally Neck Other: Limited range of motion cervical spine. Tenderness on palpation in the paraspinal spinal region of the cervical spine. Valsalva is negative for pain exacerbation. Flexing head backwards and axial compression of the cervical spine aggravate the pain. Neck: No full ROM Chest Chest palpation & inspection: normal inspection of the chest Resp Effort & Inspection: normal respiratory effort, able to speak in complete sentences, normal respiratory pattern, no audible wheezes and no cough Cardio Jugular venous distension: no JVD GI Inspection: Yes normal to inspection Back/Spine/Pelvis Other: Tenderness on palpation in paraspinal spinal region lumbar spine, loading test was positive bilaterally. Flexing forward alleviates the pain and flexing backwards aggravates the pain. Neuro General: patient oriented x3, gait normal and No confusion Cranial nerves: Yes CN's II-XII intact bilaterally, Yes Equal, round and reactive pupils present, Yes Normal hearing present and Yes Ability to bilaterally elevate shoulders present Speech: No Abnormal speech present Gait exam (Neuro): Normal gait present Motor exam (neuro): 5/5 motor strength present throughout Sensory Exam: No Sensory deficit (Neuro) Extrem Other: Lateral rotation of the left hip and medial rotation of the left hip cause severe discomfort in the groin. General: No pedal edema Psych Speech and movement: Normal speech and movement present Affect: normal affect Attitude: cooperative Thought process: Normal thought process present Thought content: Normal thought content present Insight: Good insight present (Psych) Judgement: Good judgement present (Psych) Assessment & Plan Assessment & Plan (1) Osteoarthritis of left hip: Code(s): M16.12 - Unilateral primary osteoarthritis, left hip Category: Medical (2) Left hip pain: Code(s): M25.552 - Pain in left hip Category: Medical (3) Spondylosis of cervical region without myelopathy or radiculopathy: Code(s): M47.812 - Spondylosis without myelopathy or radiculopathy, cervical region Category: Medical (4) Osteoarthritis of knees, bilateral: Code(s): M17.0 - Bilateral primary osteoarthritis of knee Category: Medical (5) Spondylosis of lumbar spine: Code(s): M47.816 - Spondylosis without myelopathy or radiculopathy, lumbar region Category: Medical (6) Chronic pain syndrome: Code(s): G89.4 - Chronic pain syndrome Category: Medical Plan Good results of the sprint PNS for cervical spine and lumbar spine. Good results of the left hip joint injection. Repeat sprint PNS also gave very good results, I will continue observation. I will see this patient for pill count and meds refill. She is very satisfied with the care we provide here. Coding Level of Care Code Est Pt Level 3 (93831) Diagnoses Osteoarthritis of left hip M16.12 Left hip pain M25.552 Spondylosis of cervical region without myelopathy or radiculopathy M47.812 Osteoarthritis of knees, bilateral M17.0 Spondylosis of lumbar spine M47.816 Chronic pain syndrome G89.4
[2025-01-30 10:01] VITALS: BP 128/61; PULSE 76; RESP 16; O2SAT 93; BMI 26.5
== END 2025-01-30 10:22 | disposition home or self-care (01) ==
LOC: HO.PMC 09:52
PROVIDERS: PCP Internal Medicine; Visit Provider Anesthesiology
DX: M16.12 Unilateral primary osteoarthritis, left hip (principal); M25.552 Pain in left hip; M47.812 Spondylosis without myelopathy or radiculopathy, cervical region; M17.0 Bilateral primary osteoarthritis of knee; M47.816 Spondylosis without myelopathy or radiculopathy, lumbar region; G89.4 Chronic pain syndrome; M54.9 Dorsalgia, unspecified
CPT/HCPCS: 64585

== ENCOUNTER → 2025-01-30 09:51 | Outpatient (BNVA) | payer MEDICARE, SELFPAY | PROVIDERS: PCP Internal Medicine; Visit Provider Anesthesiology | DX: Z45.42 Encounter for adjustment and management of neurostimulator (principal); G89.4 Chronic pain syndrome; M16.12 Unilateral primary osteoarthritis, left hip; M25.552 Pain in left hip; M48.12 Ankylosing hyperostosis [Forestier], cervical region; M17.0 Bilateral primary osteoarthritis of knee; M47.816 Spondylosis without myelopathy or radiculopathy, lumbar region | CPT/HCPCS: 64585 ==

== ENCOUNTER 2025-02-21 09:53 | Outpatient (AMB) | payer MEDICARE, SELFPAY ==
[2025-02-21 10:07] VITALS: BP 129/58; PULSE 91; RESP 16; O2SAT 93; BMI 27.1
--- NOTE | 2025-02-21 10:07 | MHC.OFFVIS ---
Vital Signs 02/21/25 10:07 Height 5 ft 2 in Weight 148 lb BMI 27.1 BP 129/58 L Blood Pressure Location Lt brachial Position Sitting Respiration 16 Pulse 91 Pulse Source Pulse Oximeter Pulse Oximetry (%) 93 Oxygen Delivery Method Room Air Intake Visit Reasons: PILL COUNT Intake Note: Patient here for a pill count of Oxycodone per directions patient should have 45 pills, patient presented 49 pills. Last took 8am. 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 She reports very minimal level of pain at this time. She reports opioid medications allow her to stay active and perform activities of daily living better. She still feels effects of cervical and lumbar sprint PNS. She reports that this stimulation gives her good results for cervical and lumbar pain. She denies side effects of the opioid medications. She denies constipation. Mass pat is correct. She supposed to have 45 pills in her possession. She reported with 49 pills in her possession. This demonstrates responsible attitude for opioid medications. I will prescribe her new prescription of her opioid medications due on 03/08/2025. I will see this patient in 1 month. Prior: She completed insertion of bilateral sprint PNS for the cervical spine on 08/21/2024. She completed 2nd treatment of her sprint PNS for the lumbar spine 2 weeks ago in the beginning of 01/25/2024. Sprint PNS in November of 2022 resulted on very good prolonged pain relief up to 8-9 months. She denies side effects of the opioid medications she denies constipation. I will prescribe her medications on 07/07/2024. [facility] Medical History Finger pain, left Patent foramen ovale Migraine Hypothyroid HTN (hypertension) Chronic pain syndrome Spondylosis of lumbar spine Osteoarthritis of knees, bilateral Surgical History History of back surgery Hx of section Hx laparoscopic cholecystectomy Social History (Reviewed 12/29/23 @ 10:45 by NGA Serrano Patient Tobacco Use Status: Never used Tobacco Second Hand Smoke Exposure: No Review of Systems Const All systems reviewed & are unremarkable except as noted in HPI and below ENT Reports Normal hearing present Neuro Reports Normal hearing present, Denies Abnormal speech present, Denies confusion and Denies Sensory deficit (Neuro) Psych Denies confusion Physical Exam Vital Signs: Last Vital Signs Pulse 91 02/21/25 10:07 Resp 16 02/21/25 10:07 BP 129/58 L 02/21/25 10:07 Pulse Ox 93 02/21/25 10:07 Oxygen Delivery Method Room Air 02/21/25 10:07 BMI result Body Mass Index 27.1 Const General: no acute distress; No confusion Orientation/consciousness: patient oriented x3 and No confusion Eyes General: appearance normal, both eyes and all related structures Pupils: Equal, round and reactive pupils present EOM: EOMs intact bilaterally Neck Other: Limited range of motion cervical spine. Tenderness on palpation in the paraspinal spinal region of the cervical spine. Valsalva is negative for pain exacerbation. Flexing head backwards and axial compression of the cervical spine aggravate the pain. Neck: No full ROM Chest Chest palpation & inspection: normal inspection of the chest Resp Effort & Inspection: normal respiratory effort, able to speak in complete sentences, normal respiratory pattern, no audible wheezes and no cough Cardio Jugular venous distension: no JVD GI Inspection: Yes normal to inspection Back/Spine/Pelvis Other: Tenderness on palpation in paraspinal spinal region lumbar spine, loading test was positive bilaterally. Flexing forward alleviates the pain and flexing backwards aggravates the pain. Neuro General: patient oriented x3, gait normal and No confusion Cranial nerves: Yes CN's II-XII intact bilaterally, Yes Equal, round and reactive pupils present, Yes Normal hearing present and Yes Ability to bilaterally elevate shoulders present Speech: No Abnormal speech present Gait exam (Neuro): Normal gait present Motor exam (neuro): 5/5 motor strength present throughout Sensory Exam: No Sensory deficit (Neuro) Extrem Other: Lateral rotation of the left hip and medial rotation of the left hip cause severe discomfort in the groin. General: No pedal edema Psych Speech and movement: Normal speech and movement present Affect: normal affect Attitude: cooperative Thought process: Normal thought process present Thought content: Normal thought content present Insight: Good insight present (Psych) Judgement: Good judgement present (Psych) Assessment & Plan Assessment & Plan (1) Osteoarthritis of left hip: Code(s): M16.12 - Unilateral primary osteoarthritis, left hip Category: Medical (2) Left hip pain: Code(s): M25.552 - Pain in left hip Category: Medical (3) Spondylosis of cervical region without myelopathy or radiculopathy: Code(s): M47.812 - Spondylosis without myelopathy or radiculopathy, cervical region Category: Medical (4) Osteoarthritis of knees, bilateral: Code(s): M17.0 - Bilateral primary osteoarthritis of knee Category: Medical (5) Spondylosis of lumbar spine: Code(s): M47.816 - Spondylosis without myelopathy or radiculopathy, lumbar region Category: Medical (6) Chronic pain syndrome: Code(s): G89.4 - Chronic pain syndrome Category: Medical Plan Good results of the sprint PNS for cervical spine and lumbar spine. Good results of the left hip joint injection. Repeat sprint PNS also gave very good results, I will continue observation. She came today for the pill count. Pill count is correct. Medications: Refilled oxycodone Partial Fill upon patient request. 5 mg PO TID PRN 90 tabs 0RF pain 30 days G89.4 - Chronic pain syndrome, M17.0 - Bilateral primary osteoarthritis of knee, M19.011 - Primary osteoarthritis, right shoulder, M19.012 - Primary osteoarthritis, left shoulder, M47.816 - Spondylosis without myelopathy or radiculopathy, lumbar region, Z79.891 - intermediate (current) use of opiate analgesic Coding Level of Care Code Est Pt Level 3 (86610) Diagnoses Osteoarthritis of left hip M16.12 Left hip pain M25.552 Spondylosis of cervical region without myelopathy or radiculopathy M47.812 Osteoarthritis of knees, bilateral M17.0 Spondylosis of lumbar spine M47.816 Chronic pain syndrome G89.4
== END 2025-02-21 10:18 | disposition home or self-care (01) ==
LOC: HO.PMC 09:53
PROVIDERS: PCP Internal Medicine; Visit Provider Anesthesiology
DX: M16.12 Unilateral primary osteoarthritis, left hip (principal); M25.552 Pain in left hip; M47.812 Spondylosis without myelopathy or radiculopathy, cervical region; M17.0 Bilateral primary osteoarthritis of knee; M47.816 Spondylosis without myelopathy or radiculopathy, lumbar region; G89.4 Chronic pain syndrome
CPT/HCPCS: 99213

== ENCOUNTER → 2025-02-21 09:53 | Outpatient (BNVA) | payer MEDICARE, SELFPAY | PROVIDERS: PCP Internal Medicine; Visit Provider Anesthesiology | DX: M47.812 Spondylosis without myelopathy or radiculopathy, cervical region (principal); M47.816 Spondylosis without myelopathy or radiculopathy, lumbar region; G89.4 Chronic pain syndrome; M17.0 Bilateral primary osteoarthritis of knee; M16.12 Unilateral primary osteoarthritis, left hip; M25.552 Pain in left hip; Z79.891 Long term (current) use of opiate analgesic | CPT/HCPCS: 99212 ==